=== PATIENT | male | born 1960 | race American Indian/Alaskan Native ===

== ENCOUNTER 2017-10-11 18:18 | Emergency (ER) | payer OTHER ==
--- NOTE | 2017-10-11 19:34 | Emergency Department Report ---
Chief Complaint: Laceration/Recheck/Suture Stated Complaint: STITCHES REMOVED Time Seen by Provider: 10/11/17 19:07 - HPI History of Present Illness: She is a 56-year-old -[place] male who is presenting [facility] his [facility] patient has a very extensive surgery performed on secondary to perforated viscus with large amounts of purulent material overlying most of his bowel. The patient had a colostomy done at that time patient was sutured using retention sutures that are in place currently. Patient was sent to the emergency department today to have his sutures removed. Patient has no further complaints at this time. Patient has a history of malignant neoplasm of the colon and again he also had a bowel rupture that was treated with colostomy and exploratory laparotomy. Patient during that visit was septic was given broad-spectrum antibiotics and white count did decrease significantly while in the emergency department. - Exam Vital Signs: Vital Signs 10/11/17 18:39 Temperature 97.9 F Pulse Rate 96 H Respiratory 16 Rate Blood Pressure 104/74 O2 Sat by Pulse 95 Oximetry Physical Exam: Brief physical exam patient is emaciated but in no acute distress. Patient is abdomen is soft he does have retention sutures in place. The wound is clean dry and intact. Patient's heart and lung exams are within normal limits. MSE screening note: Focused history and physical exam performed. Due to findings the following was ordered: ED Medical Decision Making - Medical Decision Making I slightly to the patient that unfortunately did not remove this type of suture from the emergency department To see the surgeon that placed the sutures. Because the patient does not appear to be in any distress and does not appear to be septic at this time I do not believe an emergent surgery consult is warranted. Patient will be sent back to [facility] and information for this surgeon who placed the sutures have been given. ED Disposition for MSE Clinical Impression: Encounter for wound care Disposition: DC-01 TO HOME OR SELFCARE Is pt being admited?: No Does the pt Need Aspirin: No Condition: Stable Additional Instructions: Please follow up with Dr. Connolly regarding the patient's sutures. This type of sutures: Hypertension suture is not removed from the emergency department. Because this is a surgical closure please consult the patient's surgeon for further management. Referrals: CHIKA CONNOLLY MD [Staff Physician] - 3-5 Days
[2017-10-11 21:24] VITALS: BP 113/73
== END 2017-10-11 21:15 | disposition home or self-care (01) ==
LOC: ED 18:18
DX: Z48.01 Encounter for change or removal of surgical wound dressing (principal); Z93.3 Colostomy status; Z53.21 Procedure and treatment not carried out due to patient leaving prior to being seen by health care provider

== ENCOUNTER 2017-10-12 12:24 | Inpatient (IN) | payer OTHER ==
[2017-10-12] MEDS ORDERED: NACL 0.9% 1000 ML 1,000 ML ONE (12:42)
[2017-10-12] MEDS ORDERED: D50W (25GM) Syringe IV ONE ×7 (12:42→19:31)
--- NOTE | 2017-10-12 13:23 | Emergency Department Report ---
HPI - General Time Seen by Provider: 10/12/17 12:56 - HPI HPI: Room 2 The patient is a 56-year-old male sent from alf for "failure to thrive. " The nurse at the alf states this morning she noticed a change in the patient's mental status has seemed more lethargic and was difficult to arouse. Nursing states they did not check an Accu-Chek at the alf. Patient was sent to the ED for evaluation. The patient arrived to the ED nonverbal and unresponsive. An Accu-Chek revealed hypoglycemia so the patient was subsequently administered D50 Location: Mental state Duration: Noticed this morning Quality: Lethargy Severity: Severe Modifying factors: [see above] Context: [see above] Mode of transportation: [not driving] ED Past Medical Hx - Past Medical History Previous Medical History?: Yes Hx Hypertension: Yes Hx Deep Vein Thrombosis: Yes Hx Pulmonary Embolism: Yes Hx Renal Disease: Yes (acute renal failure) Additional medical history: Perforated bowel, malnutrition, acute resp failure. - Surgical History Additional Surgical History: cervical fusion. Abd surgery (unknown) - Family History Family history: no significant - Social History Smoking Status: Unknown if ever smoked Substance Use Type: None - Medications Home Medications: Home Medications Medication Instructions Recorded Confirmed Last Taken Type ALBUTEROL NEB's [Proventil 0.083% 2.5 mg IH Q6HRT PRN nebu 09/14/17 Unknown Rx NEBS] ALPRAZolam [Xanax TAB] 0.5 mg PO Q12H PRN tablet 09/14/17 Unknown Rx Lisinopril [Zestril TAB] 40 mg PO QDAY tablet 09/14/17 Unknown Rx Lispro Insulin [Humalog] 0 unit SUB-Q Q6HR units 09/14/17 Unknown Rx Min Oil/Petrolatum [Artificial 1 applic OU Q4HR PRN tube 09/14/17 Unknown Rx Tears Ophth Oint] Ranitidine HCl [Zantac 150 MG TAB] 150 mg PO BID #60 tablet 09/14/17 Unknown Rx amLODIPine [Norvasc] 5 mg PO QDAY tablet 09/14/17 Unknown Rx ED Review of Systems ROS: Stated complaint: AMS Other details as noted in HPI Comment: Unobtainable due to pts medical conditions Physical Exam - Physical Exam Vital Signs: Vital Signs 10/12/17 12:56 Pulse Rate 82 Respiratory 12 Rate Blood Pressure 102/74 [Left] O2 Sat by Pulse 96 Oximetry Physical Exam: GENERAL: The patient is a thin cachectic appearing male lying on stretcher unresponsive to verbal or tactile stimuli HEENT: Normocephalic. Atraumatic. Sunken eyes NECK: Trachea midline CHEST/LUNGS: Clear to auscultation. There is no respiratory distress noted. HEART/CARDIOVASCULAR: Regular. There is no tachycardia. There is no gallop rub or murmur. Hypotensive on monitor ABDOMEN: Abdomen is soft, nontender. Patient has normal bowel sounds. There is no abdominal distention. Retention sutures in place SKIN: There is no rash. There is no diaphoresis. NEURO: The patient is lethargic and unresponsive (patient begins to moan and moves all extremities after D50 was administered) MUSCULOSKELETAL: There is no evidence of acute injury. ED Course Vital Signs 10/12/17 12:56 Pulse Rate 82 Respiratory 12 Rate Blood Pressure 102/74 [Left] O2 Sat by Pulse 96 Oximetry - Reevaluation(s) Reevaluation #1: 10/12/17 13:51 Patient awake and alert at this time. Patient currently denies any complaints. ED Medical Decision Making - Lab Data Result diagrams: 10/12/17 13:10 10/12/17 13:10 Laboratory Tests 10/12/17 10/12/17 10/12/17 12:45 12:57 13:10 WBC 7.3 RBC 3.02 L Hgb 10.1 L Hct 30.7 L MCV 101 H MCH 33 H MCHC 33 RDW 18.6 H Plt Count 143 PT INR APTT Sodium Potassium Chloride Carbon Dioxide Anion Gap Creatinine Estimated GFR Glucose POC Glucose < 40 L 192 H Calcium Total Bilirubin AST ALT Alkaline Phosphatase Total Creatine Kinase CK-MB (CK-2) CK-MB (CK-2) Rel Index Troponin T NT-Pro-B Natriuret Pep Total Protein Albumin Albumin/Globulin Ratio 10/12/17 10/12/17 10/12/17 13:10 13:10 13:10 WBC RBC Hgb Hct MCV MCH MCHC RDW Plt Count PT 21.0 H INR 1.70 H APTT 29.2 Sodium 150 H Potassium 5.6 H Chloride 102.1 Carbon Dioxide 33 H Anion Gap 21 Creatinine 1.3 Estimated GFR > 60 Glucose 173 H POC Glucose Calcium 6.0 L Total Bilirubin 1.90 H AST 120 H ALT 77 H Alkaline Phosphatase 716 H Total Creatine Kinase 261 H CK-MB (CK-2) 2.0 CK-MB (CK-2) Rel Index 0.7 Troponin T < 0.010 NT-Pro-B Natriuret Pep 1026 H Total Protein 4.9 L Albumin 2.2 L Albumin/Globulin Ratio 0.8 - EKG Data -: EKG Interpreted by Me EKG shows normal: sinus rhythm Rate: normal - EKG Data When compared to previous EKG there are: previous EKG unavailable Interpretation: other (low voltage in leads 1, 2, 3, aVR, aVL, aVF making interpretation difficult. Repeat EKG and adjusting gain did not improve tracing ) - Differential Diagnosis hypoglycemia, dehydration, ACS, Critical care attestation.: If time is entered above; I have spent that time in minutes in the direct care of this critically ill patient, excluding procedure time. ED Disposition Clinical Impression: Hypoglycemia, Dehydration, Hypernatremia, Mental status alteration Disposition: DC-09 OP ADMIT IP TO THIS HOSP Is pt being admited?: Yes Does the pt Need Aspirin: Yes Condition: Fair Referrals: MARK CALIXTO MD [Primary Care Provider] - 3-5 Days Time of Disposition: 14:58 (hospitalist paged (Dr Madison))
[2017-10-12 13:30] LABS: Hematocrit 30.7 % (35.5-45.6); Hemoglobin 10.1 gm/dl (11.8-15.2); Mean Corpuscular HGB Conc 33 % (32-34); Mean Corpuscular Hemoglobin 33 pg (28-32); Mean Corpuscular Volume 101 fl (84-94); Platelet Count 143 K/mm3 (140-440); Red Blood Count 3.02 M/mm3 (3.65-5.03); Red Cell Distribution Width 18.6 % (13.2-15.2)
[2017-10-12 13:41] LABS: INR 1.7 (0.87-1.13)
[2017-10-12 13:42] LABS: Partial Thromboplastin Time 29.2 Sec. (24.2-36.6)
[2017-10-12 13:49] LABS: Alanine Aminotransferase 77 units/L (7-56); Albumin 2.2 g/dL (3.9-5); Hemolysis Index 19
[2017-10-12 13:55] LABS: BUN/Creatinine Ratio 110; Blood Urea Nitrogen 143 mg/dL (9-20)
[2017-10-12] MEDS ORDERED: NACL 0.9% 500 ML 500 ML IV ONE (14:10)
[2017-10-12 14:18] LABS: Anisocytosis 1+; Band Neutrophils # (Manual) 0.1 K/mm3; Basophils % (Manual) 0 % (0.0-1.8); Eosinophils % (Manual) 0 % (0.0-4.3); Total Cells Counted 100
[2017-10-12 14:19] LABS: Platelet Estimate Cons
[2017-10-12] MEDS ORDERED: D10W 1,000 ML IV SCH (15:00)
--- NOTE | 2017-10-12 15:08 | History and Physical Report ---
History of Present Illness Chief complaint: confusion History of present illness: 56 YO Male [facility] Resident with Dementia, HTN, DVT, PE, Debility presents to ED for evaluation. Pt is lethargic and unable to provide history. Pt history taken from ED staff, EMS. As per SNF staff, the patient has experienced increasing confusion and was found to be difficult to arouse. EMS notified, and upon arrival the patient was found to be stuporous. Pt transported to [facility] for further care and evaluation. PT seen and evaluated in ED and found to be Encephalopathic, and with Myxedema coma, Hypernatremia, Hypoglycemic, hypothermic, and lactic Acidosis. Pt admitted to ICU. Past History Past Medical History: DVT, hypertension, pulmonary embolism, other (dementia, debility) Past Surgical History: bowel surgery, Other (cervical fusion) Social history: . denies: smoking, alcohol abuse Family history: no significant family history (reviewed) Medications and Allergies Allergies Allergy/AdvReac Type Severity Reaction Status Date / Time No Known Allergies Allergy Unverified 04/10/14 02:49 Home Medications Medication Instructions Recorded Confirmed Last Taken Type ALBUTEROL NEB's [Proventil 0.083% 2.5 mg IH Q6HRT PRN nebu 09/14/17 10/12/17 Unknown Rx NEBS] ALPRAZolam [Xanax TAB] 0.5 mg PO Q12H PRN tablet 09/14/17 10/12/17 Unknown Rx Lisinopril [Zestril TAB] 40 mg PO QDAY tablet 09/14/17 10/12/17 Unknown Rx Lispro Insulin [Humalog] 0 unit SUB-Q Q6HR units 09/14/17 10/12/17 Unknown Rx Min Oil/Petrolatum [Artificial 1 applic OU Q4HR PRN tube 09/14/17 10/12/17 Unknown Rx Tears Ophth Oint] Ranitidine HCl [Zantac 150 MG TAB] 150 mg PO BID #60 tablet 09/14/17 10/12/17 Unknown Rx amLODIPine [Norvasc] 5 mg PO QDAY tablet 09/14/17 10/12/17 Unknown Rx Active Meds: Active Medications Dextrose (D10w) 1,000 mls @ 150 mls/hr IV DIRECT IAIN Review of Systems Constitutional: no weight loss, no weight gain, no fever Ears, nose, mouth and throat: no ear pain, no ear discharge, no tinnitis, no decreased hearing, no nose pain, no nasal congestion, no nasal discharge Cardiovascular: no chest pain, no orthopnea, no palpitations, no edema, no syncope, no lightheadedness, no shortness of breath Respiratory: no cough, no cough with sputum, no excessive sputum, no hemoptysis , no shortness of breath, no dyspnea on exertion Gastrointestinal: no abdominal pain, no nausea, no vomiting, no diarrhea, no constipation Genitourinary Male: no hematuria, no flank pain, no discharge, no urinary frequency, no urinary hesitancy Rectal: no pain, no incontinence, no bleeding Musculoskeletal: no neck stiffness, no neck pain, no shooting arm pain, no arm numbness/tingling, no low back pain, no shooting leg pain Integumentary: no rash, no pruritis, no redness, no sores, no wounds, no jaundice Neurological: no head injury, no transient paralysis, no paralysis, no weakness , no parathesias, no numbness, no tingling, no seizures, no syncope Psychiatric: no anxiety, no memory loss, no change in sleep habits, no sleep disturbances, no insomnia, no hypersomnia, no change in appetite, no change in libido Endocrine: no cold intolerance, no heat intolerance, no polyphagia, no excessive thirst, no polydipsia, no polyuria, no nocturia, no excessive sweating Hematologic/Lymphatic: no easy bruising, no easy bleeding, no lymphadenopathy, no lymphedema Allergic/Immunologic: no urticaria, no allergic rhinitis, no wheezing, no persistent infections, no anaphylaxis Exam - Constitutional Vitals: Temp Pulse Resp BP Pulse Ox 94.3 F L 73 14 107/69 100 10/12/17 14:28 10/12/17 14:00 10/12/17 14:00 10/12/17 14:00 10/12/17 14:00 General appearance: Present: mild distress - EENT Eyes: Present: PERRL, miosis ENT: hearing intact, clear oral mucosa - Neck Neck: Present: supple, normal ROM - Respiratory Respiratory effort: normal Respiratory: bilateral: diminished - Cardiovascular Heart Sounds: Present: S1 & S2. Absent: rub, click - Extremities Extremities: pulses symmetrical, No edema Peripheral Pulses: within normal limits - Abdominal General gastrointestinal: Present: soft, non-tender, non-distended, normal bowel sounds Male genitourinary: Present: normal - Integumentary Integumentary: Present: clear, dry, clammy, decreased turgor - Musculoskeletal Musculoskeletal: generalized weakness - Psychiatric Psychiatric: no intact judgment & insight, no memory intact - Neurologic Neurologic: no focal deficits, moves all extremities, no gait normal Results - Labs CBC & Chem 7: 10/12/17 13:10 10/12/17 13:10 Labs: Abnormal lab results 10/12/17 10/12/17 10/12/17 Range/Units 12:45 12:57 13:10 RBC 3.02 L (3.65-5.03) M/mm3 Hgb 10.1 L (11.8-15.2) gm/dl Hct 30.7 L (35.5-45.6) % MCV 101 H (84-94) fl MCH 33 H (28-32) pg RDW 18.6 H (13.2-15.2) % Seg Neuts % (Manual) 83.0 H (40.0-70.0) % Lymphocytes % (Manual) 13.0 L (13.4-35.0) % Nucleated RBC % 2.0 H (0.0-0.9) % Lymphocytes # (Manual) 0.9 L (1.2-5.4) K/mm3 PT (12.2-14.9) Sec. INR (0.87-1.13) Sodium (137-145) mmol/L Potassium (3.6-5.0) mmol/L Carbon Dioxide (22-30) mmol/L BUN (9-20) mg/dL Glucose (75-100) mg/dL POC Glucose < 40 L 192 H (70-105) Lactic Acid (0.7-2.0) mmol/L Calcium (8.4-10.2) mg/dL Total Bilirubin (0.1-1.2) mg/dL AST (5-40) units/L ALT (7-56) units/L Alkaline Phosphatase (35-129) units/L Total Creatine Kinase (55-170) units/L NT-Pro-B Natriuret Pep (0-900) pg/mL Total Protein (6.3-8.2) g/dL Albumin (3.9-5) g/dL 10/12/17 10/12/17 10/12/17 Range/Units 13:10 13:10 13:10 RBC (3.65-5.03) M/mm3 Hgb (11.8-15.2) gm/dl Hct (35.5-45.6) % MCV (84-94) fl MCH (28-32) pg RDW (13.2-15.2) % Seg Neuts % (Manual) (40.0-70.0) % Lymphocytes % (Manual) (13.4-35.0) % Nucleated RBC % (0.0-0.9) % Lymphocytes # (Manual) (1.2-5.4) K/mm3 PT 21.0 H (12.2-14.9) Sec. INR 1.70 H (0.87-1.13) Sodium 150 H (137-145) mmol/L Potassium 5.6 H (3.6-5.0) mmol/L Carbon Dioxide 33 H (22-30) mmol/L BUN 143 H (9-20) mg/dL Glucose 173 H (75-100) mg/dL POC Glucose (70-105) Lactic Acid (0.7-2.0) mmol/L Calcium 6.0 L (8.4-10.2) mg/dL Total Bilirubin 1.90 H (0.1-1.2) mg/dL AST 120 H (5-40) units/L ALT 77 H (7-56) units/L Alkaline Phosphatase 716 H (35-129) units/L Total Creatine Kinase 261 H (55-170) units/L NT-Pro-B Natriuret Pep 1026 H (0-900) pg/mL Total Protein 4.9 L (6.3-8.2) g/dL Albumin 2.2 L (3.9-5) g/dL 10/12/17 10/12/17 Range/Units 13:36 14:22 RBC (3.65-5.03) M/mm3 Hgb (11.8-15.2) gm/dl Hct (35.5-45.6) % MCV (84-94) fl MCH (28-32) pg RDW (13.2-15.2) % Seg Neuts % (Manual) (40.0-70.0) % Lymphocytes % (Manual) (13.4-35.0) % Nucleated RBC % (0.0-0.9) % Lymphocytes # (Manual) (1.2-5.4) K/mm3 PT (12.2-14.9) Sec. INR (0.87-1.13) Sodium (137-145) mmol/L Potassium (3.6-5.0) mmol/L Carbon Dioxide (22-30) mmol/L BUN (9-20) mg/dL Glucose (75-100) mg/dL POC Glucose 48 L (70-105) Lactic Acid 5.90 H* (0.7-2.0) mmol/L Calcium (8.4-10.2) mg/dL Total Bilirubin (0.1-1.2) mg/dL AST (5-40) units/L ALT (7-56) units/L Alkaline Phosphatase (35-129) units/L Total Creatine Kinase (55-170) units/L NT-Pro-B Natriuret Pep (0-900) pg/mL Total Protein (6.3-8.2) g/dL Albumin (3.9-5) g/dL Assessment and Plan - Patient Problems (1) Myxedema coma Current Visit: Yes Status: Acute Plan to address problem: thyroid panel, IV synthroid, IVF resuscitation, CT head, neuro checks, aspiration precautions. The high probability of a clinically significant, sudden or life threatening deterioration of the [neuro, endocrine, respiratory,renal] system(s) required my full and direct attention, intervention and personal management. The aggregate critical care time was [65] minutes. This time is in addition to time spent performing reported procedures but includes the following: [x] Data Review and interpretation [x] Patient assessment and monitoring of vital signs [x] Documentation [x] Medication orders and management (2) Hypoglycemia Current Visit: Yes Status: Acute Plan to address problem: D10, Ampule D50, treat myxedema, serial bmp (3) Encephalopathy Current Visit: Yes Status: Acute Plan to address problem: CT Head, neuro checks, IVF resuscitation, aspiration precautions, seizure precautions, (4) Lactic acid acidosis Current Visit: Yes Status: Acute Plan to address problem: serial lactic acid level, IVF resuscitations, (5) Hypernatremia Current Visit: Yes Status: Acute Plan to address problem: IVF resuscitation therapy, serial bmp, monitor uop q shift, (6) DVT prophylaxis Current Visit: Yes Status: Acute Plan to address problem: SCD to BLE while in bed.
[2017-10-12 15:49] LABS: Free T4 (Free Thyroxine) 0.32 ng/dL (0.76-1.46)
[2017-10-12 16:53] LABS: Bilirubin,Urine NEG (Negative); Blood,Urine MOD (Negative); Color,Urine Yellow (Yellow); Mucus,Urine FEW /HPF; Protein,Urine <15 mg/dL mg/dL (Negative); RBC,Urine < 1.0 /HPF (0.0-6.0); Urobilinogen,Urine < 2.0 mg/dL (<2.0); WBC,Urine < 1.0 /HPF (0.0-6.0)
[2017-10-12] MEDS ORDERED: ZOFRAN IV PRN (16:57)
[2017-10-12] MEDS ORDERED: PROVENTIL IH PRN (16:57)
[2017-10-12] MEDS ORDERED: XANAX PO PRN (16:59)
[2017-10-12] MEDS ORDERED: D5/0.45NS 1,000 ML IV SCH (17:00)
[2017-10-12] MEDS ORDERED: NACL 0.45% 2,000 ML IV SCH (19:00)
[2017-10-12] MEDS ORDERED: NACL 0.45% 1000 ML 1,000 ML IV SCH (19:07)
[2017-10-12] MEDS: SYNTHROID IV SCH (19:37)
[2017-10-12 19:58] LABS: Hemolysis Index 3
[2017-10-12 20:08] LABS: BUN/Creatinine Ratio 108; Blood Urea Nitrogen 140 mg/dL (9-20)
[2017-10-12 20:12] LABS: Calcium 5.8 mg/dL (8.4-10.2)
--- NOTE | 2017-10-12 20:37 | Cat Scan Report ---
FINAL REPORT PROCEDURE: CT HEAD/BRAIN WO CON TECHNIQUE: Computerized tomography of the head was performed without contrast material. HISTORY: confusion COMPARISON: No prior studies are available for comparison. FINDINGS: Skull and scalp: Normal. Paranasal sinuses: Normal. Ventricles and subarachnoid spaces: Normal. Cerebrum: No evidence of hemorrhage, acute infarction or mass . Cerebellum and brainstem: No evidence of hemorrhage, acute infarction or mass. Vasculature: Normal. Comments: None. IMPRESSION: Normal Examination
[2017-10-12] MEDS ORDERED: PEPCID PO SCH (22:00)
[2017-10-12] MEDS ORDERED: NON-FORMULARY (Ranitidine Hcl [Zantac 150 Mg Tab] 150 MG) PO SCH (22:00)
[2017-10-12] MEDS: SODIUM CHLORIDE FLUSH SYRINGE 10 ML IV SCH (22:08)
[2017-10-12] MEDS: D10W 1,000 ML IV SCH (22:56)
[2017-10-13] MEDS: TYLENOL PO PRN ×2 (02:11→21:56)
--- NOTE | 2017-10-13 09:21 | Consultation ---
History of Present Illness Consult date: 10/13/17 Requesting physician: XOCHITL BENOIT Reason for consult: other (Severe Sepsis) History of present illness: PULMONARY/CCM CONSULT NOTE (Full dictation # [id number]) Please see dictated notes for full details Past History Past Medical History: DVT, hypertension, pulmonary embolism, other (dementia, debility) Past Surgical History: bowel surgery, Other (cervical fusion) Social history: . denies: smoking, alcohol abuse Family history: no significant family history (reviewed) Medications and Allergies Allergies Allergy/AdvReac Type Severity Reaction Status Date / Time No Known Allergies Allergy Unverified 04/10/14 02:49 Home Medications Medication Instructions Recorded Confirmed Last Taken Type ALBUTEROL NEB's [Proventil 0.083% 2.5 mg IH Q6HRT PRN nebu 09/14/17 10/12/17 Unknown Rx NEBS] ALPRAZolam [Xanax TAB] 0.5 mg PO Q12H PRN tablet 09/14/17 10/12/17 Unknown Rx Lisinopril [Zestril TAB] 40 mg PO QDAY tablet 09/14/17 10/12/17 Unknown Rx Lispro Insulin [Humalog] 0 unit SUB-Q Q6HR units 09/14/17 10/12/17 Unknown Rx Min Oil/Petrolatum [Artificial 1 applic OU Q4HR PRN tube 09/14/17 10/12/17 Unknown Rx Tears Ophth Oint] Ranitidine HCl [Zantac 150 MG TAB] 150 mg PO BID #60 tablet 09/14/17 10/12/17 Unknown Rx amLODIPine [Norvasc] 5 mg PO QDAY tablet 09/14/17 10/12/17 Unknown Rx Active Meds: Active Medications Acetaminophen (Tylenol) 650 mg PO Q4H PRN PRN Reason: Pain MILD(1-3)/Fever >100.5/SINGH Last Admin: 10/13/17 02:11 Dose: 650 mg Albuterol (Proventil) 2.5 mg IH Q4HRT PRN PRN Reason: Shortness Of Breath Alprazolam (Xanax) 0.5 mg PO Q12H PRN PRN Reason: Anxiety Famotidine (Pepcid) 20 mg PO BID IAIN Last Admin: 10/12/17 22:08 Dose: 20 mg Dextrose/Sodium Chloride (D5/0.45ns) 1,000 mls @ 75 mls/hr IV DIRECT IAIN Last Admin: 10/12/17 19:53 Dose: 75 mls/hr Sodium Chloride (Nacl 0.45% 1000 Ml) 1,000 mls @ 500 mls/hr IV DIRECT IAIN Dextrose (D10w) 1,000 mls @ 75 mls/hr IV DIRECT IAIN Last Admin: 10/12/17 22:56 Dose: 75 mls/hr Sodium Chloride (Nacl 0.9% 1000 Ml) 1,000 mls @ 999 mls/hr IV ONCE IAIN Stop: 10/13/17 11:01 Sodium Chloride (Nacl 0.9% 1000 Ml) 1,000 mls @ 150 mls/hr IV DIRECT IAIN Stop: 10/15/17 16:39 Norepinephrine (Levophed Drip 4 Mg/Ns 250 Ml) 4 mg in 250 mls @ 7.5 mls/hr IV TITR IAIN; Protocol Levothyroxine Sodium (Synthroid) 100 mcg IV DAILY@0600 [facility] Last Admin: 10/12/17 19:37 Dose: 100 mcg Ondansetron HCl (Zofran) 4 mg IV Q8H PRN PRN Reason: Nausea And Vomiting Sodium Chloride (Sodium Chloride Flush Syringe 10 Ml) 10 ml IV BID [facility] Last Admin: 10/12/17 22:08 Dose: 10 ml Sodium Chloride (Sodium Chloride Flush Syringe 10 Ml) 10 ml IV PRN PRN PRN Reason: LINE FLUSH Physical Examination Vital signs: Vital Signs Pulse Resp BP Pulse Ox 57 L 10 L 45/24 96 10/12/17 12:33 10/12/17 12:33 10/12/17 12:33 10/12/17 12:33 Results - Laboratory Findings CBC and BMP: 10/12/17 13:10 10/12/17 19:34 ABG POC ABG pH 7.366 (7.35-7.45) 10/12/17 22:56 POC ABG pCO2 40.2 (35-45) 10/12/17 22:56 POC ABG pO2 105 (80-105) 10/12/17 22:56 POC ABG HCO3 23.0 10/12/17 22:56 POC ABG Total CO2 24 10/12/17 22:56 POC ABG O2 Sat 98 10/12/17 22:56 PT/INR, D-dimer PT 21.0 Sec. (12.2-14.9) H 10/12/17 13:10 INR 1.70 (0.87-1.13) H 10/12/17 13:10 Abnormal lab findings: Abnormal Labs 10/12/17 10/12/17 10/12/17 12:45 12:57 13:10 RBC 3.02 L Hgb 10.1 L Hct 30.7 L MCV 101 H MCH 33 H RDW 18.6 H Seg Neuts % (Manual) 83.0 H Lymphocytes % (Manual) 13.0 L Nucleated RBC % 2.0 H Lymphocytes # (Manual) 0.9 L PT INR Sodium Potassium Carbon Dioxide BUN Glucose POC Glucose < 40 L 192 H Lactic Acid Calcium Total Bilirubin AST ALT Alkaline Phosphatase Total Creatine Kinase NT-Pro-B Natriuret Pep Total Protein Albumin TSH Free T4 10/12/17 10/12/17 10/12/17 13:10 13:10 13:10 RBC Hgb Hct MCV MCH RDW Seg Neuts % (Manual) Lymphocytes % (Manual) Nucleated RBC % Lymphocytes # (Manual) PT 21.0 H INR 1.70 H Sodium 150 H Potassium 5.6 H Carbon Dioxide 33 H BUN 143 H Glucose 173 H POC Glucose Lactic Acid Calcium 6.0 L Total Bilirubin 1.90 H AST 120 H ALT 77 H Alkaline Phosphatase 716 H Total Creatine Kinase 261 H NT-Pro-B Natriuret Pep 1026 H Total Protein 4.9 L Albumin 2.2 L TSH Free T4 10/12/17 10/12/17 10/12/17 13:36 14:22 14:45 RBC Hgb Hct MCV MCH RDW Seg Neuts % (Manual) Lymphocytes % (Manual) Nucleated RBC % Lymphocytes # (Manual) PT INR Sodium Potassium Carbon Dioxide BUN Glucose POC Glucose 48 L Lactic Acid 5.90 H* 9.10 H* Calcium Total Bilirubin AST ALT Alkaline Phosphatase Total Creatine Kinase NT-Pro-B Natriuret Pep Total Protein Albumin TSH Free T4 10/12/17 10/12/17 10/12/17 14:59 15:04 16:11 RBC Hgb Hct MCV MCH RDW Seg Neuts % (Manual) Lymphocytes % (Manual) Nucleated RBC % Lymphocytes # (Manual) PT INR Sodium Potassium Carbon Dioxide BUN Glucose POC Glucose 109 H Lactic Acid 9.10 H* Calcium Total Bilirubin AST ALT Alkaline Phosphatase Total Creatine Kinase NT-Pro-B Natriuret Pep Total Protein Albumin TSH 5.130 H Free T4 0.32 L 10/12/17 10/12/17 10/12/17 17:23 18:41 19:34 RBC Hgb Hct MCV MCH RDW Seg Neuts % (Manual) Lymphocytes % (Manual) Nucleated RBC % Lymphocytes # (Manual) PT INR Sodium 149 H Potassium Carbon Dioxide BUN 140 H Glucose POC Glucose 117 H Lactic Acid 10.20 H* Calcium 5.8 L* Total Bilirubin AST ALT Alkaline Phosphatase Total Creatine Kinase NT-Pro-B Natriuret Pep Total Protein Albumin TSH Free T4 10/12/17 10/12/17 10/12/17 19:40 22:34 Unknown RBC Hgb Hct MCV MCH RDW Seg Neuts % (Manual) Lymphocytes % (Manual) Nucleated RBC % Lymphocytes # (Manual) PT INR Sodium Potassium Carbon Dioxide BUN Glucose POC Glucose 139 H 54 L Lactic Acid 9.90 H* Calcium Total Bilirubin AST ALT Alkaline Phosphatase Total Creatine Kinase NT-Pro-B Natriuret Pep Total Protein Albumin TSH Free T4
[2017-10-13] MEDS: LEVOPHED DRIP 4 MG/NS 250 ML 4 MG/250 ML BAG IV SCH (09:46)
[2017-10-13] MEDS: D50W (25GM) Syringe IV PRN ×4 (09:46→21:56)
[2017-10-13] MEDS: SODIUM CHLORIDE FLUSH SYRINGE 10 ML IV SCH ×2 (09:47→21:51)
[2017-10-13] MEDS: VANCOMYCIN 1,250 MG in NACL 0.9% 250ML 250 ML IV SCH (09:54)
[2017-10-13] MEDS ORDERED: NACL 0.9% 1000 ML 1,000 ML IV SCH (10:00)
[2017-10-13] MEDS ORDERED: VANCOMYCIN PHARMACY TO DOSE IV SCH (10:00)
[2017-10-13] MEDS: PEPCID IV SCH ×2 (10:47→21:46)
[2017-10-13] MEDS: NACL 0.9% 1000 ML 1,000 ML IV SCH ×2 (10:53→18:08)
--- NOTE | 2017-10-13 11:44 | XRay Report ---
AP CHEST: HISTORY: SIRS Heart pulmonary vascularity are within normal limits. There is hazy opacity at the right lung base which probably represents right basilar atelectasis or small layering right pleural effusion. The left lung is clear. No convincing pneumonia or pneumothorax. Left arm PICC terminates in the superior right atrium. The right IJ venous catheter has been removed since 09/08/17.
[2017-10-13] MEDS: MORPHINE IV PRN ×3 (12:02→22:45)
--- NOTE | 2017-10-13 12:03 | Progress Note ---
Assessment and Plan Assessment and plan: Septic shock. Patient will be maintained on pressors to keep MAP greater than 65. Start IV antibiotics of vancomycin and cefepime. ID consultation. Follow- up blood and urine cultures. Patient with significant lactic acidosis. Patient with purulent drainage from the abdominal wound from previous exploratory lap/sigmoid colectomy/colostomy. s/p perforated abdominal viscus with s/p exploratory lap, sigmoid colectomy, colostomy and Burnette's pouch on 08/28. Myxedema coma. Continue IV Synthroid. Check thyroid panel. Hypoglycemia. Continue IV dextrose. Monitor BMP. Toxic metabolic encephalopathy. Continue to treat underlying causes. Elevated LFTs. Etiology likely secondary to ischemic hepatitis from #1. Continue to monitor LFTs. Adenocarcinoma of the colon. Patient with moderately differentiated adenocarcinoma of the sigmoid colon with invasion into the muscularis propria Disposition. Patient's prognosis is extremely guarded. Patient is at increased risk for mortality given the significant lactic acidosis. The high probability of a clinically significant, sudden or life threatening deterioration of the [hemodynamic, immunologic and endocrine] system(s) required my full and direct attention, intervention and personal management. The aggregate critical care time was [32] minutes. This time is in addition to time spent performing reported procedures but includes the following: [x] Data Review and interpretation [x] Patient assessment and monitoring of vital signs [x] Documentation [x] Medication orders and management History Interval history: 56 YO Male Senior Living Resident with Dementia, HTN, DVT, PE, Debility who was admitted through the emergency department with encephalopathy,Myxedema coma, Hypernatremia, Hypoglycemic and septic shock. Patient now requiring pressors and currently in the ICU Hospitalist Physical - Constitutional Vitals: Temp Pulse Resp BP Pulse Ox 97.7 F 82 14 94/57 100 10/13/17 08:00 10/13/17 06:11 10/13/17 06:11 10/13/17 06:11 10/13/17 07:30 General appearance: Present: mild distress - EENT Eyes: Present: PERRL, EOM intact ENT: hearing intact, clear oral mucosa, dentition normal - Neck Neck: Present: supple, normal ROM - Respiratory Respiratory effort: normal Respiratory: bilateral: diminished, rhonchi - Cardiovascular Rhythm: regular Heart Sounds: Present: S1 & S2. Absent: gallop, rub - Extremities Extremities: no ischemia, No edema, Full ROM - Abdominal General gastrointestinal: soft, non-tender, non-distended, normal bowel sounds - Integumentary Integumentary: Present: clear, warm, dry - Neurologic Neurologic: CNII-XII intact, moves all extremities Results - Labs CBC & Chem 7: 10/12/17 13:10 10/12/17 19:34 Labs: Laboratory Last Values WBC 7.3 K/mm3 (4.5-11.0) 10/12/17 13:10 RBC 3.02 M/mm3 (3.65-5.03) L 10/12/17 13:10 Hgb 10.1 gm/dl (11.8-15.2) L 10/12/17 13:10 Hct 30.7 % (35.5-45.6) L 10/12/17 13:10 MCV 101 fl (84-94) H 10/12/17 13:10 MCH 33 pg (28-32) H 10/12/17 13:10 MCHC 33 % (32-34) 10/12/17 13:10 RDW 18.6 % (13.2-15.2) H 10/12/17 13:10 Plt Count 143 K/mm3 (140-440) 10/12/17 13:10 Add Manual Diff Complete 10/12/17 13:10 Total Counted 100 10/12/17 13:10 Seg Neuts % (Manual) 83.0 % (40.0-70.0) H 10/12/17 13:10 Band Neutrophils % 2.0 % 10/12/17 13:10 Lymphocytes % (Manual) 13.0 % (13.4-35.0) L 10/12/17 13:10 Reactive Lymphs % (Man) 0 % 10/12/17 13:10 Monocytes % (Manual) 1.0 % (0.0-7.3) 10/12/17 13:10 Eosinophils % (Manual) 0 % (0.0-4.3) 10/12/17 13:10 Basophils % (Manual) 0 % (0.0-1.8) 10/12/17 13:10 Metamyelocytes % 1.0 % 10/12/17 13:10 Myelocytes % 0 % 10/12/17 13:10 Promyelocytes % 0 % 10/12/17 13:10 Blast Cells % 0 % 10/12/17 13:10 Nucleated RBC % 2.0 % (0.0-0.9) H 10/12/17 13:10 Seg Neutrophils # Man 6.1 K/mm3 (1.8-7.7) 10/12/17 13:10 Band Neutrophils # 0.1 K/mm3 10/12/17 13:10 Lymphocytes # (Manual) 0.9 K/mm3 (1.2-5.4) L 10/12/17 13:10 Abs React Lymphs (Man) 0.0 K/mm3 10/12/17 13:10 Monocytes # (Manual) 0.1 K/mm3 (0.0-0.8) 10/12/17 13:10 Eosinophils # (Manual) 0.0 K/mm3 (0.0-0.4) 10/12/17 13:10 Basophils # (Manual) 0.0 K/mm3 (0.0-0.1) 10/12/17 13:10 Metamyelocytes # 0.1 K/mm3 10/12/17 13:10 Myelocytes # 0.0 K/mm3 10/12/17 13:10 Promyelocytes # 0.0 K/mm3 10/12/17 13:10 Blast Cells # 0.0 K/mm3 10/12/17 13:10 WBC Morphology Not Reportable 10/12/17 13:10 Hypersegmented Neuts Not Reportable 10/12/17 13:10 Hyposegmented Neuts Not Reportable 10/12/17 13:10 Hypogranular Neuts Not Reportable 10/12/17 13:10 Smudge Cells Not Reportable 10/12/17 13:10 Toxic Granulation Not Reportable 10/12/17 13:10 Toxic Vacuolation Not Reportable 10/12/17 13:10 Dohle Bodies Not Reportable 10/12/17 13:10 Pelger-Huet Anomaly Not Reportable 10/12/17 13:10 Hermila Rods Not Reportable 10/12/17 13:10 Platelet Estimate Cons 10/12/17 13:10 Clumped Platelets Not Reportable 10/12/17 13:10 Plt Clumps, EDTA Not Reportable 10/12/17 13:10 Large Platelets Not Reportable 10/12/17 13:10 Giant Platelets Not Reportable 10/12/17 13:10 Platelet Satelliting Not Reportable 10/12/17 13:10 Plt Morphology Comment Not Reportable 10/12/17 13:10 RBC Morphology Not Reportable 10/12/17 13:10 Dimorphic RBCs Not Reportable 10/12/17 13:10 Polychromasia Not Reportable 10/12/17 13:10 Hypochromasia Not Reportable 10/12/17 13:10 Poikilocytosis Not Reportable 10/12/17 13:10 Anisocytosis 1+ 10/12/17 13:10 Microcytosis Not Reportable 10/12/17 13:10 Macrocytosis Not Reportable 10/12/17 13:10 Spherocytes Not Reportable 10/12/17 13:10 Pappenheimer Bodies Not Reportable 10/12/17 13:10 Sickle Cells Not Reportable 10/12/17 13:10 Target Cells Not Reportable 10/12/17 13:10 Tear Drop Cells Not Reportable 10/12/17 13:10 Ovalocytes Not Reportable 10/12/17 13:10 Helmet Cells Not Reportable 10/12/17 13:10 [place] Bodies Not Reportable 10/12/17 13:10 [place] Rings Not Reportable 10/12/17 13:10 Piyush Cells Not Reportable 10/12/17 13:10 Bite Cells Not Reportable 10/12/17 13:10 Crenated Cell Not Reportable 10/12/17 13:10 Elliptocytes Not Reportable 10/12/17 13:10 Acanthocytes (Spur) Not Reportable 10/12/17 13:10 Rouleaux Not Reportable 10/12/17 13:10 Hemoglobin C Crystals Not Reportable 10/12/17 13:10 Schistocytes Not Reportable 10/12/17 13:10 Malaria parasites Not Reportable 10/12/17 13:10 Jadon Bodies Not Reportable 10/12/17 13:10 Hem Pathologist Commnt No 10/12/17 13:10 PT 21.0 Sec. (12.2-14.9) H 10/12/17 13:10 INR 1.70 (0.87-1.13) H 10/12/17 13:10 APTT 29.2 Sec. (24.2-36.6) 10/12/17 13:10 POC ABG pH 7.366 (7.35-7.45) 10/12/17 22:56 POC ABG pCO2 40.2 (35-45) 10/12/17 22:56 POC ABG pO2 105 (80-105) 10/12/17 22:56 POC ABG HCO3 23.0 10/12/17 22:56 POC ABG Total CO2 24 10/12/17 22:56 POC ABG O2 Sat 98 10/12/17 22:56 POC ABG Base Excess -2 10/12/17 22:56 FiO2 28 % 10/12/17 22:56 Sodium 149 mmol/L (137-145) H 10/12/17 19:34 Potassium 4.7 mmol/L (3.6-5.0) 10/12/17 19:34 Chloride 98.5 mmol/L (98-107) 10/12/17 19:34 Carbon Dioxide 22 mmol/L (22-30) D 10/12/17 19:34 Anion Gap 33 mmol/L 10/12/17 19:34 BUN 140 mg/dL (9-20) H 10/12/17 19:34 Creatinine 1.3 mg/dL (0.8-1.5) 10/12/17 19:34 Estimated GFR > 60 ml/min 10/12/17 19:34 BUN/Creatinine Ratio 108 % 10/12/17 19:34 Glucose 86 mg/dL (75-100) 10/12/17 19:34 POC Glucose 54 (70-105) L 10/12/17 22:34 Lactic Acid 9.90 mmol/L (0.7-2.0) H* 10/12/17 Unknown Calcium 5.8 mg/dL (8.4-10.2) L* 10/12/17 19:34 Total Bilirubin 1.90 mg/dL (0.1-1.2) H 10/12/17 13:10 AST 120 units/L (5-40) H 10/12/17 13:10 ALT 77 units/L (7-56) H 10/12/17 13:10 Alkaline Phosphatase 716 units/L (35-129) H 10/12/17 13:10 Total Creatine Kinase 261 units/L (55-170) H 10/12/17 13:10 CK-MB (CK-2) 2.0 ng/mL (0.0-4.0) 10/12/17 13:10 CK-MB (CK-2) Rel Index 0.7 (0-4) 10/12/17 13:10 Troponin T < 0.010 ng/mL (0.00-0.029) 10/12/17 13:10 C-Reactive Protein 1.60 mg/dL (0.00-1.30) H 10/13/17 11:02 NT-Pro-B Natriuret Pep 1026 pg/mL (0-900) H 10/12/17 13:10 Total Protein 4.9 g/dL (6.3-8.2) L 10/12/17 13:10 Albumin 2.2 g/dL (3.9-5) L 10/12/17 13:10 Albumin/Globulin Ratio 0.8 % 10/12/17 13:10 TSH 5.130 mlU/mL (0.270-4.200) H 10/12/17 15:04 Free T4 0.32 ng/dL (0.76-1.46) L 10/12/17 15:04 Urine Color Yellow (Yellow) 10/12/17 16:20 Urine Turbidity Clear (Clear) 10/12/17 16:20 Urine pH 5.0 (5.0-7.0) 10/12/17 16:20 Ur Specific [place] 1.013 (1.003-1.030) 10/12/17 16:20 Urine Protein <15 mg/dl mg/dL (Negative) 10/12/17 16:20 Urine Glucose (UA) Neg mg/dL (Negative) 10/12/17 16:20 Urine Ketones Neg mg/dL (Negative) 10/12/17 16:20 Urine Blood Mod (Negative) 10/12/17 16:20 Urine Nitrite Neg (Negative) 10/12/17 16:20 Urine Bilirubin Neg (Negative) 10/12/17 16:20 Urine Urobilinogen < 2.0 mg/dL (<2.0) 10/12/17 16:20 Ur Leukocyte Esterase Neg (Negative) 10/12/17 16:20 Urine WBC (Auto) < 1.0 /HPF (0.0-6.0) 10/12/17 16:20 Urine RBC (Auto) < 1.0 /HPF (0.0-6.0) 10/12/17 16:20 U Epithel Cells (Auto) < 1.0 /HPF (0-13.0) 10/12/17 16:20 Urine Mucus Few /HPF 10/12/17 16:20
[2017-10-13 13:20] LABS: Creatinine,Urine 34.6 mg/dL (0.1-20.0)
[2017-10-13] MEDS: HEPARIN SUB-Q SCH ×2 (13:42→21:46)
[2017-10-13] MEDS: MAXIPIME 2 GM in NACL 0.9% 20 ML IV SCH ×2 (13:46→21:46)
--- NOTE | 2017-10-13 14:34 | Consultation ---
History of Present Illness - Reason for Consult Consult date: 10/13/17 sepsis abd wound infection Requesting physician: ALISSA LAROSE - History of Present Illness 56 years old male with history of hypertension; admitted on 08/28/17-09/14/17 [facility] due to worsening abdominal pain. It seems like patient was having abdominal pain for the last 2 weeks. Patient was evaluated by his primary care physician and was referred to have a colonoscopy. Upon arrival to the ED, initial temperature was 97.7, heart rate 95, respirations 16, blood pressure 90/ 49. Initial white count 12.7 with 31% bands. Hemoglobin 12. Platelets 295. Potassium 7.2. Creatinine 6.2. Lactic acid 8.5. CT of the abdomen show a raised fluid and free air from a possible colonic perforation. Also showed multiple liver metastases. Patient was taken emergently to the to the OR and underwent exploratory laparotomy, loop end colostomy, Akira pouch and bowel resection on 08/28/2017. Patient was seen by ID and found to have severe sepsis with initial septic shock and all DS. Sepsis etiology was felt to be perforation and fecal peritonitis. However patient kept having increasing leukocytosis. He was intubated and at some point it was felt that he may have pneumonia. Or cultures grew+ Ecoli, Klebsiella, Citrobacter and Tiff albicans. Patient was treated with broad-spectrum antibiotics vancomycin, Zosyn , fluconazole. Unfortunately, patient was readmitted on 10/12/17 due to increasing confusion and was found to be difficult to arouse. EMS notified, and upon arrival the patient was found to be stuporous. In the ED, initial temperature was 94.3, heart rate 57, respirations 10, O2 sat 96, blood pressure 45/24. Initial white count 7.3. Hemoglobin 10.1. Platelets 143. Creatinine 1.3. Lactic acid 9.1. AST 120. ALT 77. Alkaline phosphatase 719. Sodium 150. Potassium 5.6. CRP 1.6. Urinalysis was negative. Blood cultures are growing gram-positive cocci in clusters 2 out of 4 bottles. Chest x-ray showed hazy opacity in the right lower lobe. Microbiology: Blood cultures: 08/29 neg / GPC in clusters Respiratory cultures: 08/28 neg OR cultures: 08/28 Ecoli, Klebsiella, Citrobacter and Tiff albicans Current Antimicrobials: cefepime 10/13 vanco 5/ Previous Antimicrobials: Vancomycin 08/28-09/06 Zosyn 08/28-09/06 Fluconazole 08/28-09/10 levaquin 09/06-09/10 Past History Past Medical History: DVT, hypertension, pulmonary embolism, other (dementia, debility) Past Surgical History: bowel surgery, Other (cervical fusion) Social history: . denies: smoking, alcohol abuse Family history: no significant family history (reviewed) Medications and Allergies Allergies Allergy/AdvReac Type Severity Reaction Status Date / Time No Known Allergies Allergy Unverified 04/10/14 02:49 Home Medications Medication Instructions Recorded Confirmed Last Taken Type ALBUTEROL NEB's [Proventil 0.083% 2.5 mg IH Q6HRT PRN nebu 09/14/17 10/12/17 Unknown Rx NEBS] ALPRAZolam [Xanax TAB] 0.5 mg PO Q12H PRN tablet 09/14/17 10/12/17 Unknown Rx Lisinopril [Zestril TAB] 40 mg PO QDAY tablet 09/14/17 10/12/17 Unknown Rx Lispro Insulin [Humalog] 0 unit SUB-Q Q6HR units 09/14/17 10/12/17 Unknown Rx Min Oil/Petrolatum [Artificial 1 applic OU Q4HR PRN tube 09/14/17 10/12/17 Unknown Rx Tears Ophth Oint] Ranitidine HCl [Zantac 150 MG TAB] 150 mg PO BID #60 tablet 09/14/17 10/12/17 Unknown Rx amLODIPine [Norvasc] 5 mg PO QDAY tablet 09/14/17 10/12/17 Unknown Rx Active Meds: Active Medications Acetaminophen (Tylenol) 650 mg PO Q4H PRN PRN Reason: Pain MILD(1-3)/Fever >100.5/SINGH Last Admin: 10/13/17 02:11 Dose: 650 mg Albuterol (Proventil) 2.5 mg IH Q4HRT PRN PRN Reason: Shortness Of Breath Alprazolam (Xanax) 0.5 mg PO Q12H PRN PRN Reason: Anxiety Dextrose (D50w (25gm) Syringe) 50 ml IV PRN PRN PRN Reason: Hypoglycemia Last Admin: 10/13/17 11:15 Dose: 50 ml Famotidine (Pepcid) 20 mg IV BID [facility] Last Admin: 10/13/17 10:47 Dose: 20 mg Heparin Sodium (Porcine) (Heparin) 5,000 unit SUB-Q Q8HR [facility] Last Admin: 10/13/17 13:42 Dose: 5,000 unit Dextrose/Sodium Chloride (D5/0.45ns) 1,000 mls @ 75 mls/hr IV DIRECT IAIN Last Admin: 10/12/17 19:53 Dose: 75 mls/hr Sodium Chloride (Nacl 0.45% 1000 Ml) 1,000 mls @ 500 mls/hr IV DIRECT IAIN Dextrose (D10w) 1,000 mls @ 75 mls/hr IV DIRECT IAIN Last Admin: 10/12/17 22:56 Dose: 75 mls/hr Sodium Chloride (Nacl 0.9% 1000 Ml) 1,000 mls @ 150 mls/hr IV DIRECT IAIN Stop: 10/15/17 16:39 Last Admin: 10/13/17 10:53 Dose: 150 mls/hr Norepinephrine (Levophed Drip 4 Mg/Ns 250 Ml) 4 mg in 250 mls @ 7.5 mls/hr IV TITR [facility]; Protocol Last Admin: 10/13/17 09:46 Dose: 2 mcg/min, 7.5 mls/hr Cefepime HCl 2 gm/ Sodium (Chloride) 20 mls @ 2 mls/min IV Q8HR [facility] Last Admin: 10/13/17 13:46 Dose: 2 mls/min Vancomycin HCl 1,250 mg/ (Sodium Chloride) 262.5 mls @ 166.667 mls/hr IV Q24HR [facility] Last Admin: 10/13/17 09:54 Dose: 166.667 mls/hr Levothyroxine Sodium (Synthroid) 100 mcg IV DAILY@0600 [facility] Last Admin: 10/12/17 19:37 Dose: 100 mcg Morphine Sulfate (Morphine) 1 mg IV Q4H PRN PRN Reason: Pain, Moderate (4-6) Last Admin: 10/13/17 12:02 Dose: 1 mg Ondansetron HCl (Zofran) 4 mg IV Q8H PRN PRN Reason: Nausea And Vomiting Sodium Chloride (Sodium Chloride Flush Syringe 10 Ml) 10 ml IV BID [facility] Last Admin: 10/13/17 09:47 Dose: 10 ml Sodium Chloride (Sodium Chloride Flush Syringe 10 Ml) 10 ml IV PRN PRN PRN Reason: LINE FLUSH Vancomycin HCl (Vancomycin Pharmacy To Dose) 1 each IV PKCONSULT [facility] Review of Systems ROS unobtainable: due to mental status Physical Examination - Physical Exam Narrative exam: General appearance:somnolent debilitated in mild resp distress Eyes: anicteric sclerae, moist conjunctivae; no lid-lag; PERRLA HENT: Atraumatic; oropharynx clear Neck: Trachea midline; supple, no thyromegaly or lymphadenopathy Lungs: CTA, with normal respiratory effort and no intercostal retractions CV: RRR, no murmurs Abdomen: Soft, non-tender; midline wound clear no drainage, ostomy bag with stools Extremities: amaya leg edema Skin: Normal temperature, turgor and texture; no rash, ulcers or subcutaneous nodules Psych: somnolent Neuro: somnolent Lines: old PICC ? - Constitutional Vitals: Vital Signs Temp Pulse Resp BP Pulse Ox 97.4 F L 78 10 L 97/54 100 10/13/17 12:00 10/13/17 13:51 10/13/17 13:51 10/13/17 13:51 10/13/17 13:51 Temperature -Last 24 Hours Temperature 97.4 F Temperature 97.7 F Temperature 97.5 F Temperature 97.6 F Temperature 95 F Results - Labs CBC & Chem 7: 10/12/17 13:10 10/12/17 19:34 Labs: Abnormal lab results 10/12/17 10/12/17 10/12/17 Range/Units 14:45 14:59 15:04 Sodium (137-145) mmol/L BUN (9-20) mg/dL POC Glucose 109 H (70-105) Lactic Acid 9.10 H* (0.7-2.0) mmol/L Calcium (8.4-10.2) mg/dL C-Reactive Protein (0.00-1.30) mg/dL TSH 5.130 H (0.270-4.200) mlU/mL Free T4 0.32 L (0.76-1.46) ng/dL Urine Creatinine (0.1-20.0) mg/dL 10/12/17 10/12/17 10/12/17 Range/Units 16:11 17:23 18:41 Sodium (137-145) mmol/L BUN (9-20) mg/dL POC Glucose 117 H (70-105) Lactic Acid 9.10 H* 10.20 H* (0.7-2.0) mmol/L Calcium (8.4-10.2) mg/dL C-Reactive Protein (0.00-1.30) mg/dL TSH (0.270-4.200) mlU/mL Free T4 (0.76-1.46) ng/dL Urine Creatinine (0.1-20.0) mg/dL 10/12/17 10/12/17 10/12/17 Range/Units 19:34 19:40 22:34 Sodium 149 H (137-145) mmol/L BUN 140 H (9-20) mg/dL POC Glucose 139 H 54 L (70-105) Lactic Acid (0.7-2.0) mmol/L Calcium 5.8 L* (8.4-10.2) mg/dL C-Reactive Protein (0.00-1.30) mg/dL TSH (0.270-4.200) mlU/mL Free T4 (0.76-1.46) ng/dL Urine Creatinine (0.1-20.0) mg/dL 10/12/17 10/13/17 10/13/17 Range/Units Unknown 09:33 11:02 Sodium (137-145) mmol/L BUN (9-20) mg/dL POC Glucose 44 L (70-105) Lactic Acid 9.90 H* (0.7-2.0) mmol/L Calcium (8.4-10.2) mg/dL C-Reactive Protein 1.60 H (0.00-1.30) mg/dL TSH (0.270-4.200) mlU/mL Free T4 (0.76-1.46) ng/dL Urine Creatinine (0.1-20.0) mg/dL 10/13/17 10/13/17 10/13/17 Range/Units 11:02 12:40 12:42 Sodium (137-145) mmol/L BUN (9-20) mg/dL POC Glucose 58 L 108 H (70-105) Lactic Acid (0.7-2.0) mmol/L Calcium (8.4-10.2) mg/dL C-Reactive Protein (0.00-1.30) mg/dL TSH (0.270-4.200) mlU/mL Free T4 (0.76-1.46) ng/dL Urine Creatinine 34.6 H (0.1-20.0) mg/dL Assessment and Plan Assessment: 1) Severe Sepsis with septic shock: present on admission. Etiology - GPC bacteremia +/- pneumonia 2) GPC bacteremia: ? real from PICC line infection 3) Recent Fecal peritonitis: From probably colon perforation. Likely polymicrobial. OR cx Ecoli, Klebsiella, Citrobacter and Tiff albicans - fully treated 3) Presumed pneumonia 4) Elevated LFTs 5) Presumed colon cancer with liver metastasis 6) IDANIA Plan: -remove PICC line MARI -continue cefepime and vanco -repeat blood cx in 24h -sputum cx -wound care -contact isoaltion until MRSA is r/o Rounding on Monday MD Nadeem
[2017-10-13] MEDS: D10W 1,000 ML IV SCH (14:48)
[2017-10-13] MEDS: SYNTHROID IV SCH (18:08)
--- NOTE | 2017-10-13 18:17 | Cat Scan Report ---
FINAL REPORT EXAM: CT ABDOMEN WO CON HISTORY: abd surgical wound infection TECHNIQUE: CT examination of the abdomen without IV contrast PRIORS: None. FINDINGS: Degenerative change in the regional skeleton. Rotatory lumbar curvature with lower right apex. Moderate right pleural effusion layers posteriorly. There is adjacent lung consolidation with air bronchograms which may be compressive atelectasis and/or pneumonia. Moderate left pleural effusion slightly smaller than right. Slight adjacent left lower lobe compressive atelectasis and/or pneumonia. No separately identified lung mass. The exam is limited from a paucity of natural intra-abdominal fat, and lack of contrast, to separate adjacent organs and structures. The ureters are largely obscured by adjacent soft tissues. Intestinal loops are also difficult to visualize separately. The liver is grossly enlarged with sagittal dimension of 24.8 cm. It contains multiple nonspecific low-density masses and nodules highly suspicious for metastatic disease. The differential includes multiple areas of hepatic parenchymal infection. Lesions are ill-defined without IV contrast. One of the largest lesions measures 8.8 cm in the medial segment of the left hepatic lobe. Poorly visible gallbladder appears normal. Right adrenal obscured. Normal-appearing left adrenal. Visible portion of pancreas within normal limits. No definite splenic abnormality. Normal caliber abdominal aorta with moderate calcified atherosclerotic plaque. Normal caliber IVC. Poorly visualized right kidney appears normal. No definite right hydronephrosis. A nonspecific, smoothly marginated, low density, simple appearing left renal lesion is statistically most likely a cyst. 3 mm nonobstructing left renal calculi x2. No definite left hydronephrosis. No definite evidence of gross ascites or intestinal distention. Intestine poorly evaluated without IV and oral contrast, as well as significant lack of abdominal fat. Nonspecific abdominal wall defect in the left mid abdomen may correspond with history of surgical wound. This may be an enterostomy. No abnormal fluid collection in this region to suggest abscess. IMPRESSION: Examination limited by severe paucity of intra-abdominal fat and lack of contrast. Grossly enlarged liver with multiple lesions highly suspicious for metastatic disease. Differential includes multifocal areas of hepatic parenchymal infection Abdominal wound may be surgical in the left mid abdomen. No CT evidence of abnormal fluid collection in this region to suggest abscess Moderate bilateral pleural effusions with adjacent lower lobe atelectasis and/or pneumonia Nonobstructing left renal calculi
[2017-10-14] MEDS: NACL 0.9% 1000 ML 1,000 ML IV SCH (00:31)
[2017-10-14] MEDS: D10W 1,000 ML IV SCH ×2 (00:31→23:51)
[2017-10-14] MEDS: D50W (25GM) Syringe IV PRN ×4 (02:55→21:37)
[2017-10-14] MEDS: HEPARIN SUB-Q SCH ×3 (06:13→23:11)
[2017-10-14] MEDS: MAXIPIME 2 GM in NACL 0.9% 20 ML IV SCH ×3 (06:13→23:10)
[2017-10-14] MEDS: SYNTHROID IV SCH (06:25)
[2017-10-14] MEDS: PEPCID IV SCH ×2 (10:15→23:11)
[2017-10-14] MEDS: VANCOMYCIN 1,250 MG in NACL 0.9% 250ML 250 ML IV SCH (10:16)
--- NOTE | 2017-10-14 11:35 | Progress Note ---
Assessment and Plan Assessment and plan: Septic shock. Coag-negative staph bacteremia. Blood cultures revealed coag- negative staph. Patient currently with vancomycin. Continue antibiotics per ID. s/p perforated abdominal viscus with s/p exploratory lap, sigmoid colectomy, colostomy and Burnette's pouch on 08/28. ? Myxedema coma. Continue IV Synthroid. Check thyroid panel. Hypoglycemia. Continue IV dextrose. Monitor BMP. Toxic metabolic encephalopathy. Continue to treat underlying causes. Elevated LFTs. Etiology likely secondary to ischemic hepatitis from #1. Continue to monitor LFTs. Adenocarcinoma of the colon. 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 The aggregate critical care time was [31] minutes. This time is in addition to time spent performing reported procedures but includes the following: [x] Data Review and interpretation [x] Patient assessment and monitoring of vital signs [x] Documentation [x] Medication orders and management History Interval history: 56 YO Male Longterm Resident with Dementia, HTN, DVT, PE, Debility who was admitted through the emergency department with encephalopathy,Myxedema coma, Hypernatremia, Hypoglycemic and septic shock. Patient has been weaned off pressors and currently stable. Hospitalist Physical - Constitutional Vitals: Temp Pulse Resp BP Pulse Ox 97.6 F 84 11 L 109/65 97 10/14/17 08:00 10/14/17 08:50 10/14/17 08:50 10/14/17 08:50 10/14/17 10:00 General appearance: Present: no acute distress - EENT Eyes: Present: PERRL, EOM intact ENT: hearing intact, clear oral mucosa, dentition normal - Neck Neck: Present: supple, normal ROM - Respiratory Respiratory effort: normal Respiratory: bilateral: CTA - Cardiovascular Rhythm: regular Heart Sounds: Present: S1 & S2. Absent: gallop, rub - Extremities Extremities: no ischemia, No edema, Full ROM - Abdominal General gastrointestinal: soft, non-tender, non-distended, normal bowel sounds - Integumentary Integumentary: Present: clear, warm, dry - Neurologic Neurologic: CNII-XII intact, moves all extremities Results - Labs CBC & Chem 7: 10/12/17 13:10 10/12/17 19:34 Labs: Laboratory Last Values WBC 7.3 K/mm3 (4.5-11.0) 10/12/17 13:10 RBC 3.02 M/mm3 (3.65-5.03) L 10/12/17 13:10 Hgb 10.1 gm/dl (11.8-15.2) L 10/12/17 13:10 Hct 30.7 % (35.5-45.6) L 10/12/17 13:10 MCV 101 fl (84-94) H 10/12/17 13:10 MCH 33 pg (28-32) H 10/12/17 13:10 MCHC 33 % (32-34) 10/12/17 13:10 RDW 18.6 % (13.2-15.2) H 10/12/17 13:10 Plt Count 143 K/mm3 (140-440) 10/12/17 13:10 Add Manual Diff Complete 10/12/17 13:10 Total Counted 100 10/12/17 13:10 Seg Neuts % (Manual) 83.0 % (40.0-70.0) H 10/12/17 13:10 Band Neutrophils % 2.0 % 10/12/17 13:10 Lymphocytes % (Manual) 13.0 % (13.4-35.0) L 10/12/17 13:10 Reactive Lymphs % (Man) 0 % 10/12/17 13:10 Monocytes % (Manual) 1.0 % (0.0-7.3) 10/12/17 13:10 Eosinophils % (Manual) 0 % (0.0-4.3) 10/12/17 13:10 Basophils % (Manual) 0 % (0.0-1.8) 10/12/17 13:10 Metamyelocytes % 1.0 % 10/12/17 13:10 Myelocytes % 0 % 10/12/17 13:10 Promyelocytes % 0 % 10/12/17 13:10 Blast Cells % 0 % 10/12/17 13:10 Nucleated RBC % 2.0 % (0.0-0.9) H 10/12/17 13:10 Seg Neutrophils # Man 6.1 K/mm3 (1.8-7.7) 10/12/17 13:10 Band Neutrophils # 0.1 K/mm3 10/12/17 13:10 Lymphocytes # (Manual) 0.9 K/mm3 (1.2-5.4) L 10/12/17 13:10 Abs React Lymphs (Man) 0.0 K/mm3 10/12/17 13:10 Monocytes # (Manual) 0.1 K/mm3 (0.0-0.8) 10/12/17 13:10 Eosinophils # (Manual) 0.0 K/mm3 (0.0-0.4) 10/12/17 13:10 Basophils # (Manual) 0.0 K/mm3 (0.0-0.1) 10/12/17 13:10 Metamyelocytes # 0.1 K/mm3 10/12/17 13:10 Myelocytes # 0.0 K/mm3 10/12/17 13:10 Promyelocytes # 0.0 K/mm3 10/12/17 13:10 Blast Cells # 0.0 K/mm3 10/12/17 13:10 WBC Morphology Not Reportable 10/12/17 13:10 Hypersegmented Neuts Not Reportable 10/12/17 13:10 Hyposegmented Neuts Not Reportable 10/12/17 13:10 Hypogranular Neuts Not Reportable 10/12/17 13:10 Smudge Cells Not Reportable 10/12/17 13:10 Toxic Granulation Not Reportable 10/12/17 13:10 Toxic Vacuolation Not Reportable 10/12/17 13:10 Dohle Bodies Not Reportable 10/12/17 13:10 Pelger-Huet Anomaly Not Reportable 10/12/17 13:10 Hermila Rods Not Reportable 10/12/17 13:10 Platelet Estimate Cons 10/12/17 13:10 Clumped Platelets Not Reportable 10/12/17 13:10 Plt Clumps, EDTA Not Reportable 10/12/17 13:10 Large Platelets Not Reportable 10/12/17 13:10 Giant Platelets Not Reportable 10/12/17 13:10 Platelet Satelliting Not Reportable 10/12/17 13:10 Plt Morphology Comment Not Reportable 10/12/17 13:10 RBC Morphology Not Reportable 10/12/17 13:10 Dimorphic RBCs Not Reportable 10/12/17 13:10 Polychromasia Not Reportable 10/12/17 13:10 Hypochromasia Not Reportable 10/12/17 13:10 Poikilocytosis Not Reportable 10/12/17 13:10 Anisocytosis 1+ 10/12/17 13:10 Microcytosis Not Reportable 10/12/17 13:10 Macrocytosis Not Reportable 10/12/17 13:10 Spherocytes Not Reportable 10/12/17 13:10 Pappenheimer Bodies Not Reportable 10/12/17 13:10 Sickle Cells Not Reportable 10/12/17 13:10 Target Cells Not Reportable 10/12/17 13:10 Tear Drop Cells Not Reportable 10/12/17 13:10 Ovalocytes Not Reportable 10/12/17 13:10 Helmet Cells Not Reportable 10/12/17 13:10 [place] Bodies Not Reportable 10/12/17 13:10 [place] Rings Not Reportable 10/12/17 13:10 Piyush Cells Not Reportable 10/12/17 13:10 Bite Cells Not Reportable 10/12/17 13:10 Crenated Cell Not Reportable 10/12/17 13:10 Elliptocytes Not Reportable 10/12/17 13:10 Acanthocytes (Spur) Not Reportable 10/12/17 13:10 Rouleaux Not Reportable 10/12/17 13:10 Hemoglobin C Crystals Not Reportable 10/12/17 13:10 Schistocytes Not Reportable 10/12/17 13:10 Malaria parasites Not Reportable 10/12/17 13:10 Jadon Bodies Not Reportable 10/12/17 13:10 Hem Pathologist Commnt No 10/12/17 13:10 PT 21.0 Sec. (12.2-14.9) H 10/12/17 13:10 INR 1.70 (0.87-1.13) H 10/12/17 13:10 APTT 29.2 Sec. (24.2-36.6) 10/12/17 13:10 POC ABG pH 7.366 (7.35-7.45) 10/12/17 22:56 POC ABG pCO2 40.2 (35-45) 10/12/17 22:56 POC ABG pO2 105 (80-105) 10/12/17 22:56 POC ABG HCO3 23.0 10/12/17 22:56 POC ABG Total CO2 24 10/12/17 22:56 POC ABG O2 Sat 98 10/12/17 22:56 POC ABG Base Excess -2 10/12/17 22:56 FiO2 28 % 10/12/17 22:56 Sodium 149 mmol/L (137-145) H 10/12/17 19:34 Potassium 4.7 mmol/L (3.6-5.0) 10/12/17 19:34 Chloride 98.5 mmol/L (98-107) 10/12/17 19:34 Carbon Dioxide 22 mmol/L (22-30) D 10/12/17 19:34 Anion Gap 33 mmol/L 10/12/17 19:34 BUN 140 mg/dL (9-20) H 10/12/17 19:34 Creatinine 1.3 mg/dL (0.8-1.5) 10/12/17 19:34 Estimated GFR > 60 ml/min 10/12/17 19:34 BUN/Creatinine Ratio 108 % 10/12/17 19:34 Glucose 86 mg/dL (75-100) 10/12/17 19:34 POC Glucose 73 (70-105) 10/14/17 06:15 Lactic Acid 9.90 mmol/L (0.7-2.0) H* 10/12/17 Unknown Calcium 5.8 mg/dL (8.4-10.2) L* 10/12/17 19:34 Total Bilirubin 1.90 mg/dL (0.1-1.2) H 10/12/17 13:10 AST 120 units/L (5-40) H 10/12/17 13:10 ALT 77 units/L (7-56) H 10/12/17 13:10 Alkaline Phosphatase 716 units/L (35-129) H 10/12/17 13:10 Total Creatine Kinase 261 units/L (55-170) H 10/12/17 13:10 CK-MB (CK-2) 2.0 ng/mL (0.0-4.0) 10/12/17 13:10 CK-MB (CK-2) Rel Index 0.7 (0-4) 10/12/17 13:10 Troponin T < 0.010 ng/mL (0.00-0.029) 10/12/17 13:10 C-Reactive Protein 1.60 mg/dL (0.00-1.30) H 10/13/17 11:02 NT-Pro-B Natriuret Pep 1026 pg/mL (0-900) H 10/12/17 13:10 Total Protein 4.9 g/dL (6.3-8.2) L 10/12/17 13:10 Albumin 2.2 g/dL (3.9-5) L 10/12/17 13:10 Albumin/Globulin Ratio 0.8 % 10/12/17 13:10 TSH 5.130 mlU/mL (0.270-4.200) H 10/12/17 15:04 Free T4 0.32 ng/dL (0.76-1.46) L 10/12/17 15:04 Urine Color Yellow (Yellow) 10/12/17 16:20 Urine Turbidity Clear (Clear) 10/12/17 16:20 Urine pH 5.0 (5.0-7.0) 10/12/17 16:20 Ur Specific [place] 1.013 (1.003-1.030) 10/12/17 16:20 Urine Protein <15 mg/dl mg/dL (Negative) 10/12/17 16:20 Urine Glucose (UA) Neg mg/dL (Negative) 10/12/17 16:20 Urine Ketones Neg mg/dL (Negative) 10/12/17 16:20 Urine Blood Mod (Negative) 10/12/17 16:20 Urine Nitrite Neg (Negative) 10/12/17 16:20 Urine Bilirubin Neg (Negative) 10/12/17 16:20 Urine Urobilinogen < 2.0 mg/dL (<2.0) 10/12/17 16:20 Ur Leukocyte Esterase Neg (Negative) 10/12/17 16:20 Urine WBC (Auto) < 1.0 /HPF (0.0-6.0) 10/12/17 16:20 Urine RBC (Auto) < 1.0 /HPF (0.0-6.0) 10/12/17 16:20 U Epithel Cells (Auto) < 1.0 /HPF (0-13.0) 10/12/17 16:20 Urine Mucus Few /HPF 10/12/17 16:20 Urine Creatinine 34.6 mg/dL (0.1-20.0) H 10/13/17 12:40 Urine Sodium 11 mmol/L 10/13/17 12:40
[2017-10-14] MEDS: SODIUM CHLORIDE FLUSH SYRINGE 10 ML IV SCH ×2 (14:16→23:17)
[2017-10-14 14:26] LABS: Basophils % (Auto) 0.2 % (0.0-1.8); Hematocrit 30.4 % (35.5-45.6); Lymphocytes # (Auto) 0.9 K/mm3 (1.2-5.4); Lymphocytes % (Auto) 11.6 % (13.4-35.0); Mean Corpuscular HGB Conc 33 % (32-34); Mean Corpuscular Hemoglobin 34 pg (28-32); Mean Corpuscular Volume 104 fl (84-94); Monocytes # (Auto) 0.6 K/mm3 (0.0-0.8); Monocytes % (Auto) 7.4 % (0.0-7.3); Platelet Count 104 K/mm3 (140-440); Red Blood Count 2.93 M/mm3 (3.65-5.03); Red Cell Distribution Width 19.5 % (13.2-15.2)
[2017-10-14 14:35] LABS: Hemolysis Index 2
[2017-10-14 14:42] LABS: BUN/Creatinine Ratio 106; Blood Urea Nitrogen 127 mg/dL (9-20)
[2017-10-14 14:45] LABS: Calcium 5.7 mg/dL (8.4-10.2)
[2017-10-14] MEDS ORDERED: PANCREAZE DR 10,500 UNIT FEEDTUBE PRN ×2 (15:59→19:28)
[2017-10-14] MEDS ORDERED: SODIUM BICARBONATE FEEDTUBE PRN ×2 (15:59→19:28)
[2017-10-14] MEDS ORDERED: SIMPLE SYRUP FEEDTUBE PRN ×4 (15:59→19:28)
--- NOTE | 2017-10-14 16:22 | Progress Note ---
Assessment and Plan Severe Sepsis with Shock Acute Encephalopathy Persistent Hypoglycemia Lactic Acidosis (Suspect Type B element) Severe Sepsis with septic shock and MODS Hypoxemic Respiratory Failure IDANIA on CKD Colon cancer with liver metastasis - place DHT and begin enteral nutrition at 30mls/hr - get stat ABG and address as necessary - continue D10W but increase to 100mls/hr - begin D5NS at 75mls/hr X 2 liters re: sepsis - watch closely for pulmonary edema from third spacing - continue cefepime and vancomycin - may need line holiday (await ID input) - continue aspiration precautions - continue prn bronchodilators with pulmonary hygiene per RT - continue GI prophylaxis - hold on VTE prophylaxis re: coagulopathy - follow H&H - heme-onc evaluation is appropriate - continue other care per attending / other consultants - transfer to telemetry with q4h accuchecks initially re: hypoglycemia (should improve with increase in D10W, addition of D5NS and enteral nutrition) - continue other care per attending / other consultants ...re-evaluate in am & prn ...35' Subjective Date of service: 10/14/17 Principal diagnosis: Severe Sepsis with Shock; Acute Encephalopathy; Persistent Hypoglycemia Interval history: Patient is seen today for: Severe Sepsis with Shock; Acute Encephalopathy; Persistent Hypoglycemia Seen and examined at bedside; 24hour events reviewed; nursing and respiratory care staff consulted; no adverse overnight events reported to me; BP's better; he remains hypoglycemic even on D10 drip; no N/V/F/C; feels a little better overall; still with metabolic acidosis Objective Vital Signs - 12hr 10/14/17 10/14/17 10/14/17 04:30 04:41 04:51 Temperature Pulse Rate 86 85 89 Respiratory 12 14 12 Rate Blood Pressure 102/67 102/67 102/67 O2 Sat by Pulse 99 100 99 Oximetry 10/14/17 10/14/17 10/14/17 05:00 05:11 05:21 Temperature Pulse Rate 84 85 86 Respiratory 11 L 11 L 12 Rate Blood Pressure 102/67 102/67 102/67 O2 Sat by Pulse 99 99 100 Oximetry 10/14/17 10/14/17 10/14/17 05:30 05:41 05:51 Temperature Pulse Rate 86 87 84 Respiratory 13 12 10 L Rate Blood Pressure 106/67 106/67 106/67 O2 Sat by Pulse 98 99 100 Oximetry 10/14/17 10/14/17 10/14/17 06:00 06:10 06:20 Temperature Pulse Rate 86 87 90 Respiratory 11 L 12 13 Rate Blood Pressure 106/67 100/65 O2 Sat by Pulse 99 98 99 Oximetry 10/14/17 10/14/17 10/14/17 06:30 06:40 06:50 Temperature Pulse Rate 88 87 85 Respiratory 10 L 15 11 L Rate Blood Pressure 99/62 99/62 99/62 O2 Sat by Pulse 98 98 99 Oximetry 10/14/17 10/14/17 10/14/17 07:00 07:10 07:20 Temperature Pulse Rate 86 86 84 Respiratory 12 14 14 Rate Blood Pressure 101/61 101/61 101/61 O2 Sat by Pulse 99 100 99 Oximetry 10/14/17 10/14/17 10/14/17 07:30 07:40 07:50 Temperature Pulse Rate 84 88 86 Respiratory 11 L 14 11 L Rate Blood Pressure 99/64 99/64 99/64 O2 Sat by Pulse 99 98 99 Oximetry 10/14/17 10/14/17 10/14/17 08:00 08:10 08:20 Temperature 97.6 F Pulse Rate 85 84 86 Respiratory 2 L 11 L 13 Rate Blood Pressure 101/66 101/66 101/66 O2 Sat by Pulse 99 99 98 Oximetry 10/14/17 10/14/17 10/14/17 08:30 08:40 08:50 Temperature Pulse Rate 90 87 84 Respiratory 11 L 12 11 L Rate Blood Pressure 109/65 109/65 109/65 O2 Sat by Pulse 99 98 99 Oximetry 10/14/17 10/14/17 10/14/17 09:00 09:10 09:20 Temperature Pulse Rate 84 82 84 Respiratory 12 11 L 11 L Rate Blood Pressure 106/66 106/66 106/66 O2 Sat by Pulse 99 99 98 Oximetry 10/14/17 10/14/17 10/14/17 09:30 09:40 09:50 Temperature Pulse Rate 82 82 85 Respiratory 11 L 10 L 12 Rate Blood Pressure 99/60 99/60 99/60 O2 Sat by Pulse 99 99 99 Oximetry 10/14/17 10/14/17 10/14/17 10:00 10:10 10:20 Temperature Pulse Rate 84 84 82 Respiratory 12 12 10 L Rate Blood Pressure 100/64 100/64 100/64 O2 Sat by Pulse 99 98 98 Oximetry 10/14/17 10/14/17 10/14/17 10:30 10:40 10:50 Temperature Pulse Rate 81 82 80 Respiratory 11 L 9 L 10 L Rate Blood Pressure 100/63 100/63 100/63 O2 Sat by Pulse 99 98 99 Oximetry 10/14/17 10/14/17 10/14/17 11:00 11:10 11:20 Temperature Pulse Rate 84 81 84 Respiratory 11 L 10 L 13 Rate Blood Pressure 94/62 94/62 94/62 O2 Sat by Pulse 98 100 99 Oximetry 10/14/17 10/14/17 10/14/17 11:30 11:40 11:50 Temperature Pulse Rate 82 87 82 Respiratory 11 L 12 10 L Rate Blood Pressure 101/65 101/65 101/65 O2 Sat by Pulse 97 99 99 Oximetry 10/14/17 10/14/17 10/14/17 12:00 12:10 12:20 Temperature 98.1 F Pulse Rate 81 81 81 Respiratory 11 L 11 L 11 L Rate Blood Pressure 104/68 104/68 104/68 O2 Sat by Pulse 99 99 100 Oximetry 10/14/17 10/14/17 10/14/17 12:30 12:40 12:50 Temperature Pulse Rate 86 81 87 Respiratory 13 11 L 9 L Rate Blood Pressure 105/69 105/69 105/69 O2 Sat by Pulse 100 100 99 Oximetry 10/14/17 10/14/17 10/14/17 13:00 13:10 13:20 Temperature Pulse Rate 81 92 H 84 Respiratory 10 L 15 12 Rate Blood Pressure 97/62 97/62 97/62 O2 Sat by Pulse 100 99 99 Oximetry 10/14/17 10/14/17 10/14/17 13:30 13:40 13:50 Temperature Pulse Rate 83 86 85 Respiratory 13 11 L 15 Rate Blood Pressure 104/69 97/62 97/62 O2 Sat by Pulse 99 100 100 Oximetry 10/14/17 10/14/17 14:00 16:00 Temperature 97.9 F Pulse Rate 81 Respiratory 11 L Rate Blood Pressure 104/69 O2 Sat by Pulse 100 Oximetry Constitutional: no acute distress, lethargic Eyes: non-icteric ENT: oropharynx moist, other (temporal wasting) Neck: supple, no lymphadenopathy, no JVD, other (no thyromegaly) Effort: mildly labored Ascultation: Bilateral: clear, diminished breath sounds (bases) Percussion: Right: dull, Left: not dull Cardiovascular: regular rate and rhythm, other (No R/M) Gastrointestinal: hypoactive bowel sounds, soft, non-tender, non-distended, other (no papable HSM) Integumentary: other (poor turgor) Extremities: no cyanosis, pulses normal, no ischemia or petechiae, edema (2+) Neurologic: normal mental status, non-focal exam (grossly), pupils equal and round, CN II-XII normal, other (weak) Psychiatric: depressed CBC and BMP: 10/15/17 06:00 10/15/17 06:00 ABG, PT/INR, D-dimer: ABG POC ABG pH 7.366 (7.35-7.45) 10/12/17 22:56 POC ABG pCO2 40.2 (35-45) 10/12/17 22:56 POC ABG pO2 105 (80-105) 10/12/17 22:56 POC ABG HCO3 23.0 10/12/17 22:56 POC ABG Total CO2 24 10/12/17 22:56 POC ABG O2 Sat 98 10/12/17 22:56 PT/INR, D-dimer PT 21.0 Sec. (12.2-14.9) H 10/12/17 13:10 INR 1.70 (0.87-1.13) H 10/12/17 13:10 Abnormal lab findings: Abnormal Labs 10/12/17 10/12/17 10/12/17 12:45 12:57 13:10 RBC 3.02 L Hgb 10.1 L Hct 30.7 L MCV 101 H MCH 33 H RDW 18.6 H Plt Count Lymph % (Auto) [place] % (Auto) Lymph # Seg Neutrophils % Seg Neuts % (Manual) 83.0 H Lymphocytes % (Manual) 13.0 L Nucleated RBC % 2.0 H Lymphocytes # (Manual) 0.9 L PT INR Sodium Potassium Carbon Dioxide BUN Glucose POC Glucose < 40 L 192 H Lactic Acid Calcium Phosphorus Total Bilirubin AST ALT Alkaline Phosphatase Total Creatine Kinase C-Reactive Protein NT-Pro-B Natriuret Pep Total Protein Albumin TSH Free T4 Urine Creatinine 10/12/17 10/12/1710/12/18 13:10 13:10 13:10 RBC Hgb Hct MCV MCH RDW Plt Count Lymph % (Auto) [place] % (Auto) Lymph # Seg Neutrophils % Seg Neuts % (Manual) Lymphocytes % (Manual) Nucleated RBC % Lymphocytes # (Manual) PT 21.0 H INR 1.70 H Sodium 150 H Potassium 5.6 H Carbon Dioxide 33 H BUN 143 H Glucose 173 H POC Glucose Lactic Acid Calcium 6.0 L Phosphorus Total Bilirubin 1.90 H AST 120 H ALT 77 H Alkaline Phosphatase 716 H Total Creatine Kinase 261 H C-Reactive Protein NT-Pro-B Natriuret Pep 1026 H Total Protein 4.9 L Albumin 2.2 L TSH Free T4 Urine Creatinine 10/12/17 10/12/17 10/12/17 13:36 14:22 14:45 RBC Hgb Hct MCV MCH RDW Plt Count Lymph % (Auto) [place] % (Auto) Lymph # Seg Neutrophils % Seg Neuts % (Manual) Lymphocytes % (Manual) Nucleated RBC % Lymphocytes # (Manual) PT INR Sodium Potassium Carbon Dioxide BUN Glucose POC Glucose 48 L Lactic Acid 5.90 H* 9.10 H* Calcium Phosphorus Total Bilirubin AST ALT Alkaline Phosphatase Total Creatine Kinase C-Reactive Protein NT-Pro-B Natriuret Pep Total Protein Albumin TSH Free T4 Urine Creatinine 10/12/17 10/12/17 10/12/17 14:59 15:04 16:11 RBC Hgb Hct MCV MCH RDW Plt Count Lymph % (Auto) [place] % (Auto) Lymph # Seg Neutrophils % Seg Neuts % (Manual) Lymphocytes % (Manual) Nucleated RBC % Lymphocytes # (Manual) PT INR Sodium Potassium Carbon Dioxide BUN Glucose POC Glucose 109 H Lactic Acid 9.10 H* Calcium Phosphorus Total Bilirubin AST ALT Alkaline Phosphatase Total Creatine Kinase C-Reactive Protein NT-Pro-B Natriuret Pep Total Protein Albumin TSH 5.130 H Free T4 0.32 L Urine Creatinine 10/12/17 10/12/17 10/12/17 17:23 18:41 19:34 RBC Hgb Hct MCV MCH RDW Plt Count Lymph % (Auto) [place] % (Auto) Lymph # Seg Neutrophils % Seg Neuts % (Manual) Lymphocytes % (Manual) Nucleated RBC % Lymphocytes # (Manual) PT INR Sodium 149 H Potassium Carbon Dioxide BUN 140 H Glucose POC Glucose 117 H Lactic Acid 10.20 H* Calcium 5.8 L* Phosphorus Total Bilirubin AST ALT Alkaline Phosphatase Total Creatine Kinase C-Reactive Protein NT-Pro-B Natriuret Pep Total Protein Albumin TSH Free T4 Urine Creatinine 10/12/17 10/12/17 10/12/17 19:40 22:34 Unknown RBC Hgb Hct MCV MCH RDW Plt Count Lymph % (Auto) [place] % (Auto) Lymph # Seg Neutrophils % Seg Neuts % (Manual) Lymphocytes % (Manual) Nucleated RBC % Lymphocytes # (Manual) PT INR Sodium Potassium Carbon Dioxide BUN Glucose POC Glucose 139 H 54 L Lactic Acid 9.90 H* Calcium Phosphorus Total Bilirubin AST ALT Alkaline Phosphatase Total Creatine Kinase C-Reactive Protein NT-Pro-B Natriuret Pep Total Protein Albumin TSH Free T4 Urine Creatinine 10/13/17 10/13/17 10/13/17 09:33 11:02 11:02 RBC Hgb Hct MCV MCH RDW Plt Count Lymph % (Auto) [place] % (Auto) Lymph # Seg Neutrophils % Seg Neuts % (Manual) Lymphocytes % (Manual) Nucleated RBC % Lymphocytes # (Manual) PT INR Sodium Potassium Carbon Dioxide BUN Glucose POC Glucose 44 L 58 L Lactic Acid Calcium Phosphorus Total Bilirubin AST ALT Alkaline Phosphatase Total Creatine Kinase C-Reactive Protein 1.60 H NT-Pro-B Natriuret Pep Total Protein Albumin TSH Free T4 Urine Creatinine 10/13/17 10/13/17 10/13/17 12:40 12:42 17:50 RBC Hgb Hct MCV MCH RDW Plt Count Lymph % (Auto) [place] % (Auto) Lymph # Seg Neutrophils % Seg Neuts % (Manual) Lymphocytes % (Manual) Nucleated RBC % Lymphocytes # (Manual) PT INR Sodium Potassium Carbon Dioxide BUN Glucose POC Glucose 108 H 50 L Lactic Acid Calcium Phosphorus Total Bilirubin AST ALT Alkaline Phosphatase Total Creatine Kinase C-Reactive Protein NT-Pro-B Natriuret Pep Total Protein Albumin TSH Free T4 Urine Creatinine 34.6 H 10/13/17 10/13/17 10/14/17 21:54 22:44 02:56 RBC Hgb Hct MCV MCH RDW Plt Count Lymph % (Auto) [place] % (Auto) Lymph # Seg Neutrophils % Seg Neuts % (Manual) Lymphocytes % (Manual) Nucleated RBC % Lymphocytes # (Manual) PT INR Sodium Potassium Carbon Dioxide BUN Glucose POC Glucose 69 L 125 H 66 L Lactic Acid Calcium Phosphorus Total Bilirubin AST ALT Alkaline Phosphatase Total Creatine Kinase C-Reactive Protein NT-Pro-B Natriuret Pep Total Protein Albumin TSH Free T4 Urine Creatinine 10/14/17 10/14/17 10/14/17 13:32 13:45 13:45 RBC 2.93 L Hgb 10.0 L Hct 30.4 L MCV 104 H MCH 34 H RDW 19.5 H Plt Count 104 L Lymph % (Auto) 11.6 L [place] % (Auto) 7.4 H Lymph # 0.9 L Seg Neutrophils % 80.8 H Seg Neuts % (Manual) Lymphocytes % (Manual) Nucleated RBC % Lymphocytes # (Manual) PT INR Sodium Potassium Carbon Dioxide BUN Glucose POC Glucose < 40 L Lactic Acid Calcium Phosphorus 6.10 H Total Bilirubin AST ALT Alkaline Phosphatase Total Creatine Kinase C-Reactive Protein NT-Pro-B Natriuret Pep Total Protein Albumin TSH Free T4 Urine Creatinine 10/14/17 10/14/17 10/14/17 13:45 13:45 14:43 RBC Hgb Hct MCV MCH RDW Plt Count Lymph % (Auto) [place] % (Auto) Lymph # Seg Neutrophils % Seg Neuts % (Manual) Lymphocytes % (Manual) Nucleated RBC % Lymphocytes # (Manual) PT INR Sodium Potassium Carbon Dioxide 17 L BUN 127 H Glucose POC Glucose Lactic Acid 13.30 H* 15.10 H* Calcium 5.7 L* Phosphorus Total Bilirubin AST ALT Alkaline Phosphatase Total Creatine Kinase C-Reactive Protein NT-Pro-B Natriuret Pep Total Protein Albumin TSH Free T4 Urine Creatinine 10/14/17 15:57 RBC Hgb Hct MCV MCH RDW Plt Count Lymph % (Auto) [place] % (Auto) Lymph # Seg Neutrophils % Seg Neuts % (Manual) Lymphocytes % (Manual) Nucleated RBC % Lymphocytes # (Manual) PT INR Sodium Potassium Carbon Dioxide BUN Glucose POC Glucose 54 L Lactic Acid Calcium Phosphorus Total Bilirubin AST ALT Alkaline Phosphatase Total Creatine Kinase C-Reactive Protein NT-Pro-B Natriuret Pep Total Protein Albumin TSH Free T4 Urine Creatinine Chest x-ray: image reviewed Allied health notes reviewed: nursing
--- NOTE | 2017-10-14 17:32 | Event Note ---
Date: 10/14/17 ABG with uncompensated metabolic acidosis - cancel transfer - change D5NS to D5W with 3 amps NaHCO3 / liter at 75mls/hr - repeat ABG in am
[2017-10-14] MEDS ORDERED: D5NS 1,000 ML IV SCH (18:00)
--- NOTE | 2017-10-14 18:28 | XRay Report ---
FINAL REPORT EXAM: XR ABDOMEN 1V AP HISTORY: dobbhoff placement TECHNIQUE: Portable examination of the abdomen PRIORS: CT abdomen 10/13/2013 FINDINGS: Pneumoperitoneum: None visible. Abnormal fluid levels: None visible. Visceromegaly: Enlarged liver again noted inferiorly and leftward displacing the intestine. Mass: None visible. Abnormal calcification: None. Intestinal distention: None. Intestinal obstructive pattern: None. Stool volume: Normal. Dobhoff tube distal tip projected in medial right lung base. This is suggestive of right mainstem bronchus intubation. IMPRESSION: Nonspecific bowel gas pattern without intestinal distention in the visualized abdomen Hepatomegaly with intestinal displacement Dobhoff tube distal tip projected in medial right lung base suggestive of right mainstem bronchus intubation 10/14/2017 at 6:19 p.m. EST: I discussed the findings over the phone with GORAN Pinedo.
--- NOTE | 2017-10-14 19:30 | XRay Report ---
FINAL REPORT EXAM: XR ABDOMEN 1V AP HISTORY: Dobb te placement TECHNIQUE: Single AP view of the abdomen for tube placement PRIORS: Correlated with today's earlier abdominal study. FINDINGS: The feeding tube is been advanced. Distal tip overlies distal body of the stomach. Visualized bowel gas pattern is unremarkable. No additional change identified. IMPRESSION: Advancement of the feeding tube distal end overlying the body of the stomach
[2017-10-14] MEDS: SODIUM BICARBONATE 150 MEQ in D5W 1,000 ML IV SCH (20:21)
[2017-10-14 21:26] LABS: INR 1.87 (0.87-1.13)
[2017-10-15] MEDS: D10W 1,000 ML IV SCH ×3 (03:28→21:23)
[2017-10-15] MEDS: SYNTHROID IV SCH (05:15)
[2017-10-15] MEDS: HEPARIN SUB-Q SCH ×3 (05:18→21:09)
[2017-10-15] MEDS: MAXIPIME 2 GM in NACL 0.9% 20 ML IV SCH ×2 (05:18→18:34)
--- NOTE | 2017-10-15 05:36 | XRay Report ---
FINAL REPORT EXAM: XR CHEST 1V AP HISTORY: pulmonary edema TECHNIQUE: AP portable view(s) of the chest obtained. PRIORS: 10/14/2017 abdominal radiographs. 09/08/2017 chest radiograph FINDINGS: No mediastinal shift. Cardiac silhouette is not enlarged. Chronic elevation right hemidiaphragm. No pneumothorax or focal airspace disease. Minimal blunting of the right costophrenic angle suggested. Enteric tube courses below the diaphragm and off of the inferior field of view. Left upper extremity PICC terminates in the region of the superior cavoatrial junction. Punctate 2 millimeter radiodensities project over the right chest and chest wall and are unchanged from prior. No acute skeletal finding. IMPRESSION: Satisfactory appearance of patient's support apparatus without pneumothorax. Minimal blunting of the right costophrenic angle may represent a small effusion.
[2017-10-15 06:58] LABS: Basophils % (Auto) 0.5 % (0.0-1.8); Eosinophils % (Auto) 0.1 % (0.0-4.3); Hematocrit 29.2 % (35.5-45.6); Hemoglobin 9.7 gm/dl (11.8-15.2); Lymphocytes # (Auto) 0.9 K/mm3 (1.2-5.4); Lymphocytes % (Auto) 11.1 % (13.4-35.0); Mean Corpuscular HGB Conc 33 % (32-34); Mean Corpuscular Hemoglobin 34 pg (28-32); Mean Corpuscular Volume 102 fl (84-94); Monocytes # (Auto) 0.4 K/mm3 (0.0-0.8); Monocytes % (Auto) 4.6 % (0.0-7.3); Red Blood Count 2.85 M/mm3 (3.65-5.03); Red Cell Distribution Width 19.1 % (13.2-15.2)
[2017-10-15 07:11] LABS: Hemolysis Index 5
[2017-10-15 07:37] LABS: Platelet Count 95 K/mm3 (140-440)
[2017-10-15 07:38] LABS: BUN/Creatinine Ratio 107; Blood Urea Nitrogen 118 mg/dL (9-20)
[2017-10-15 07:40] LABS: Calcium 5.6 mg/dL (8.4-10.2)
[2017-10-15] MEDS ORDERED: SIMPLE SYRUP FEEDTUBE PRN ×2 (08:27)
[2017-10-15] MEDS ORDERED: SODIUM BICARBONATE FEEDTUBE PRN (08:27)
[2017-10-15] MEDS ORDERED: PANCREAZE DR 10,500 UNIT FEEDTUBE PRN (08:27)
--- NOTE | 2017-10-15 08:40 | Consultation ---
PULMONARY CRITICAL CARE CONSULT NOTE REQUESTING PHYSICIAN: Dr. Madison. REASON FOR CONSULTATION: Sepsis syndrome. CHIEF COMPLAINT AND HISTORY OF PRESENT ILLNESS: The patient is a 56-year-old male apparently known to me from prior admission, a senior care resident, mild element of dementia who presented initially to this hospital, I believe, a few weeks ago, who was diagnosed essentially with colon cancer. Had surgical resection, was discharged to the senior care, brought into the Emergency Room yesterday secondary to lethargy and altered mental status. This had been going on for about a day. He was stuporous really when he showed up to the Emergency Room. He was found to be encephalopathic. 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 It is unclear if he did have a diagnosis of hypothyroidism; however, further evaluation in the Emergency Room ultimately determined the patient to be septic with hypotension and a lactic acidemia with the lactic acid level of 9.1. Resuscitative efforts in the Emergency Room were unsuccessful, although most of the efforts were focused on correction of his low thyroid levels. When I stopped by to see him, the patient was a little more alert, but definitely best described as being somnolent. He denied any acute chest pain. He could not remember when last, he had any meals. He did have retention sutures to the abdominal incision that were leaking pus around the coronaries. He had denied any nausea, vomiting, or overt aspiration. He really could not give me much of the history in terms of fevers or chills. There is really is as much of the history of presentation as I have. I should mention, he was described as a never smoker in prior admissions. PAST MEDICAL HISTORY: Significant for a history of colon adenocarcinoma status post recent resection, history of a deep venous thrombosis, history of hypertension, history of pulmonary embolism, history of dementia. PAST SURGICAL HISTORY: He has had the recent resection of the adenocarcinoma of the colon. He has had a cervical fusion surgery in the past. MEDICATIONS: That he was on at the time I stopped by to see him were reviewed. Pertinent medications included the following: He was on albuterol 2.5 mg nebulized q. 4 hours p.r.n. shortness of breath. He was on cefepime 2 g IV q. 8 hours. He was on Pepcid 20 mg IV b.i.d. He was on heparin 5000 units subcutaneous q. 8 hours, Levoxyl 100 mcg IV daily. He was on Zofran 4 mg IV q. 8 hours p.r.n. nausea and vomiting and vancomycin he had received a 1.25 g dose. ALLERGIES: No known drug allergies. DIET: Emaciated gentle man even since I have last seen him a couple of months ago. He has probably lost 20 pounds or thereabout. FAMILY AND SOCIAL HISTORY: longterm resident at this point. Denied history of alcohol, tobacco, or illicit drug use or abuse. He is . Family history otherwise noncontributory. REVIEW OF SYSTEMS: Unobtainable secondary to patient's medical and mental condition since he has been in the hospital in the intensive care unit. No gross hematochezia or melena, no gross hematuria, no hematemesis, no hemoptysis, no seizures. Review of systems otherwise unobtainable or as in body of history above. PHYSICAL EXAMINATION: VITAL SIGNS: At presentation in the emergency room, he was hypothermic, temperature 94.3 degrees Fahrenheit with a pulse of 57, respiratory rate of 10 and blood pressure initially 45/24. At the time that I stopped by to see the patient, he remained hypotensive. His blood pressure systolic was about 74 when I first saw him with a MAP of about 43. GENERAL: Emaciated looking chronically ill, middle-aged male, looks older than his stated age, normocephalic with temporal wasting, atraumatic. Otherwise, talking to me in very soft sentences and looking very weak. HEAD, EYES, EARS, NOSE AND THROAT: He was anicteric. There was no conjunctival erythema. Oropharynx was dry. There was no jugular venous distention, no thyromegaly Grossly, there were no palpable lymph nodes in the supraclavicular or submandibular lymph node chains. LUNGS: Auscultation of both lung conner was significant diminished bibasilar air entry. Occasional inspiratory rales, no wheezing. HEART: Heart sounds 1 and 2 are heard at the time of my evaluation. It was regular rate and rhythm. He had a soft systolic murmur, no rubs. ABDOMEN: Soft. Bowel sounds are positive, but diminished. He had retention sutures to the mid abdominal incision line and had some pus draining in the lower retention sutures. No palpable hepatosplenomegaly. It was mildly tender to touch. EXTREMITIES: Without overt digital clubbing or cyanosis. He did have bilateral 1+ pitting pedal edema. NEUROLOGIC: Pupils were equal, round about 3-4 mm, sluggishly reactive to light. Extraocular muscle movements were intact. He had spontaneous movements to all 4 extremities, but was weak. Power was about 3/5 in the lower extremities. The skin was of poor turgor otherwise, and he did have the cellulitis around the abdominal incision site. LABORATORY DATA: From my review are as follows: White cell count at presentation 7300 with a hemoglobin of 10.1, hematocrit of 30.7, platelet count of 143. INR was 1.70. Serum sodium was 150, potassium 5.6, chloride 102, bicarb 33, BUN 143, creatinine 1.3, glucose 173. Lactic acid level was 9.1, total bilirubin was 1.9. AST was up at 120, ALT 77. Troponin within normal limits. BNP was elevated at 1026. TSH was slightly elevated at 5.13, free T4 low at 0.32. Urinalysis showed negative for leukocyte esterase and nitrites. He was really bland otherwise. Arterial blood gas had shown a pH of 7.37, pCO2 of 40, pO2 of 105 that was on 2 liters nasal cannula. Blood cultures have been sent to the lab and were growing gram-positive cocci in 3 of 4 bottles that were drawn that had just been called. They were also growing gram-negative rods. Radiographic studies have been reviewed. A chest x-ray was done at admission and essentially it showed small lung volumes, likely right pleural effusion, no gross pneumothorax, no cardiomegaly. He may well also be a right lower lobe partial atelectasis. He had a CT of the abdomen that was done. It showed a grossly enlarged liver, multiple lesions suspicious for metastatic disease. No CT evidence of intra-abdominal abscess and moderate bilateral pleural effusions with nonobstructive left renal calculi. ASSESSMENT AND PLAN: 1. Severe sepsis syndrome. 2. Altered mental status and acute encephalopathy. 3. Cellulitis around the abdominal surgical insertion incision. 4. Septicemia with gram-negative rods growing in the blood and gram-positive cocci in clusters. 5. History of venous thromboembolic phenomenon. 6. History of dementia. 7. History of hypertension. 8. Acute kidney injury. 9. Anemia. 10. Hypernatremia. 11. Dehydration. 12. Hyperkalemia. 13. Coagulopathy with an INR of 1.70. 14. Lactic acidemia. 15. Hyperbilirubinemia. 16. Severe protein-calorie malnutrition. PLAN: 1. He has appropriately been started on empiric antibiotic therapy. Infectious disease consultation has been placed. We will defer to them for antibiotics. He has not been adequately resuscitated from a sepsis standpoint. A liter of bolus of normal saline was given. Levophed has been started to keep mean arterial pressures greater than or equal to about 65 mmHg during volume resuscitation. We will continue to run Levophed at 150 mL per hour thereafter. We will continue to follow his BUN and creatinine levels. Lactic acid level will also be trended. I will get a CRP level to better evaluate the true severity of his illness considering the absence of the leukocytosis. Supplemental oxygen will be continued to keep sats greater than or equal to about 90%. Surgical evaluation has been requested and I will defer to them in terms of management. Thankfully, the CT scan does not suggest he will need intervention surgically. Again CRP level has been ordered. Repeat serum potassium is now within normal limits of 4.7. I will reduce the Levoxyl dose. I do not feel we are dealing with a myxedema situation over here rather sepsis with altered mental status. I will reduce the IV Levoxyl to 50 mcg daily. He will be placed on GI and DVT prophylaxis. Flu and pneumonia vaccination will be addressed per protocol. For the time we will be taking to discuss hopefully with the patient if his mental status improves, but otherwise with his with regards to end of life issues. The prognosis here appears to be for long time. Nephrology consultation has been placed. Urine electrolytes have been sent. Thank you very much for the consult Dr. Madison. I should mention the patient has been hypoglycemic. We will continue him on a D10 drip. I will increase it from 75 to 100 mL an hour. This is because he continues to be hypoglycemic and certainly this is related to his likely metastatic liver disease and liver dysfunction. At this point, I have spent about 35-40 minutes of critical care time without overlap and excluding any procedural time that may be necessary. I should mention central venous access will be placed. He is critically ill at high risk for further deterioration including . JOB# [id number] XU/TREVOR
--- NOTE | 2017-10-15 10:22 | Progress Note ---
Assessment and Plan Assessment and plan: Septic shock with MODS. Coag-negative staph bacteremia. Blood cultures revealed coag-negative staph. Patient currently with vancomycin. Continue antibiotics per ID. Acute hypoxemic respiratory failure. Patient currently on BiPAP. As you likely secondary to #1. Pulmonary following. s/p perforated abdominal viscus with s/p exploratory lap, sigmoid colectomy, colostomy and Burnette's pouch on 08/28. ? Myxedema coma. Continue Synthroid. Check thyroid panel. Hypoglycemia. Continue IV dextrose. Monitor BMP. Toxic metabolic encephalopathy. Continue to treat underlying causes. Elevated LFTs. Etiology likely secondary to ischemic hepatitis from #1. Continue to monitor LFTs. Adenocarcinoma of the colon with liver metastasis. Patient with moderately differentiated adenocarcinoma of the sigmoid colon with invasion into the muscularis propria Elevated BUN. Etiology may be secondary to GI. Check Hemoccult stool The high probability of a clinically significant, sudden or life threatening deterioration of the [hemodynamic, immunologic and endocrine] system(s) required my full and direct attention, intervention and personal management. The aggregate critical care time was [31] minutes. 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 Patient has been weaned off pressors but requiring BiPAP. Hospitalist Physical - Constitutional Vitals: Temp Pulse Resp BP Pulse Ox 97.5 F L 84 13 93/61 100 10/15/17 08:00 10/15/17 09:44 10/15/17 09:44 10/15/17 09:44 10/15/17 09:44 General appearance: Present: no acute distress - EENT Eyes: Present: PERRL, EOM intact ENT: hearing intact, clear oral mucosa, dentition normal - Neck Neck: Present: supple, normal ROM - Respiratory Respiratory effort: normal Respiratory: bilateral: CTA - Cardiovascular Rhythm: regular Heart Sounds: Present: S1 & S2. Absent: gallop, rub - Extremities Extremities: no ischemia, No edema, Full ROM - Abdominal General gastrointestinal: soft, non-tender, non-distended, normal bowel sounds - Integumentary Integumentary: Present: clear, warm, dry - Neurologic Neurologic: CNII-XII intact, moves all extremities Results - Labs CBC & Chem 7: 10/15/17 06:00 10/15/17 06:00 Labs: Laboratory Last Values WBC 8.3 K/mm3 (4.5-11.0) 10/15/17 06:00 RBC 2.85 M/mm3 (3.65-5.03) L 10/15/17 06:00 Hgb 9.7 gm/dl (11.8-15.2) L 10/15/17 06:00 Hct 29.2 % (35.5-45.6) L 10/15/17 06:00 MCV 102 fl (84-94) H 10/15/17 06:00 MCH 34 pg (28-32) H 10/15/17 06:00 MCHC 33 % (32-34) 10/15/17 06:00 RDW 19.1 % (13.2-15.2) H 10/15/17 06:00 Plt Count 95 K/mm3 (140-440) L 10/15/17 06:00 Lymph % (Auto) 11.1 % (13.4-35.0) L 10/15/17 06:00 [place] % (Auto) 4.6 % (0.0-7.3) 10/15/17 06:00 Eos % (Auto) 0.1 % (0.0-4.3) 10/15/17 06:00 Baso % (Auto) 0.5 % (0.0-1.8) 10/15/17 06:00 Lymph # 0.9 K/mm3 (1.2-5.4) L 10/15/17 06:00 [place] # 0.4 K/mm3 (0.0-0.8) 10/15/17 06:00 Eos # 0.0 K/mm3 (0.0-0.4) 10/15/17 06:00 Baso # 0.0 K/mm3 (0.0-0.1) 10/15/17 06:00 Add Manual Diff Complete 10/12/17 13:10 Total Counted 100 10/12/17 13:10 Seg Neutrophils % 83.7 % (40.0-70.0) H 10/15/17 06:00 Seg Neuts % (Manual) 83.0 % (40.0-70.0) H 10/12/17 13:10 Band Neutrophils % 2.0 % 10/12/17 13:10 Lymphocytes % (Manual) 13.0 % (13.4-35.0) L 10/12/17 13:10 Reactive Lymphs % (Man) 0 % 10/12/17 13:10 Monocytes % (Manual) 1.0 % (0.0-7.3) 10/12/17 13:10 Eosinophils % (Manual) 0 % (0.0-4.3) 10/12/17 13:10 Basophils % (Manual) 0 % (0.0-1.8) 10/12/17 13:10 Metamyelocytes % 1.0 % 10/12/17 13:10 Myelocytes % 0 % 10/12/17 13:10 Promyelocytes % 0 % 10/12/17 13:10 Blast Cells % 0 % 10/12/17 13:10 Nucleated RBC % 2.0 % (0.0-0.9) H 10/12/17 13:10 Seg Neutrophils # 7.0 K/mm3 (1.8-7.7) 10/15/17 06:00 Seg Neutrophils # Man 6.1 K/mm3 (1.8-7.7) 10/12/17 13:10 Band Neutrophils # 0.1 K/mm3 10/12/17 13:10 Lymphocytes # (Manual) 0.9 K/mm3 (1.2-5.4) L 10/12/17 13:10 Abs React Lymphs (Man) 0.0 K/mm3 10/12/17 13:10 Monocytes # (Manual) 0.1 K/mm3 (0.0-0.8) 10/12/17 13:10 Eosinophils # (Manual) 0.0 K/mm3 (0.0-0.4) 10/12/17 13:10 Basophils # (Manual) 0.0 K/mm3 (0.0-0.1) 10/12/17 13:10 Metamyelocytes # 0.1 K/mm3 10/12/17 13:10 Myelocytes # 0.0 K/mm3 10/12/17 13:10 Promyelocytes # 0.0 K/mm3 10/12/17 13:10 Blast Cells # 0.0 K/mm3 10/12/17 13:10 WBC Morphology Not Reportable 10/12/17 13:10 Hypersegmented Neuts Not Reportable 10/12/17 13:10 Hyposegmented Neuts Not Reportable 10/12/17 13:10 Hypogranular Neuts Not Reportable 10/12/17 13:10 Smudge Cells Not Reportable 10/12/17 13:10 Toxic Granulation Not Reportable 10/12/17 13:10 Toxic Vacuolation Not Reportable 10/12/17 13:10 Dohle Bodies Not Reportable 10/12/17 13:10 Pelger-Huet Anomaly Not Reportable 10/12/17 13:10 Hermila Rods Not Reportable 10/12/17 13:10 Platelet Estimate Cons 10/12/17 13:10 Clumped Platelets Not Reportable 10/12/17 13:10 Plt Clumps, EDTA Not Reportable 10/12/17 13:10 Large Platelets Not Reportable 10/12/17 13:10 Giant Platelets Not Reportable 10/12/17 13:10 Platelet Satelliting Not Reportable 10/12/17 13:10 Plt Morphology Comment Not Reportable 10/12/17 13:10 RBC Morphology Not Reportable 10/12/17 13:10 Dimorphic RBCs Not Reportable 10/12/17 13:10 Polychromasia Not Reportable 10/12/17 13:10 Hypochromasia Not Reportable 10/12/17 13:10 Poikilocytosis Not Reportable 10/12/17 13:10 Anisocytosis 1+ 10/12/17 13:10 Microcytosis Not Reportable 10/12/17 13:10 Macrocytosis Not Reportable 10/12/17 13:10 Spherocytes Not Reportable 10/12/17 13:10 Pappenheimer Bodies Not Reportable 10/12/17 13:10 Sickle Cells Not Reportable 10/12/17 13:10 Target Cells Not Reportable 10/12/17 13:10 Tear Drop Cells Not Reportable 10/12/17 13:10 Ovalocytes Not Reportable 10/12/17 13:10 Helmet Cells Not Reportable 10/12/17 13:10 [place] Bodies Not Reportable 10/12/17 13:10 Neola Rings Not Reportable 10/12/17 13:10 [place] Cells Not Reportable 10/12/17 13:10 Bite Cells Not Reportable 10/12/17 13:10 Crenated Cell Not Reportable 10/12/17 13:10 Elliptocytes Not Reportable 10/12/17 13:10 Acanthocytes (Spur) Not Reportable 10/12/17 13:10 Rouleaux Not Reportable 10/12/17 13:10 Hemoglobin C Crystals Not Reportable 10/12/17 13:10 Schistocytes Not Reportable 10/12/17 13:10 Malaria parasites Not Reportable 10/12/17 13:10 Jadon Bodies Not Reportable 10/12/17 13:10 Hem Pathologist Commnt No 10/12/17 13:10 PT 22.7 Sec. (12.2-14.9) H 10/14/17 21:00 INR 1.87 (0.87-1.13) H 10/14/17 21:00 APTT 29.2 Sec. (24.2-36.6) 10/12/17 13:10 POC ABG pH 7.245 (7.35-7.45) L 10/14/17 17:31 POC ABG pCO2 32.8 (35-45) L 10/14/17 17:31 POC ABG pO2 102 (80-105) 10/14/17 17:31 POC ABG HCO3 14.2 10/14/17 17:31 POC ABG Total CO2 15 10/14/17 17:31 POC ABG O2 Sat 97 10/14/17 17:31 POC ABG Base Excess -13 10/14/17 17:31 FiO2 28 % 10/14/17 17:31 Sodium 144 mmol/L (137-145) 10/15/17 06:00 Potassium 4.1 mmol/L (3.6-5.0) 10/15/17 06:00 Chloride 91.0 mmol/L (98-107) L 10/15/17 06:00 Carbon Dioxide 22 mmol/L (22-30) 10/15/17 06:00 Anion Gap 35 mmol/L 10/15/17 06:00 BUN 118 mg/dL (9-20) H 10/15/17 06:00 Creatinine 1.1 mg/dL (0.8-1.5) 10/15/17 06:00 Estimated GFR > 60 ml/min 10/15/17 06:00 BUN/Creatinine Ratio 107 % 10/15/17 06:00 Glucose 319 mg/dL (75-100) H 10/15/17 06:00 POC Glucose 119 (70-105) H 10/15/17 09:52 Lactic Acid 14.40 mmol/L (0.7-2.0) H* 10/15/17 03:50 Calcium 5.6 mg/dL (8.4-10.2) L* 10/15/17 06:00 Phosphorus 6.10 mg/dL (2.5-4.5) H 10/14/17 13:45 Magnesium 2.10 mg/dL (1.7-2.3) 10/14/17 13:45 Total Bilirubin 1.90 mg/dL (0.1-1.2) H 10/12/17 13:10 AST 120 units/L (5-40) H 10/12/17 13:10 ALT 77 units/L (7-56) H 10/12/17 13:10 Alkaline Phosphatase 716 units/L (35-129) H 10/12/17 13:10 Total Creatine Kinase 261 units/L (55-170) H 10/12/17 13:10 CK-MB (CK-2) 2.0 ng/mL (0.0-4.0) 10/12/17 13:10 CK-MB (CK-2) Rel Index 0.7 (0-4) 10/12/17 13:10 Troponin T < 0.010 ng/mL (0.00-0.029) 10/12/17 13:10 C-Reactive Protein 1.60 mg/dL (0.00-1.30) H 10/13/17 11:02 NT-Pro-B Natriuret Pep 1026 pg/mL (0-900) H 10/12/17 13:10 Total Protein 4.9 g/dL (6.3-8.2) L 10/12/17 13:10 Albumin 2.2 g/dL (3.9-5) L 10/12/17 13:10 Albumin/Globulin Ratio 0.8 % 10/12/17 13:10 TSH 5.130 mlU/mL (0.270-4.200) H 10/12/17 15:04 Free T4 0.32 ng/dL (0.76-1.46) L 10/12/17 15:04 Urine Color Yellow (Yellow) 10/12/17 16:20 Urine Turbidity Clear (Clear) 10/12/17 16:20 Urine pH 5.0 (5.0-7.0) 10/12/17 16:20 Ur Specific [place] 1.013 (1.003-1.030) 10/12/17 16:20 Urine Protein <15 mg/dl mg/dL (Negative) 10/12/17 16:20 Urine Glucose (UA) Neg mg/dL (Negative) 10/12/17 16:20 Urine Ketones Neg mg/dL (Negative) 10/12/17 16:20 Urine Blood Mod (Negative) 10/12/17 16:20 Urine Nitrite Neg (Negative) 10/12/17 16:20 Urine Bilirubin Neg (Negative) 10/12/17 16:20 Urine Urobilinogen < 2.0 mg/dL (<2.0) 10/12/17 16:20 Ur Leukocyte Esterase Neg (Negative) 10/12/17 16:20 Urine WBC (Auto) < 1.0 /HPF (0.0-6.0) 10/12/17 16:20 Urine RBC (Auto) < 1.0 /HPF (0.0-6.0) 10/12/17 16:20 U Epithel Cells (Auto) < 1.0 /HPF (0-13.0) 10/12/17 16:20 Urine Mucus Few /HPF 10/12/17 16:20 Urine Creatinine 34.6 mg/dL (0.1-20.0) H 10/13/17 12:40 Urine Sodium 11 mmol/L 10/13/17 12:40
[2017-10-15] MEDS: SODIUM BICARBONATE 150 MEQ in D5W 1,000 ML IV SCH (11:00)
[2017-10-15] MEDS: PEPCID IV SCH ×2 (11:01→21:09)
[2017-10-15] MEDS: SODIUM CHLORIDE FLUSH SYRINGE 10 ML IV SCH ×2 (11:02→21:10)
--- NOTE | 2017-10-15 11:58 | Consultation ---
CONSULTING PHYSICIAN: Dr. Madison. REASON FOR CONSULT: Persistent hypoglycemia, sepsis syndrome. CHIEF COMPLAINT AND HISTORY OF PRESENT ILLNESS: The patient is a 56-year-old -[place] male known to me from a recent admission in August at which time he was diagnosed with adenocarcinoma of the colon. He had surgical intervention. He was apparently discharged to a [facility]. He comes back from the [facility] secondary to lethargy, altered mental status on the day presentation he displayed increasing encephalopathy. He was unable to be aroused. In the ER, he was found to be stuporous. 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 He also had persistent hypoglycemia. Attempts to correct his hypoglycemia were not successful and the patient became hypotensive, hence ICU admission was requested. He also had a significant lactic acidosis. When I stopped by to see him, he was still pretty hypotensive. He did appear confused. He was somnolent with the best way to describe him. He denied any abdominal pain at that time. With regards to tobacco use/abuse history, I believe he has always been described as a never smoker. It is really is as much of the history of presentation as I have. 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 PAST SURGICAL HISTORY: Status post bowel surgery, colon resection. Also, history of cervical fusion surgery. MEDICATIONS: He was on at the time I stopped by to see him were reviewed, pertinent medications include the following: Albuterol 2.5 mg nebulized q. 4 hours p.r.n. shortness of breath, cefepime 2 grams IV q.8 hours. He was also on Levoxyl 100 mcg IV daily. Morphine 1 mg IV q.4 hours p.r.n. moderate pain, Zofran 4 mg IV q.8 hours p.r.n. nausea and vomiting. He was on a D10 drip going at I believe 75 mL an hour. He also received vancomycin 1.25 grams IV. ALLERGIES: No known drug allergies. DIET: Cachectic looking gentleman, has lost at least 10-15 pounds since I have last seen him about a month ago. He is n.p.o. at the time I saw him. FAMILY AND SOCIAL HISTORY: [facility] resident now. He denied alcohol, tobacco, or illicit drug use or abuse prior. FAMILY HISTORY: He is . Otherwise, no significant family history that is contributory at this time. REVIEW OF SYSTEMS: Difficult to obtain secondary to the patient's medical and mental condition. Since he had been in the ICU, no gross hematochezia or melena. No gross hematuria, no hematemesis, no hemoptysis. He denied chest pain. He denied abdominal pain. He denies polydipsia, but really could not respond to a lot of my questions. Review of systems is otherwise unobtainable or as in the body of history above. PHYSICAL EXAMINATION: VITAL SIGNS: At presentation in the emergency room; he was hypothermic, temperature 94.3 degrees Fahrenheit, pulse of 57, respiratory rate of 10, blood pressure was 45/24 at a point and O2 sats 96% when I stopped by to see him. His blood pressure was systolic of 70. O2 sats were 98% on 2 liters nasal cannula. GENERAL: He is an elderly looking, but middle-aged -[place] male, normocephalic. He does have temporal wasting, looks chronically ill, talking to me in very soft and low sentences, in mild respiratory distress, but again somnolent. HEAD, EYES, EARS, NOSE AND THROAT: He had mild conjunctival icterus, no conjunctival erythema. Oropharynx was dry. It was Mallampati #2. No jugular venous distention. No palpable lymph nodes in the supraclavicular or submandibular lymph node chains. No thyromegaly. LUNGS: Auscultation of both lung conner significant for diminished right lower lobe air entry. No wheezing. HEART: Heart sounds 1 and 2 are heard. They were regular in rate and rhythm at the time of my evaluation. Soft systolic murmur. No rubs. ABDOMEN: Full, but soft. Bowel sounds were hyperactive. It did not appear tender. He had a colostomy bag with nonbloody stools in the bag. Otherwise, I believe a clean incision line. EXTREMITIES: Showed 2+ bipedal pitting edema, no significant digital clubbing or cyanosis. Dorsalis pedis pulses were palpable. NEUROLOGIC: The pupils were equal, round, about 4 mm, reactive to light. Extraocular muscles and movements appeared intact. He also moved all 4 extremities spontaneously, but was weak. Power was about 3/5 in the lower extremities. He had a PICC line in the left upper extremity that I believe he came into the hospital with. The skin was of poor turgor. It was dry. No cellulitis, no rash. LABORATORY DATA: From my review are as follows: Admission white cell count was 7300, hemoglobin 10.1, hematocrit 30.7, platelet count 143. INR was 1.70. Arterial blood gas at presentation showed a pH of 7.37, pCO2 of 40, pO2 of 105. This is on 2 liters nasal cannula. Serum sodium was 150, potassium 5.6, chloride 102, bicarbonate 33, BUN of 143, creatinine was 1.3, glucose was 173. Lactic acid level was 9.1, total bilirubin 1.9, AST 120, ALT 77. BNP 1026, albumin was 2.2. TSH was 5.13, free T4 was low at 0.32. Urinalysis was negative for leukocyte esterase as well as nitrites. MICROBIOLOGY STUDIES: Blood cultures are growing gram-positive cocci in clusters that had not yet been identified. Urine culture was pending. Radiographic studies have been reviewed. Chest x-ray essentially shows right lower lobe atelectasis, small right lower lobe effusion. It is rotated to the left. No gross pneumothorax and element of hypoventilation. No gross bony fractures. ASSESSMENT: 1. Severe sepsis with shock. 2. Acute encephalopathy. This may be secondary to shock. 3. Anemia with microcytosis and microcytic anemia. 4. Coagulopathy with serum INR of 1.70. 5. Liver dysfunction with elevated serum transaminases and hypoglycemia, presumably secondary to multiple liver mets as evidenced on the CT of the abdomen and pelvis. 6. Hypernatremia. 7. Hyperkalemia. 8. Acute kidney injury. 9. Hyperglycemia. 10. Lactic acidosis. 11. History of venous thromboembolic phenomena. 12. History of colon cancer. 13. Elevated serum TSH. 14. Severe protein-calorie malnutrition. 15. Adult failure to thrive. 16. History of dementia. PLAN: He will be volume resuscitated aggressively from a sepsis protocol. He is going to receive 1 liter bolus of normal saline and then we will continue IV resuscitation. I will get serial lactic acid levels. His CRP level will also be ordered to better understand the true infectious potential of this presentation. In light of normal white cell count at presentation. We will continue the D10W drip; however, he is still going hypoglycemic. We will increase it to 100 per hour while running the normal saline trach concurrently. I will reduce the Synthroid dose from 100 to 50 mcg per day. I doubt that is the real cause of his mental status. We are certainly not dealing with myxedema over here. He will be started on TPN. He was started on GI and DVT prophylaxis. Hypoglycemia protocol will be initiated. We will keep an eye on his serum sodium, but for now volume resuscitation aggressively is more important with isotonic fluids. I will be transitioning to hypotonic fluids once his blood pressure is better. Flu and pneumonia vaccination will be addressed per protocol. We will continue broad spectrum antibiotic therapy and deescalate based on results of clinical and microbiologic data as well as per Infectious Disease recommendations. Thank you very much for the consult. We will follow along and make further recommendations as picture progresses/becomes clearer. Of note, we will try and locate family and discuss end of life issues with them. The prognosis here is guarded. At this time, I have spent about 35-40 minutes of critical care time without overlap and excluding any procedural time that may be necessary. I should mention if he grows Gram-positive cocci in his blood if the ID does staff which he likely will be, we may need to give him a line holiday and pulled PICC line and perhaps send the tip of the PICC line for cultures. JOB# [id number] XU/TREVOR
[2017-10-15] MEDS ORDERED: D10W 1,000 ML IV SCH (12:00)
--- NOTE | 2017-10-15 14:40 | Progress Note ---
Assessment and Plan Assessment: 1) Severe Sepsis with septic shock: better Etiology - GPC bacteremia +/- pneumonia 2) MSSE bacteremia: ? real from PICC line infection 3) Recent Fecal peritonitis: From probably colon perforation. Likely polymicrobial. OR cx Ecoli, Klebsiella, Citrobacter and Tiff albicans - fully treated 3) Presumed pneumonia 4) Elevated LFTs 5) Presumed colon cancer with liver metastasis 6) IDANIA Plan: -remove PICC line - has not been removed -stop cefepime and vanco -start cefazolin -repeat blood today -sputum cx -wound care -stop contact isolation MD Nadeem Subjective Date of service: 10/15/17 Principal diagnosis: Severe Sepsis with Shock; Acute Encephalopathy; Persistent Hypoglycemia Interval history: Feels better. No fever or hypothermia, off pressors. Microbiology: Blood cultures: 08/29 neg 10/12 MSSE 2 of 4 bottles Respiratory cultures: 08/28 neg OR cultures: 08/28 Ecoli, Klebsiella, Citrobacter and Tiff albicans Current Antimicrobials: cefepime 10/13 vanco 10/13 Previous Antimicrobials: Vancomycin 08/28-09/06 Zosyn 08/28-09/06 Fluconazole 08/28-09/10 levaquin 09/06-09/10 Objective - Exam Narrative Exam: General appearance:somnolent debilitated in mild resp distress Eyes: anicteric sclerae, moist conjunctivae; no lid-lag; PERRLA HENT: Atraumatic; oropharynx clear Neck: Trachea midline; supple, no thyromegaly or lymphadenopathy Lungs: CTA, with normal respiratory effort and no intercostal retractions CV: RRR, no murmurs Abdomen: Soft, non-tender; midline wound clear no drainage, ostomy bag with stools Extremities: amaya leg edema Skin: Normal temperature, turgor and texture; no rash, ulcers or subcutaneous nodules Psych: somnolent Neuro: somnolent Lines: old PICC ? - Constitutional Vitals: Vital Signs Temp Pulse Resp BP Pulse Ox 98.1 F 81 13 95/65 99 10/15/17 12:00 10/15/17 11:00 10/15/17 11:00 10/15/17 11:00 10/15/17 11:00 Temperature -Last 24 Hours Temperature 98.1 F Temperature 97.5 F Temperature 97.6 F Temperature 97.9 F Temperature 97.0 F Temperature 97.9 F - Labs CBC & Chem 7: 10/15/17 06:00 10/15/17 06:00 Labs: Abnormal lab results 10/12/17 10/14/17 10/14/17 Range/Units 13:36 13:45 13:45 RBC (3.65-5.03) M/mm3 Hgb (11.8-15.2) gm/dl Hct (35.5-45.6) % MCV (84-94) fl MCH (28-32) pg RDW (13.2-15.2) % Plt Count (140-440) K/mm3 Lymph % (Auto) (13.4-35.0) % Lymph # (1.2-5.4) K/mm3 Seg Neutrophils % (40.0-70.0) % PT (12.2-14.9) Sec. INR (0.87-1.13) POC ABG pH (7.35-7.45) POC ABG pCO2 (35-45) POC ABG pO2 (80-105) Chloride (98-107) mmol/L BUN 127 H (9-20) mg/dL Glucose (75-100) mg/dL POC Glucose (70-105) Lactic Acid 5.90 H* (0.7-2.0) mmol/L Calcium 5.7 L* (8.4-10.2) mg/dL Phosphorus 6.10 H (2.5-4.5) mg/dL 10/14/17 10/14/17 10/14/17 Range/Units 13:59 14:43 15:57 RBC (3.65-5.03) M/mm3 Hgb (11.8-15.2) gm/dl Hct (35.5-45.6) % MCV (84-94) fl MCH (28-32) pg RDW (13.2-15.2) % Plt Count (140-440) K/mm3 Lymph % (Auto) (13.4-35.0) % Lymph # (1.2-5.4) K/mm3 Seg Neutrophils % (40.0-70.0) % PT (12.2-14.9) Sec. INR (0.87-1.13) POC ABG pH (7.35-7.45) POC ABG pCO2 (35-45) POC ABG pO2 (80-105) Chloride (98-107) mmol/L BUN (9-20) mg/dL Glucose (75-100) mg/dL POC Glucose 144 H 54 L (70-105) Lactic Acid 15.10 H* (0.7-2.0) mmol/L Calcium (8.4-10.2) mg/dL Phosphorus (2.5-4.5) mg/dL 10/14/17 10/14/17 10/14/17 Range/Units 17:12 17:31 21:00 RBC (3.65-5.03) M/mm3 Hgb (11.8-15.2) gm/dl Hct (35.5-45.6) % MCV (84-94) fl MCH (28-32) pg RDW (13.2-15.2) % Plt Count (140-440) K/mm3 Lymph % (Auto) (13.4-35.0) % Lymph # (1.2-5.4) K/mm3 Seg Neutrophils % (40.0-70.0) % PT 22.7 H (12.2-14.9) Sec. INR 1.87 H (0.87-1.13) POC ABG pH 7.245 L (7.35-7.45) POC ABG pCO2 32.8 L (35-45) POC ABG pO2 (80-105) Chloride (98-107) mmol/L BUN (9-20) mg/dL Glucose (75-100) mg/dL POC Glucose (70-105) Lactic Acid 16.80 H* (0.7-2.0) mmol/L Calcium (8.4-10.2) mg/dL Phosphorus (2.5-4.5) mg/dL 10/14/17 10/14/17 10/14/17 Range/Units 21:00 21:33 21:35 RBC (3.65-5.03) M/mm3 Hgb (11.8-15.2) gm/dl Hct (35.5-45.6) % MCV (84-94) fl MCH (28-32) pg RDW (13.2-15.2) % Plt Count (140-440) K/mm3 Lymph % (Auto) (13.4-35.0) % Lymph # (1.2-5.4) K/mm3 Seg Neutrophils % (40.0-70.0) % PT (12.2-14.9) Sec. INR (0.87-1.13) POC ABG pH (7.35-7.45) POC ABG pCO2 (35-45) POC ABG pO2 (80-105) Chloride (98-107) mmol/L BUN (9-20) mg/dL Glucose 35 L* (75-100) mg/dL POC Glucose < 40 L (70-105) Lactic Acid 14.90 H* (0.7-2.0) mmol/L Calcium (8.4-10.2) mg/dL Phosphorus (2.5-4.5) mg/dL 10/14/17 10/15/17 10/15/17 Range/Units 23:00 03:50 06:00 RBC 2.85 L (3.65-5.03) M/mm3 Hgb 9.7 L (11.8-15.2) gm/dl Hct 29.2 L (35.5-45.6) % MCV 102 H (84-94) fl MCH 34 H (28-32) pg RDW 19.1 H (13.2-15.2) % Plt Count 95 L (140-440) K/mm3 Lymph % (Auto) 11.1 L (13.4-35.0) % Lymph # 0.9 L (1.2-5.4) K/mm3 Seg Neutrophils % 83.7 H (40.0-70.0) % PT (12.2-14.9) Sec. INR (0.87-1.13) POC ABG pH (7.35-7.45) POC ABG pCO2 (35-45) POC ABG pO2 (80-105) Chloride (98-107) mmol/L BUN (9-20) mg/dL Glucose (75-100) mg/dL POC Glucose (70-105) Lactic Acid 14.10 H* 14.40 H* (0.7-2.0) mmol/L Calcium (8.4-10.2) mg/dL Phosphorus (2.5-4.5) mg/dL 10/15/17 10/15/17 10/15/17 Range/Units 06:00 09:52 10:00 RBC (3.65-5.03) M/mm3 Hgb (11.8-15.2) gm/dl Hct (35.5-45.6) % MCV (84-94) fl MCH (28-32) pg RDW (13.2-15.2) % Plt Count (140-440) K/mm3 Lymph % (Auto) (13.4-35.0) % Lymph # (1.2-5.4) K/mm3 Seg Neutrophils % (40.0-70.0) % PT (12.2-14.9) Sec. INR (0.87-1.13) POC ABG pH 7.210 L (7.35-7.45) POC ABG pCO2 28.9 L (35-45) POC ABG pO2 115 H (80-105) Chloride 91.0 L (98-107) mmol/L BUN 118 H (9-20) mg/dL Glucose 319 H (75-100) mg/dL POC Glucose 119 H (70-105) Lactic Acid (0.7-2.0) mmol/L Calcium 5.6 L* (8.4-10.2) mg/dL Phosphorus (2.5-4.5) mg/dL 10/15/17 Range/Units 14:37 RBC (3.65-5.03) M/mm3 Hgb (11.8-15.2) gm/dl Hct (35.5-45.6) % MCV (84-94) fl MCH (28-32) pg RDW (13.2-15.2) % Plt Count (140-440) K/mm3 Lymph % (Auto) (13.4-35.0) % Lymph # (1.2-5.4) K/mm3 Seg Neutrophils % (40.0-70.0) % PT (12.2-14.9) Sec. INR (0.87-1.13) POC ABG pH (7.35-7.45) POC ABG pCO2 (35-45) POC ABG pO2 (80-105) Chloride (98-107) mmol/L BUN (9-20) mg/dL Glucose (75-100) mg/dL POC Glucose 53 L (70-105) Lactic Acid (0.7-2.0) mmol/L Calcium (8.4-10.2) mg/dL Phosphorus (2.5-4.5) mg/dL
[2017-10-15] MEDS ORDERED: ceFAZolin 2 GM in NACL 0.9% 100 ML IV SCH (15:00)
--- NOTE | 2017-10-15 16:03 | Progress Note ---
Assessment and Plan Severe Sepsis with Shock Acute Encephalopathy Persistent Hypoglycemia Lactic Acidosis (Suspect Type B element) Severe Sepsis with septic shock and MODS Hypoxemic Respiratory Failure IDANIA on CKD Colon cancer with liver metastasis - continue enteral nutrition at 30mls/hr - continue bicarbonate drip - repeat ABG in am - continue D10W at 125mls/hr (sugars dropped when reduced to 75mls/hr) - watch closely for pulmonary edema from third spacing - schedule oral bicarbonate - get nephrology consultation - continue cefepime and vancomycin - continue anti-infectives per ID recs - continue aspiration precautions - continue prn bronchodilators with pulmonary hygiene per RT - continue GI prophylaxis - hold on VTE prophylaxis re: coagulopathy - follow H&H - heme-onc evaluation is appropriate - continue to observe closely in ICU re: persistent hypoglycemia and sepsis - continue other care per attending / other consultants ... I have discussed his CODE status and he wants to be a DNR; I have also spoken to his and she is on her way to discuss end of life issues with him at which point his code status will be finalized. She did state that he has thought about this for a while and is not surprised by his decision. ...re-evaluate in am & prn ...40' CCT Subjective Date of service: 10/15/17 Principal diagnosis: Severe Sepsis with Shock; Acute Encephalopathy; Persistent Hypoglycemia Interval history: Patient is seen today for: Severe Sepsis with Shock; Acute Encephalopathy; Persistent Hypoglycemia Seen and examined at bedside; 24hour events reviewed; nursing and respiratory care staff consulted; no adverse overnight events reported to me; BP's remains better; tolerating qhs BIPAP; still with significant metabolic acidosis; no N/V/ F/C; tolerating tube feeds well so far. Objective Vital Signs - 12hr 10/15/17 10/15/17 10/15/17 04:00 04:16 04:30 Temperature 97.6 F Pulse Rate 80 85 79 Pulse Rate [ From Monitor] Respiratory 12 12 12 Rate Respiratory Rate [Denies] Blood Pressure 106/66 106/66 95/65 O2 Sat by Pulse 99 Oximetry 10/15/17 10/15/17 10/15/17 04:46 05:00 05:16 Temperature Pulse Rate 86 78 78 Pulse Rate [ 82 From Monitor] Respiratory 11 L 13 13 Rate Respiratory Rate [Denies] Blood Pressure 95/65 89/64 89/64 O2 Sat by Pulse 98 98 99 Oximetry 10/15/17 10/15/17 10/15/17 05:30 05:46 06:00 Temperature Pulse Rate 81 81 79 Pulse Rate [ From Monitor] Respiratory 14 12 12 Rate Respiratory Rate [Denies] Blood Pressure 96/66 96/66 96/66 O2 Sat by Pulse 99 100 92 Oximetry 10/15/17 10/15/17 10/15/17 06:16 06:30 06:46 Temperature Pulse Rate 80 83 86 Pulse Rate [ From Monitor] Respiratory 14 13 12 Rate Respiratory Rate [Denies] Blood Pressure 96/66 102/68 102/68 O2 Sat by Pulse 99 81 L 85 Oximetry 10/15/17 10/15/17 10/15/17 07:00 07:16 07:30 Temperature Pulse Rate 84 86 82 Pulse Rate [ From Monitor] Respiratory 14 14 14 Rate Respiratory Rate [Denies] Blood Pressure 102/73 102/73 110/69 O2 Sat by Pulse 97 97 66 L Oximetry 10/15/17 10/15/17 10/15/17 07:46 08:00 08:16 Temperature 97.5 F L Pulse Rate 83 81 83 Pulse Rate [ From Monitor] Respiratory 17 13 14 Rate Respiratory Rate [Denies] Blood Pressure 110/69 103/66 103/66 O2 Sat by Pulse 99 90 91 Oximetry 10/15/17 10/15/17 10/15/17 08:30 08:46 09:00 Temperature Pulse Rate 79 80 80 Pulse Rate [ 81 From Monitor] Respiratory 14 14 11 L Rate Respiratory Rate [Denies] Blood Pressure 111/70 111/70 99/63 O2 Sat by Pulse 100 98 Oximetry 10/15/17 10/15/17 10/15/17 09:16 09:30 09:44 Temperature Pulse Rate 81 85 84 Pulse Rate [ From Monitor] Respiratory 14 12 13 Rate Respiratory Rate [Denies] Blood Pressure 99/63 99/63 93/61 O2 Sat by Pulse 96 100 Oximetry 10/15/17 10/15/17 10/15/17 09:46 10:00 10:16 Temperature Pulse Rate 84 81 84 Pulse Rate [ From Monitor] Respiratory 16 14 14 Rate Respiratory 12 Rate [Denies] Blood Pressure 93/61 102/63 102/63 O2 Sat by Pulse 94 97 96 Oximetry 10/15/17 10/15/17 10/15/17 10:30 10:46 11:00 Temperature Pulse Rate 80 81 81 Pulse Rate [ From Monitor] Respiratory 13 12 13 Rate Respiratory Rate [Denies] Blood Pressure 91/61 91/61 95/65 O2 Sat by Pulse 98 99 99 Oximetry 10/15/17 12:00 Temperature 98.1 F Pulse Rate Pulse Rate [ From Monitor] Respiratory Rate Respiratory Rate [Denies] Blood Pressure O2 Sat by Pulse Oximetry Constitutional: no acute distress, lethargic Eyes: non-icteric ENT: oropharynx moist, other (temporal wasting) Neck: supple, no lymphadenopathy, no JVD, other (no thyromegaly) Effort: mildly labored Ascultation: Bilateral: clear, diminished breath sounds (bases) Percussion: Right: dull, Left: not dull Cardiovascular: regular rate and rhythm, other (No R/M) Gastrointestinal: hypoactive bowel sounds, soft, non-tender, non-distended, other (no papable HSM) Integumentary: other (poor turgor) Extremities: no cyanosis, pulses normal, no ischemia or petechiae, edema (2+) Neurologic: normal mental status, non-focal exam (grossly), pupils equal and round, CN II-XII normal, other (weak) Psychiatric: depressed CBC and BMP: 10/15/17 06:00 10/15/17 06:00 ABG, PT/INR, D-dimer: ABG POC ABG pH 7.210 (7.35-7.45) L 10/15/17 10:00 POC ABG pCO2 28.9 (35-45) L 10/15/17 10:00 POC ABG pO2 115 (80-105) H 10/15/17 10:00 POC ABG HCO3 11.6 10/15/17 10:00 POC ABG Total CO2 12 10/15/17 10:00 POC ABG O2 Sat 98 10/15/17 10:00 PT/INR, D-dimer PT 22.7 Sec. (12.2-14.9) H 10/14/17 21:00 INR 1.87 (0.87-1.13) H 10/14/17 21:00 Abnormal lab findings: Abnormal Labs 10/12/17 10/12/17 10/12/17 12:45 12:57 13:10 RBC 3.02 L Hgb 10.1 L Hct 30.7 L MCV 101 H MCH 33 H RDW 18.6 H Plt Count Lymph % (Auto) [place] % (Auto) Lymph # Seg Neutrophils % Seg Neuts % (Manual) 83.0 H Lymphocytes % (Manual) 13.0 L Nucleated RBC % 2.0 H Lymphocytes # (Manual) 0.9 L PT INR POC ABG pH POC ABG pCO2 POC ABG pO2 Sodium Potassium Chloride Carbon Dioxide BUN Glucose POC Glucose < 40 L 192 H Lactic Acid Calcium Phosphorus Total Bilirubin AST ALT Alkaline Phosphatase Total Creatine Kinase C-Reactive Protein NT-Pro-B Natriuret Pep Total Protein Albumin TSH Free T4 Urine Creatinine 10/12/17 10/12/17 10/12/17 13:10 13:10 13:10 RBC Hgb Hct MCV MCH RDW Plt Count Lymph % (Auto) [place] % (Auto) Lymph # Seg Neutrophils % Seg Neuts % (Manual) Lymphocytes % (Manual) Nucleated RBC % Lymphocytes # (Manual) PT 21.0 H INR 1.70 H POC ABG pH POC ABG pCO2 POC ABG pO2 Sodium 150 H Potassium 5.6 H Chloride Carbon Dioxide 33 H BUN 143 H Glucose 173 H POC Glucose Lactic Acid Calcium 6.0 L Phosphorus Total Bilirubin 1.90 H AST 120 H ALT 77 H Alkaline Phosphatase 716 H Total Creatine Kinase 261 H C-Reactive Protein NT-Pro-B Natriuret Pep 1026 H Total Protein 4.9 L Albumin 2.2 L TSH Free T4 Urine Creatinine 10/12/17 10/12/17 10/12/17 13:36 14:22 14:45 RBC Hgb Hct MCV MCH RDW Plt Count Lymph % (Auto) [place] % (Auto) Lymph # Seg Neutrophils % Seg Neuts % (Manual) Lymphocytes % (Manual) Nucleated RBC % Lymphocytes # (Manual) PT INR POC ABG pH POC ABG pCO2 POC ABG pO2 Sodium Potassium Chloride Carbon Dioxide BUN Glucose POC Glucose 48 L Lactic Acid 5.90 H* 9.10 H* Calcium Phosphorus Total Bilirubin AST ALT Alkaline Phosphatase Total Creatine Kinase C-Reactive Protein NT-Pro-B Natriuret Pep Total Protein Albumin TSH Free T4 Urine Creatinine 10/12/17 10/12/17 10/12/17 14:59 15:04 16:11 RBC Hgb Hct MCV MCH RDW Plt Count Lymph % (Auto) [place] % (Auto) Lymph # Seg Neutrophils % Seg Neuts % (Manual) Lymphocytes % (Manual) Nucleated RBC % Lymphocytes # (Manual) PT INR POC ABG pH POC ABG pCO2 POC ABG pO2 Sodium Potassium Chloride Carbon Dioxide BUN Glucose POC Glucose 109 H Lactic Acid 9.10 H* Calcium Phosphorus Total Bilirubin AST ALT Alkaline Phosphatase Total Creatine Kinase C-Reactive Protein NT-Pro-B Natriuret Pep Total Protein Albumin TSH 5.130 H Free T4 0.32 L Urine Creatinine 10/12/17 10/12/17 10/12/17 17:23 18:41 19:34 RBC Hgb Hct MCV MCH RDW Plt Count Lymph % (Auto) [place] % (Auto) Lymph # Seg Neutrophils % Seg Neuts % (Manual) Lymphocytes % (Manual) Nucleated RBC % Lymphocytes # (Manual) PT INR POC ABG pH POC ABG pCO2 POC ABG pO2 Sodium 149 H Potassium Chloride Carbon Dioxide BUN 140 H Glucose POC Glucose 117 H Lactic Acid 10.20 H* Calcium 5.8 L* Phosphorus Total Bilirubin AST ALT Alkaline Phosphatase Total Creatine Kinase C-Reactive Protein NT-Pro-B Natriuret Pep Total Protein Albumin TSH Free T4 Urine Creatinine 10/12/17 10/12/17 10/12/17 19:40 22:34 Unknown RBC Hgb Hct MCV MCH RDW Plt Count Lymph % (Auto) [place] % (Auto) Lymph # Seg Neutrophils % Seg Neuts % (Manual) Lymphocytes % (Manual) Nucleated RBC % Lymphocytes # (Manual) PT INR POC ABG pH POC ABG pCO2 POC ABG pO2 Sodium Potassium Chloride Carbon Dioxide BUN Glucose POC Glucose 139 H 54 L Lactic Acid 9.90 H* Calcium Phosphorus Total Bilirubin AST ALT Alkaline Phosphatase Total Creatine Kinase C-Reactive Protein NT-Pro-B Natriuret Pep Total Protein Albumin TSH Free T4 Urine Creatinine 10/13/17 10/13/17 10/13/17 09:33 11:02 11:02 RBC Hgb Hct MCV MCH RDW Plt Count Lymph % (Auto) [place] % (Auto) Lymph # Seg Neutrophils % Seg Neuts % (Manual) Lymphocytes % (Manual) Nucleated RBC % Lymphocytes # (Manual) PT INR POC ABG pH POC ABG pCO2 POC ABG pO2 Sodium Potassium Chloride Carbon Dioxide BUN Glucose POC Glucose 44 L 58 L Lactic Acid Calcium Phosphorus Total Bilirubin AST ALT Alkaline Phosphatase Total Creatine Kinase C-Reactive Protein 1.60 H NT-Pro-B Natriuret Pep Total Protein Albumin TSH Free T4 Urine Creatinine 10/13/17 10/13/17 10/13/17 12:40 12:42 17:50 RBC Hgb Hct MCV MCH RDW Plt Count Lymph % (Auto) [place] % (Auto) Lymph # Seg Neutrophils % Seg Neuts % (Manual) Lymphocytes % (Manual) Nucleated RBC % Lymphocytes # (Manual) PT INR POC ABG pH POC ABG pCO2 POC ABG pO2 Sodium Potassium Chloride Carbon Dioxide BUN Glucose POC Glucose 108 H 50 L Lactic Acid Calcium Phosphorus Total Bilirubin AST ALT Alkaline Phosphatase Total Creatine Kinase C-Reactive Protein NT-Pro-B Natriuret Pep Total Protein Albumin TSH Free T4 Urine Creatinine 34.6 H 10/13/17 10/13/17 10/14/17 21:54 22:44 02:56 RBC Hgb Hct MCV MCH RDW Plt Count Lymph % (Auto) [place] % (Auto) Lymph # Seg Neutrophils % Seg Neuts % (Manual) Lymphocytes % (Manual) Nucleated RBC % Lymphocytes # (Manual) PT INR POC ABG pH POC ABG pCO2 POC ABG pO2 Sodium Potassium Chloride Carbon Dioxide BUN Glucose POC Glucose 69 L 125 H 66 L Lactic Acid Calcium Phosphorus Total Bilirubin AST ALT Alkaline Phosphatase Total Creatine Kinase C-Reactive Protein NT-Pro-B Natriuret Pep Total Protein Albumin TSH Free T4 Urine Creatinine 10/14/17 10/14/17 10/14/17 13:32 13:45 13:45 RBC 2.93 L Hgb 10.0 L Hct 30.4 L MCV 104 H MCH 34 H RDW 19.5 H Plt Count 104 L Lymph % (Auto) 11.6 L [place] % (Auto) 7.4 H Lymph # 0.9 L Seg Neutrophils % 80.8 H Seg Neuts % (Manual) Lymphocytes % (Manual) Nucleated RBC % Lymphocytes # (Manual) PT INR POC ABG pH POC ABG pCO2 POC ABG pO2 Sodium Potassium Chloride Carbon Dioxide BUN Glucose POC Glucose < 40 L Lactic Acid Calcium Phosphorus 6.10 H Total Bilirubin AST ALT Alkaline Phosphatase Total Creatine Kinase C-Reactive Protein NT-Pro-B Natriuret Pep Total Protein Albumin TSH Free T4 Urine Creatinine 10/14/17 10/14/17 10/14/17 13:45 13:45 13:59 RBC Hgb Hct MCV MCH RDW Plt Count Lymph % (Auto) [place] % (Auto) Lymph # Seg Neutrophils % Seg Neuts % (Manual) Lymphocytes % (Manual) Nucleated RBC % Lymphocytes # (Manual) PT INR POC ABG pH POC ABG pCO2 POC ABG pO2 Sodium Potassium Chloride Carbon Dioxide 17 L BUN 127 H Glucose POC Glucose 144 H Lactic Acid 13.30 H* Calcium 5.7 L* Phosphorus Total Bilirubin AST ALT Alkaline Phosphatase Total Creatine Kinase C-Reactive Protein NT-Pro-B Natriuret Pep Total Protein Albumin TSH Free T4 Urine Creatinine 10/14/17 10/14/17 10/14/17 14:43 15:57 17:12 RBC Hgb Hct MCV MCH RDW Plt Count Lymph % (Auto) [place] % (Auto) Lymph # Seg Neutrophils % Seg Neuts % (Manual) Lymphocytes % (Manual) Nucleated RBC % Lymphocytes # (Manual) PT INR POC ABG pH POC ABG pCO2 POC ABG pO2 Sodium Potassium Chloride Carbon Dioxide BUN Glucose POC Glucose 54 L Lactic Acid 15.10 H* 16.80 H* Calcium Phosphorus Total Bilirubin AST ALT Alkaline Phosphatase Total Creatine Kinase C-Reactive Protein NT-Pro-B Natriuret Pep Total Protein Albumin TSH Free T4 Urine Creatinine 10/14/17 10/14/17 10/14/17 17:31 21:00 21:00 RBC Hgb Hct MCV MCH RDW Plt Count Lymph % (Auto) [place] % (Auto) Lymph # Seg Neutrophils % Seg Neuts % (Manual) Lymphocytes % (Manual) Nucleated RBC % Lymphocytes # (Manual) PT 22.7 H INR 1.87 H POC ABG pH 7.245 L POC ABG pCO2 32.8 L POC ABG pO2 Sodium Potassium Chloride Carbon Dioxide BUN Glucose POC Glucose Lactic Acid 14.90 H* Calcium Phosphorus Total Bilirubin AST ALT Alkaline Phosphatase Total Creatine Kinase C-Reactive Protein NT-Pro-B Natriuret Pep Total Protein Albumin TSH Free T4 Urine Creatinine 10/14/17 10/14/17 10/14/17 21:33 21:35 23:00 RBC Hgb Hct MCV MCH RDW Plt Count Lymph % (Auto) [place] % (Auto) Lymph # Seg Neutrophils % Seg Neuts % (Manual) Lymphocytes % (Manual) Nucleated RBC % Lymphocytes # (Manual) PT INR POC ABG pH POC ABG pCO2 POC ABG pO2 Sodium Potassium Chloride Carbon Dioxide BUN Glucose 35 L* POC Glucose < 40 L Lactic Acid 14.10 H* Calcium Phosphorus Total Bilirubin AST ALT Alkaline Phosphatase Total Creatine Kinase C-Reactive Protein NT-Pro-B Natriuret Pep Total Protein Albumin TSH Free T4 Urine Creatinine 10/15/17 10/15/17 10/15/17 03:50 06:00 06:00 RBC 2.85 L Hgb 9.7 L Hct 29.2 L MCV 102 H MCH 34 H RDW 19.1 H Plt Count 95 L Lymph % (Auto) 11.1 L [place] % (Auto) Lymph # 0.9 L Seg Neutrophils % 83.7 H Seg Neuts % (Manual) Lymphocytes % (Manual) Nucleated RBC % Lymphocytes # (Manual) PT INR POC ABG pH POC ABG pCO2 POC ABG pO2 Sodium Potassium Chloride 91.0 L Carbon Dioxide BUN 118 H Glucose 319 H POC Glucose Lactic Acid 14.40 H* Calcium 5.6 L* Phosphorus Total Bilirubin AST ALT Alkaline Phosphatase Total Creatine Kinase C-Reactive Protein NT-Pro-B Natriuret Pep Total Protein Albumin TSH Free T4 Urine Creatinine 10/15/17 10/15/17 10/15/17 09:52 10:00 14:37 RBC Hgb Hct MCV MCH RDW Plt Count Lymph % (Auto) [place] % (Auto) Lymph # Seg Neutrophils % Seg Neuts % (Manual) Lymphocytes % (Manual) Nucleated RBC % Lymphocytes # (Manual) PT INR POC ABG pH 7.210 L POC ABG pCO2 28.9 L POC ABG pO2 115 H Sodium Potassium Chloride Carbon Dioxide BUN Glucose POC Glucose 119 H 53 L Lactic Acid Calcium Phosphorus Total Bilirubin AST ALT Alkaline Phosphatase Total Creatine Kinase C-Reactive Protein NT-Pro-B Natriuret Pep Total Protein Albumin TSH Free T4 Urine Creatinine Allied health notes reviewed: nursing
[2017-10-15] MEDS: ceFAZolin 2 GM in NACL 0.9% 20 ML IV SCH (16:30)
[2017-10-15] MEDS: VANCOMYCIN 1,250 MG in NACL 0.9% 250ML 250 ML IV SCH (18:40)
[2017-10-16] MEDS: ceFAZolin 2 GM in NACL 0.9% 20 ML IV SCH ×2 (00:28→08:04)
[2017-10-16] MEDS: SODIUM BICARBONATE 150 MEQ in D5W 1,000 ML IV SCH ×2 (02:28→13:56)
[2017-10-16] MEDS: D10W 1,000 ML IV SCH ×2 (04:58→13:25)
[2017-10-16 05:02] LABS: Hematocrit 32.5 % (35.5-45.6); Hemoglobin 9.8 gm/dl (11.8-15.2); Mean Corpuscular HGB Conc 30 % (32-34); Mean Corpuscular Hemoglobin 33 pg (28-32); Mean Corpuscular Volume 108 fl (84-94); Red Blood Count 3.01 M/mm3 (3.65-5.03)
[2017-10-16 05:44] LABS: Hemolysis Index 5
[2017-10-16 05:56] LABS: BUN/Creatinine Ratio 100; Blood Urea Nitrogen 120 mg/dL (9-20); Calcium 6.8 mg/dL (8.4-10.2)
[2017-10-16 06:25] LABS: Band Neutrophils # (Manual) 0.3 K/mm3; Basophils % (Manual) 0 % (0.0-1.8); Crenated RBC 1+; Eosinophils % (Manual) 0 % (0.0-4.3); Myelocytes # (Manual) 0.1 K/mm3; Platelet Count 110 K/mm3 (140-440); Platelet Estimate Consistent w Auto; Total Cells Counted 100
[2017-10-16] MEDS: HEPARIN SUB-Q SCH ×3 (06:29→21:56)
[2017-10-16] MEDS: SYNTHROID IV SCH (06:29)
[2017-10-16] MEDS: SODIUM CHLORIDE FLUSH SYRINGE 10 ML IV PRN ×3 (06:30→12:30)
--- NOTE | 2017-10-16 08:05 | Progress Note ---
Assessment and Plan - Septic shock with MODS. Coag-negative staph bacteremia. Blood cultures revealed coag-negative staph. Patient currently with vancomycin. Continue antibiotics per ID. - Metabolic acidosis: On Bicarbonate drip. Increased same. Trend lab - Acute hypoxemic respiratory failure. Patient currently on BiPAP. As you likely secondary to #1. Pulmonary following. s/p perforated abdominal viscus with s/p exploratory lap, sigmoid colectomy, colostomy and Burnette's pouch on 08/28. - ? Myxedema coma. Continue Synthroid. Check thyroid panel. - Hypoglycemia. Continue IV dextrose. Monitor BMP. Toxic metabolic encephalopathy. Continue to treat underlying causes. - Elevated LFTs. Etiology likely secondary to ischemic hepatitis from #1. Continue to monitor LFTs. - Adenocarcinoma of the colon with liver metastasis. Patient with moderately differentiated adenocarcinoma of the sigmoid colon with invasion into the muscularis propria - Elevated BUN. Etiology may be secondary to GI. Check Hemoccult stool. Stool for hemocult. The high probability of a clinically significant, sudden or life threatening deterioration of the [hemodynamic, immunologic and endocrine] system(s) required my full and direct attention, intervention and personal management. The aggregate critical care time was [31] minutes. This time is in addition to time spent performing reported procedures but includes the following: Subjective Date of service: 10/16/17 Principal diagnosis: Severe Sepsis with Shock; Acute Encephalopathy; Persistent Hypoglycemia Interval history: Pt seen and examined. Still lethergic. Objective - Constitutional Vitals: Vital Signs - 12hr 10/15/17 10/15/17 10/15/17 20:30 21:00 21:30 Temperature Pulse Rate 93 H 82 86 Pulse Rate [ 82 From Monitor] Respiratory 14 14 13 Rate Blood Pressure 110/67 106/65 108/69 O2 Sat by Pulse 98 97 97 Oximetry 10/15/17 10/15/17 10/15/17 22:00 22:30 22:52 Temperature Pulse Rate 81 85 82 Pulse Rate [ From Monitor] Respiratory 14 16 13 Rate Blood Pressure 104/67 113/68 113/68 O2 Sat by Pulse 94 98 99 Oximetry 10/15/17 10/15/17 10/16/17 23:00 23:30 00:00 Temperature 98.1 F Pulse Rate 84 83 80 Pulse Rate [ From Monitor] Respiratory 15 12 15 Rate Blood Pressure 110/69 108/66 116/74 O2 Sat by Pulse 96 100 Oximetry 10/16/17 10/16/17 10/16/17 00:01 00:30 01:00 Temperature Pulse Rate 81 84 81 Pulse Rate [ 86 From Monitor] Respiratory 17 14 14 Rate Blood Pressure 108/66 111/50 111/50 O2 Sat by Pulse 100 100 100 Oximetry 10/16/17 10/16/17 10/16/17 01:30 02:00 02:30 Temperature Pulse Rate 83 81 85 Pulse Rate [ From Monitor] Respiratory 16 14 16 Rate Blood Pressure 100/60 101/60 100/68 O2 Sat by Pulse 99 100 100 Oximetry 10/16/17 10/16/17 10/16/17 03:00 03:30 04:00 Temperature 97.9 F Pulse Rate 81 79 80 Pulse Rate [ 86 From Monitor] Respiratory 13 12 14 Rate Blood Pressure 106/68 100/62 109/66 O2 Sat by Pulse 97 100 Oximetry 10/16/17 10/16/17 10/16/17 04:30 05:00 05:30 Temperature Pulse Rate 81 85 78 Pulse Rate [ From Monitor] Respiratory 16 15 14 Rate Blood Pressure 103/67 103/63 105/66 O2 Sat by Pulse 86 100 99 Oximetry 10/16/17 10/16/17 06:00 07:31 Temperature Pulse Rate 86 Pulse Rate [ From Monitor] Respiratory 15 Rate Blood Pressure 109/68 O2 Sat by Pulse 100 100 Oximetry General appearance: Present: no acute distress, well-nourished - EENT Eyes: PERRL, EOM intact Ears: bilateral: normal - Neck Neck: supple, normal ROM - Respiratory Respiratory effort: normal Respiratory: bilateral: CTA - Cardiovascular Rhythm: regular Heart Sounds: Present: S1 & S2. Absent: gallop, rub Extremities: pulses intact, No edema, normal color, Full ROM - Gastrointestinal General gastrointestinal: Present: soft, non-tender, non-distended, normal bowel sounds - Integumentary Integumentary: clear, warm, dry - Musculoskeletal Musculoskeletal: 1, strength equal bilaterally - Neurologic Neurologic: moves all extremities - Psychiatric Psychiatric: memory intact, appropriate mood/affect, intact judgment & insight - Labs CBC & Chem 7: 10/16/17 04:30 10/16/17 04:30 Labs: Abnormal lab results 10/12/17 10/15/17 10/15/17 Range/Units 13:36 09:52 10:00 RBC (3.65-5.03) M/mm3 Hgb (11.8-15.2) gm/dl Hct (35.5-45.6) % MCV (84-94) fl MCH (28-32) pg MCHC (32-34) % RDW (13.2-15.2) % Plt Count (140-440) K/mm3 Seg Neuts % (Manual) (40.0-70.0) % Lymphocytes % (Manual) (13.4-35.0) % Nucleated RBC % (0.0-0.9) % Seg Neutrophils # Man (1.8-7.7) K/mm3 Lymphocytes # (Manual) (1.2-5.4) K/mm3 POC ABG pH 7.210 L (7.35-7.45) POC ABG pCO2 28.9 L (35-45) POC ABG pO2 115 H (80-105) Chloride (98-107) mmol/L Carbon Dioxide (22-30) mmol/L BUN (9-20) mg/dL Glucose (75-100) mg/dL POC Glucose 119 H (70-105) Lactic Acid 5.90 H* (0.7-2.0) mmol/L Calcium (8.4-10.2) mg/dL 10/15/17 10/15/17 10/16/17 Range/Units 14:37 21:56 02:04 RBC (3.65-5.03) M/mm3 Hgb (11.8-15.2) gm/dl Hct (35.5-45.6) % MCV (84-94) fl MCH (28-32) pg MCHC (32-34) % RDW (13.2-15.2) % Plt Count (140-440) K/mm3 Seg Neuts % (Manual) (40.0-70.0) % Lymphocytes % (Manual) (13.4-35.0) % Nucleated RBC % (0.0-0.9) % Seg Neutrophils # Man (1.8-7.7) K/mm3 Lymphocytes # (Manual) (1.2-5.4) K/mm3 POC ABG pH (7.35-7.45) POC ABG pCO2 (35-45) POC ABG pO2 (80-105) Chloride (98-107) mmol/L Carbon Dioxide (22-30) mmol/L BUN (9-20) mg/dL Glucose (75-100) mg/dL POC Glucose 53 L 111 H 138 H (70-105) Lactic Acid (0.7-2.0) mmol/L Calcium (8.4-10.2) mg/dL 10/16/17 10/16/17 10/16/17 Range/Units 04:30 04:30 05:36 RBC 3.01 L (3.65-5.03) M/mm3 Hgb 9.8 L (11.8-15.2) gm/dl Hct 32.5 L (35.5-45.6) % MCV 108 H (84-94) fl MCH 33 H (28-32) pg MCHC 30 L (32-34) % RDW 20.0 H (13.2-15.2) % Plt Count 110 L (140-440) K/mm3 Seg Neuts % (Manual) 87.0 H (40.0-70.0) % Lymphocytes % (Manual) 6.0 L (13.4-35.0) % Nucleated RBC % 1.0 H (0.0-0.9) % Seg Neutrophils # Man 8.4 H (1.8-7.7) K/mm3 Lymphocytes # (Manual) 0.6 L (1.2-5.4) K/mm3 POC ABG pH (7.35-7.45) POC ABG pCO2 (35-45) POC ABG pO2 (80-105) Chloride 87.5 L (98-107) mmol/L Carbon Dioxide 8 L* D (22-30) mmol/L BUN 120 H (9-20) mg/dL Glucose 142 H (75-100) mg/dL POC Glucose 154 H (70-105) Lactic Acid (0.7-2.0) mmol/L Calcium 6.8 L D (8.4-10.2) mg/dL
--- NOTE | 2017-10-16 09:32 | XRay Report ---
AP ABDOMEN: HISTORY: Dobbhoff placement. The Dobbhoff tube terminates in the distal esophagus. The abdominal gas pattern is unremarkable. No masses or organomegaly is identified and there is no gross evidence of free air or fluid. No significant soft tissue calcifications are noted. IMPRESSION: Unremarkable abdomen. The Dobbhoff tube terminates in the distal esophagus. Advancement is recommended.
--- NOTE | 2017-10-16 10:30 | Progress Note ---
Assessment and Plan Severe Sepsis with Shock Acute Encephalopathy Persistent Hypoglycemia Lactic Acidosis (Suspect Type B element) Severe Sepsis with septic shock and MODS Hypoxemic Respiratory Failure IDANIA on CKD Colon cancer with liver metastasis - pull right PICC line and give 24-48 hour line holiday - get CXR re: pulmonary edema / aspiration - will do vasopressors in short if decompensates acutely while adhering to his goals of care wishes also - 2 large bore IV needles in meantime - continue enteral nutrition at 30mls/hr - continue bicarbonate drip - repeat ABG with pH 7.11 and 2 amps NaHCO3 given - continue D10W at 125mls/hr while continuing accuchecks (sugars dropped when reduced to 75mls/hr) - watch closely for pulmonary edema from third spacing - got nephrology consultation - continue cefepime and vancomycin - continue anti-infectives per ID recs - continue aspiration precautions - continue prn bronchodilators with pulmonary hygiene per RT - continue GI prophylaxis - hold on VTE prophylaxis re: coagulopathy - follow H&H - heme-onc evaluation is appropriate - continue to observe closely in ICU re: persistent hypoglycemia and sepsis - continue other care per attending / other consultants .... i doubt aggressive intervention will change even short term prognosis at this point; i will however use 2 vasopressors to attempt to keep his MAP >/= 65 mmHg in the hope that he can overcome the sepsis. I have spoken to his and she will talk with the hospice team now ... prognosis poor ...re-evaluate in am & prn ...40' CCT Subjective Date of service: 10/16/17 Principal diagnosis: Severe Sepsis with Shock; Acute Encephalopathy; Persistent Hypoglycemia Interval history: Patient is seen today for: Severe Sepsis with Shock; Acute Encephalopathy; Persistent Hypoglycemia Seen and examined at bedside; 24hour events reviewed; nursing and respiratory care staff consulted; no adverse overnight events reported to me; continues to decompensate; BP's trending down; remains with severe lactic acidosis; somnolent ; No emesis or overt aspiration and no gross bleeding. Objective Vital Signs - 12hr 10/15/17 10/15/17 10/15/17 22:52 23:00 23:30 Temperature Pulse Rate 82 84 83 Pulse Rate [ From Monitor] Respiratory 13 15 12 Rate Blood Pressure 113/68 110/69 108/66 O2 Sat by Pulse 99 96 Oximetry 10/16/17 10/16/1710/16/18 00:00 00:01 00:30 Temperature 98.1 F Pulse Rate 80 81 84 Pulse Rate [ 86 From Monitor] Respiratory 15 17 14 Rate Blood Pressure 116/74 108/66 111/50 O2 Sat by Pulse 100 100 100 Oximetry 10/16/17 10/16/17 10/16/17 01:00 01:30 02:00 Temperature Pulse Rate 81 83 81 Pulse Rate [ From Monitor] Respiratory 14 16 14 Rate Blood Pressure 111/50 100/60 101/60 O2 Sat by Pulse 100 99 100 Oximetry 10/16/17 10/16/17 10/16/17 02:30 03:00 03:30 Temperature Pulse Rate 85 81 79 Pulse Rate [ From Monitor] Respiratory 16 13 12 Rate Blood Pressure 100/68 106/68 100/62 O2 Sat by Pulse 100 97 Oximetry 10/16/17 10/16/17 10/16/17 04:00 04:30 05:00 Temperature 97.9 F Pulse Rate 80 81 85 Pulse Rate [ 86 From Monitor] Respiratory 14 16 15 Rate Blood Pressure 109/66 103/67 103/63 O2 Sat by Pulse 100 86 100 Oximetry 10/16/17 10/16/17 10/16/17 05:30 06:00 06:30 Temperature Pulse Rate 78 86 80 Pulse Rate [ From Monitor] Respiratory 14 15 13 Rate Blood Pressure 105/66 109/68 102/65 O2 Sat by Pulse 99 100 69 L Oximetry 10/16/17 10/16/17 10/16/17 07:00 07:30 07:31 Temperature Pulse Rate 77 86 Pulse Rate [ From Monitor] Respiratory 13 16 Rate Blood Pressure 95/61 100/64 O2 Sat by Pulse 72 L 97 100 Oximetry 10/16/17 10/16/17 10/16/17 08:00 08:30 09:00 Temperature Pulse Rate 84 91 H 83 Pulse Rate [ 83 From Monitor] Respiratory 14 19 15 Rate Blood Pressure 100/63 107/70 104/65 O2 Sat by Pulse 84 99 98 Oximetry Constitutional: no acute distress, lethargic Eyes: non-icteric ENT: oropharynx moist, other (temporal wasting) Neck: supple, no lymphadenopathy, no JVD, other (no thyromegaly) Effort: mildly labored Ascultation: Bilateral: clear, diminished breath sounds (bases) Percussion: Right: dull, Left: not dull Cardiovascular: regular rate and rhythm, other (No R/M) Gastrointestinal: hypoactive bowel sounds, soft, non-tender, non-distended, other (no papable HSM) Integumentary: other (poor turgor) Extremities: no cyanosis, pulses normal, no ischemia or petechiae, edema (2+) Neurologic: normal mental status, non-focal exam (grossly), pupils equal and round, CN II-XII normal, other (weak) Psychiatric: depressed CBC and BMP: 10/16/17 04:30 10/16/17 04:30 ABG, PT/INR, D-dimer: ABG POC ABG pH 7.210 (7.35-7.45) L 10/15/17 10:00 POC ABG pCO2 28.9 (35-45) L 10/15/17 10:00 POC ABG pO2 115 (80-105) H 10/15/17 10:00 POC ABG HCO3 11.6 10/15/17 10:00 POC ABG Total CO2 12 10/15/17 10:00 POC ABG O2 Sat 98 10/15/17 10:00 PT/INR, D-dimer PT 22.7 Sec. (12.2-14.9) H 10/14/17 21:00 INR 1.87 (0.87-1.13) H 10/14/17 21:00 Abnormal lab findings: Abnormal Labs 10/12/17 10/12/17 10/12/17 12:45 12:57 13:10 RBC 3.02 L Hgb 10.1 L Hct 30.7 L MCV 101 H MCH 33 H MCHC RDW 18.6 H Plt Count Lymph % (Auto) Haakon % (Auto) Lymph # Seg Neutrophils % Seg Neuts % (Manual) 83.0 H Lymphocytes % (Manual) 13.0 L Nucleated RBC % 2.0 H Seg Neutrophils # Man Lymphocytes # (Manual) 0.9 L PT INR POC ABG pH POC ABG pCO2 POC ABG pO2 Sodium Potassium Chloride Carbon Dioxide BUN Glucose POC Glucose < 40 L 192 H Lactic Acid Calcium Phosphorus Total Bilirubin AST ALT Alkaline Phosphatase Total Creatine Kinase C-Reactive Protein NT-Pro-B Natriuret Pep Total Protein Albumin TSH Free T4 Urine Creatinine 10/12/17 10/12/17 10/12/17 13:10 13:10 13:10 RBC Hgb Hct MCV MCH MCHC RDW Plt Count Lymph % (Auto) Haakon % (Auto) Lymph # Seg Neutrophils % Seg Neuts % (Manual) Lymphocytes % (Manual) Nucleated RBC % Seg Neutrophils # Man Lymphocytes # (Manual) PT 21.0 H INR 1.70 H POC ABG pH POC ABG pCO2 POC ABG pO2 Sodium 150 H Potassium 5.6 H Chloride Carbon Dioxide 33 H BUN 143 H Glucose 173 H POC Glucose Lactic Acid Calcium 6.0 L Phosphorus Total Bilirubin 1.90 H AST 120 H ALT 77 H Alkaline Phosphatase 716 H Total Creatine Kinase 261 H C-Reactive Protein NT-Pro-B Natriuret Pep 1026 H Total Protein 4.9 L Albumin 2.2 L TSH Free T4 Urine Creatinine 10/12/17 10/12/17 10/12/17 13:36 14:22 14:45 RBC Hgb Hct MCV MCH MCHC RDW Plt Count Lymph % (Auto) Haakon % (Auto) Lymph # Seg Neutrophils % Seg Neuts % (Manual) Lymphocytes % (Manual) Nucleated RBC % Seg Neutrophils # Man Lymphocytes # (Manual) PT INR POC ABG pH POC ABG pCO2 POC ABG pO2 Sodium Potassium Chloride Carbon Dioxide BUN Glucose POC Glucose 48 L Lactic Acid 5.90 H* 9.10 H* Calcium Phosphorus Total Bilirubin AST ALT Alkaline Phosphatase Total Creatine Kinase C-Reactive Protein NT-Pro-B Natriuret Pep Total Protein Albumin TSH Free T4 Urine Creatinine 10/12/17 10/12/17 10/12/17 14:59 15:04 16:11 RBC Hgb Hct MCV MCH MCHC RDW Plt Count Lymph % (Auto) Haak[place] % (Auto) Lymph # Seg Neutrophils % Seg Neuts % (Manual) Lymphocytes % (Manual) Nucleated RBC % Seg Neutrophils # Man Lymphocytes # (Manual) PT INR POC ABG pH POC ABG pCO2 POC ABG pO2 Sodium Potassium Chloride Carbon Dioxide BUN Glucose POC Glucose 109 H Lactic Acid 9.10 H* Calcium Phosphorus Total Bilirubin AST ALT Alkaline Phosphatase Total Creatine Kinase C-Reactive Protein NT-Pro-B Natriuret Pep Total Protein Albumin TSH 5.130 H Free T4 0.32 L Urine Creatinine 10/12/17 10/12/17 10/12/17 17:23 18:41 19:34 RBC Hgb Hct MCV MCH MCHC RDW Plt Count Lymph % (Auto) Haak[place] % (Auto) Lymph # Seg Neutrophils % Seg Neuts % (Manual) Lymphocytes % (Manual) Nucleated RBC % Seg Neutrophils # Man Lymphocytes # (Manual) PT INR POC ABG pH POC ABG pCO2 POC ABG pO2 Sodium 149 H Potassium Chloride Carbon Dioxide BUN 140 H Glucose POC Glucose 117 H Lactic Acid 10.20 H* Calcium 5.8 L* Phosphorus Total Bilirubin AST ALT Alkaline Phosphatase Total Creatine Kinase C-Reactive Protein NT-Pro-B Natriuret Pep Total Protein Albumin TSH Free T4 Urine Creatinine 10/12/17 10/12/17 10/12/17 19:40 22:34 Unknown RBC Hgb Hct MCV MCH MCHC RDW Plt Count Lymph % (Auto) Haak[place] % (Auto) Lymph # Seg Neutrophils % Seg Neuts % (Manual) Lymphocytes % (Manual) Nucleated RBC % Seg Neutrophils # Man Lymphocytes # (Manual) PT INR POC ABG pH POC ABG pCO2 POC ABG pO2 Sodium Potassium Chloride Carbon Dioxide BUN Glucose POC Glucose 139 H 54 L Lactic Acid 9.90 H* Calcium Phosphorus Total Bilirubin AST ALT Alkaline Phosphatase Total Creatine Kinase C-Reactive Protein NT-Pro-B Natriuret Pep Total Protein Albumin TSH Free T4 Urine Creatinine 10/13/17 10/13/17 10/13/17 09:33 11:02 11:02 RBC Hgb Hct MCV MCH MCHC RDW Plt Count Lymph % (Auto) Haak[place] % (Auto) Lymph # Seg Neutrophils % Seg Neuts % (Manual) Lymphocytes % (Manual) Nucleated RBC % Seg Neutrophils # Man Lymphocytes # (Manual) PT INR POC ABG pH POC ABG pCO2 POC ABG pO2 Sodium Potassium Chloride Carbon Dioxide BUN Glucose POC Glucose 44 L 58 L Lactic Acid Calcium Phosphorus Total Bilirubin AST ALT Alkaline Phosphatase Total Creatine Kinase C-Reactive Protein 1.60 H NT-Pro-B Natriuret Pep Total Protein Albumin TSH Free T4 Urine Creatinine 10/13/17 10/13/17 10/13/17 12:40 12:42 17:50 RBC Hgb Hct MCV MCH MCHC RDW Plt Count Lymph % (Auto) Haak[place] % (Auto) Lymph # Seg Neutrophils % Seg Neuts % (Manual) Lymphocytes % (Manual) Nucleated RBC % Seg Neutrophils # Man Lymphocytes # (Manual) PT INR POC ABG pH POC ABG pCO2 POC ABG pO2 Sodium Potassium Chloride Carbon Dioxide BUN Glucose POC Glucose 108 H 50 L Lactic Acid Calcium Phosphorus Total Bilirubin AST ALT Alkaline Phosphatase Total Creatine Kinase C-Reactive Protein NT-Pro-B Natriuret Pep Total Protein Albumin TSH Free T4 Urine Creatinine 34.6 H 10/13/17 10/13/17 10/14/17 21:54 22:44 02:56 RBC Hgb Hct MCV MCH MCHC RDW Plt Count Lymph % (Auto) [place] % (Auto) Lymph # Seg Neutrophils % Seg Neuts % (Manual) Lymphocytes % (Manual) Nucleated RBC % Seg Neutrophils # Man Lymphocytes # (Manual) PT INR POC ABG pH POC ABG pCO2 POC ABG pO2 Sodium Potassium Chloride Carbon Dioxide BUN Glucose POC Glucose 69 L 125 H 66 L Lactic Acid Calcium Phosphorus Total Bilirubin AST ALT Alkaline Phosphatase Total Creatine Kinase C-Reactive Protein NT-Pro-B Natriuret Pep Total Protein Albumin TSH Free T4 Urine Creatinine 10/14/17 10/14/17 10/14/17 13:32 13:45 13:45 RBC 2.93 L Hgb 10.0 L Hct 30.4 L MCV 104 H MCH 34 H MCHC RDW 19.5 H Plt Count 104 L Lymph % (Auto) 11.6 L Haakon % (Auto) 7.4 H Lymph # 0.9 L Seg Neutrophils % 80.8 H Seg Neuts % (Manual) Lymphocytes % (Manual) Nucleated RBC % Seg Neutrophils # Man Lymphocytes # (Manual) PT INR POC ABG pH POC ABG pCO2 POC ABG pO2 Sodium Potassium Chloride Carbon Dioxide BUN Glucose POC Glucose < 40 L Lactic Acid Calcium Phosphorus 6.10 H Total Bilirubin AST ALT Alkaline Phosphatase Total Creatine Kinase C-Reactive Protein NT-Pro-B Natriuret Pep Total Protein Albumin TSH Free T4 Urine Creatinine 10/14/17 10/14/17 10/14/17 13:45 13:45 13:59 RBC Hgb Hct MCV MCH MCHC RDW Plt Count Lymph % (Auto) [place]ak[place] % (Auto) Lymph # Seg Neutrophils % Seg Neuts % (Manual) Lymphocytes % (Manual) Nucleated RBC % Seg Neutrophils # Man Lymphocytes # (Manual) PT INR POC ABG pH POC ABG pCO2 POC ABG pO2 Sodium Potassium Chloride Carbon Dioxide 17 L BUN 127 H Glucose POC Glucose 144 H Lactic Acid 13.30 H* Calcium 5.7 L* Phosphorus Total Bilirubin AST ALT Alkaline Phosphatase Total Creatine Kinase C-Reactive Protein NT-Pro-B Natriuret Pep Total Protein Albumin TSH Free T4 Urine Creatinine 10/14/17 10/14/17 10/14/17 14:43 15:57 17:12 RBC Hgb Hct MCV MCH MCHC RDW Plt Count Lymph % (Auto) [place] % (Auto) Lymph # Seg Neutrophils % Seg Neuts % (Manual) Lymphocytes % (Manual) Nucleated RBC % Seg Neutrophils # Man Lymphocytes # (Manual) PT INR POC ABG pH POC ABG pCO2 POC ABG pO2 Sodium Potassium Chloride Carbon Dioxide BUN Glucose POC Glucose 54 L Lactic Acid 15.10 H* 16.80 H* Calcium Phosphorus Total Bilirubin AST ALT Alkaline Phosphatase Total Creatine Kinase C-Reactive Protein NT-Pro-B Natriuret Pep Total Protein Albumin TSH Free T4 Urine Creatinine 10/14/17 10/14/17 10/14/17 17:31 21:00 21:00 RBC Hgb Hct MCV MCH MCHC RDW Plt Count Lymph % (Auto) Haak[place] % (Auto) Lymph # Seg Neutrophils % Seg Neuts % (Manual) Lymphocytes % (Manual) Nucleated RBC % Seg Neutrophils # Man Lymphocytes # (Manual) PT 22.7 H INR 1.87 H POC ABG pH 7.245 L POC ABG pCO2 32.8 L POC ABG pO2 Sodium Potassium Chloride Carbon Dioxide BUN Glucose POC Glucose Lactic Acid 14.90 H* Calcium Phosphorus Total Bilirubin AST ALT Alkaline Phosphatase Total Creatine Kinase C-Reactive Protein NT-Pro-B Natriuret Pep Total Protein Albumin TSH Free T4 Urine Creatinine 10/14/17 10/14/17 10/14/17 21:33 21:35 23:00 RBC Hgb Hct MCV MCH MCHC RDW Plt Count Lymph % (Auto) [place] % (Auto) Lymph # Seg Neutrophils % Seg Neuts % (Manual) Lymphocytes % (Manual) Nucleated RBC % Seg Neutrophils # Man Lymphocytes # (Manual) PT INR POC ABG pH POC ABG pCO2 POC ABG pO2 Sodium Potassium Chloride Carbon Dioxide BUN Glucose 35 L* POC Glucose < 40 L Lactic Acid 14.10 H* Calcium Phosphorus Total Bilirubin AST ALT Alkaline Phosphatase Total Creatine Kinase C-Reactive Protein NT-Pro-B Natriuret Pep Total Protein Albumin TSH Free T4 Urine Creatinine 10/15/17 10/15/17 10/15/17 03:50 06:00 06:00 RBC 2.85 L Hgb 9.7 L Hct 29.2 L MCV 102 H MCH 34 H MCHC RDW 19.1 H Plt Count 95 L Lymph % (Auto) 11.1 L Haakon % (Auto) Lymph # 0.9 L Seg Neutrophils % 83.7 H Seg Neuts % (Manual) Lymphocytes % (Manual) Nucleated RBC % Seg Neutrophils # Man Lymphocytes # (Manual) PT INR POC ABG pH POC ABG pCO2 POC ABG pO2 Sodium Potassium Chloride 91.0 L Carbon Dioxide BUN 118 H Glucose 319 H POC Glucose Lactic Acid 14.40 H* Calcium 5.6 L* Phosphorus Total Bilirubin AST ALT Alkaline Phosphatase Total Creatine Kinase C-Reactive Protein NT-Pro-B Natriuret Pep Total Protein Albumin TSH Free T4 Urine Creatinine 10/15/17 10/15/17 10/15/17 09:52 10:00 14:37 RBC Hgb Hct MCV MCH MCHC RDW Plt Count Lymph % (Auto) [place] % (Auto) Lymph # Seg Neutrophils % Seg Neuts % (Manual) Lymphocytes % (Manual) Nucleated RBC % Seg Neutrophils # Man Lymphocytes # (Manual) PT INR POC ABG pH 7.210 L POC ABG pCO2 28.9 L POC ABG pO2 115 H Sodium Potassium Chloride Carbon Dioxide BUN Glucose POC Glucose 119 H 53 L Lactic Acid Calcium Phosphorus Total Bilirubin AST ALT Alkaline Phosphatase Total Creatine Kinase C-Reactive Protein NT-Pro-B Natriuret Pep Total Protein Albumin TSH Free T4 Urine Creatinine 10/15/17 10/16/17 10/16/17 21:56 02:04 04:30 RBC 3.01 L Hgb 9.8 L Hct 32.5 L MCV 108 H MCH 33 H MCHC 30 L RDW 20.0 H Plt Count 110 L Lymph % (Auto) Haakon % (Auto) Lymph # Seg Neutrophils % Seg Neuts % (Manual) 87.0 H Lymphocytes % (Manual) 6.0 L Nucleated RBC % 1.0 H Seg Neutrophils # Man 8.4 H Lymphocytes # (Manual) 0.6 L PT INR POC ABG pH POC ABG pCO2 POC ABG pO2 Sodium Potassium Chloride Carbon Dioxide BUN Glucose POC Glucose 111 H 138 H Lactic Acid Calcium Phosphorus Total Bilirubin AST ALT Alkaline Phosphatase Total Creatine Kinase C-Reactive Protein NT-Pro-B Natriuret Pep Total Protein Albumin TSH Free T4 Urine Creatinine 10/16/17 10/16/17 04:30 05:36 RBC Hgb Hct MCV MCH MCHC RDW Plt Count Lymph % (Auto) [place] % (Auto) Lymph # Seg Neutrophils % Seg Neuts % (Manual) Lymphocytes % (Manual) Nucleated RBC % Seg Neutrophils # Man Lymphocytes # (Manual) PT INR POC ABG pH POC ABG pCO2 POC ABG pO2 Sodium Potassium Chloride 87.5 L Carbon Dioxide 8 L* D BUN 120 H Glucose 142 H POC Glucose 154 H Lactic Acid Calcium 6.8 L D Phosphorus Total Bilirubin AST ALT Alkaline Phosphatase Total Creatine Kinase C-Reactive Protein NT-Pro-B Natriuret Pep Total Protein Albumin TSH Free T4 Urine Creatinine Allied health notes reviewed: nursing
--- NOTE | 2017-10-16 11:42 | XRay Report ---
AP ABDOMEN: HISTORY: Dobbhoff tube placement. The Dobbhoff tube was then advanced to the mid stomach since earlier today at 0841 hours. The remainder of the examination is unchanged. IMPRESSION: Unremarkable abdomen.
[2017-10-16] MEDS: PEPCID PO SCH ×2 (12:13→21:56)
[2017-10-16] MEDS: SODIUM CHLORIDE FLUSH SYRINGE 10 ML IV SCH ×2 (12:13→22:01)
[2017-10-16] MEDS: MORPHINE IV PRN ×3 (12:29→23:08)
[2017-10-16] MEDS ORDERED: SODIUM BICARBONATE IV ONE (13:00)
[2017-10-16] MEDS: LEVOPHED DRIP 4 MG/NS 250 ML 4 MG/250 ML BAG IV SCH (14:29)
--- NOTE | 2017-10-16 16:09 | XRay Report ---
FINAL REPORT EXAM: XR CHEST 1V AP HISTORY: Hypoxemic Respiratory Failure TECHNIQUE: Frontal chest x-ray. PRIORS: Chest x-ray October 14, 2017. FINDINGS: Cardiac silhouette is within normal limits and stable. Aortic calcifications. Prominent bilateral perihilar central pulmonary markings with airspace opacities. No pneumothorax. Ill-defined opacities in both lung bases suggests small to moderate bilateral pleural effusions with adjacent areas of focal subsegmental atelectasis or infiltrate. No pneumothorax. There are no suspicious osseous lesions. Anterior cervical device noted. Enteric tube extends into the stomach with the tip beyond the margins of the film. IMPRESSION: Pulmonary findings may represent pulmonary vascular congestion with edema. Differential diagnosis would include acute pneumonitis. Small to moderate bilateral pleural effusions with adjacent areas of focal subsegmental atelectasis and or infiltrates.
[2017-10-16] MEDS: LEVOPHED 8 MG in NACL 0.9% 250ML 242 ML IV SCH ×2 (16:56→22:46)
[2017-10-16] MEDS: Vasostrict 20 UNIT in NACL 0.9% 100 ML IV SCH (17:27)
--- NOTE | 2017-10-16 19:49 | Progress Note ---
Assessment and Plan Assessment: 1) Severe Sepsis with septic shock: better Etiology - GPC bacteremia +/- pneumonia 2) MSSE bacteremia: ? real from PICC line infection 3) Recent Fecal peritonitis: From probably colon perforation. Likely polymicrobial. OR cx Ecoli, Klebsiella, Citrobacter and Tiff albicans - fully treated 3) Presumed pneumonia 4) Elevated LFTs 5) Presumed colon cancer with liver metastasis 6) IDANIA Plan: -continue cefazolin -f/u repeat blood cx -sputum cx -wound care -stop contact isolation -remove PICC Discussed with Dr Lula Silver MD Subjective Date of service: 10/16/17 Principal diagnosis: Severe Sepsis with Shock; Acute Encephalopathy; Persistent Hypoglycemia Interval history: No fever or hypothermia, off pressors. Microbiology: Blood cultures: 08/29 neg 10/12 MSSE 2 of 4 bottles Respiratory cultures: 08/28 neg OR cultures: 08/28 Ecoli, Klebsiella, Citrobacter and Tiff albicans Current Antimicrobials: cefepime 10/13 vanco 10/13 Previous Antimicrobials: Vancomycin 08/28-09/06 Zosyn 08/28-09/06 Fluconazole 08/28-09/10 levaquin 09/06-09/10 Objective - Exam Narrative Exam: General appearance:somnolent debilitated in mild resp distress Eyes: anicteric sclerae, moist conjunctivae; no lid-lag; PERRLA HENT: Atraumatic; oropharynx clear Neck: Trachea midline; supple, no thyromegaly or lymphadenopathy Lungs: CTA, with normal respiratory effort and no intercostal retractions CV: RRR, no murmurs Abdomen: Soft, non-tender; midline wound clear no drainage, ostomy bag with stools Extremities: amaya leg edema Skin: Normal temperature, turgor and texture; no rash, ulcers or subcutaneous nodules Psych: somnolent Neuro: somnolent Lines: old PICC ? - Constitutional Vitals: Vital Signs Temp Pulse Resp BP Pulse Ox 97.9 F 83 20 103/67 94 10/16/17 04:00 10/16/17 18:30 10/16/17 18:30 10/16/17 18:30 10/16/17 18:30 Temperature -Last 24 Hours Temperature 97.9 F Temperature 98.1 F Temperature 98.8 F - Labs CBC & Chem 7: 10/16/17 04:30 10/16/17 04:30 Labs: Abnormal lab results 10/15/17 10/16/17 10/16/17 Range/Units 21:56 02:04 04:30 RBC 3.01 L (3.65-5.03) M/mm3 Hgb 9.8 L (11.8-15.2) gm/dl Hct 32.5 L (35.5-45.6) % MCV 108 H (84-94) fl MCH 33 H (28-32) pg MCHC 30 L (32-34) % RDW 20.0 H (13.2-15.2) % Plt Count 110 L (140-440) K/mm3 Seg Neuts % (Manual) 87.0 H (40.0-70.0) % Lymphocytes % (Manual) 6.0 L (13.4-35.0) % Nucleated RBC % 1.0 H (0.0-0.9) % Seg Neutrophils # Man 8.4 H (1.8-7.7) K/mm3 Lymphocytes # (Manual) 0.6 L (1.2-5.4) K/mm3 POC ABG pH (7.35-7.45) POC ABG pCO2 (35-45) Chloride (98-107) mmol/L Carbon Dioxide (22-30) mmol/L BUN (9-20) mg/dL Glucose (75-100) mg/dL POC Glucose 111 H 138 H (70-105) Lactic Acid (0.7-2.0) mmol/L Calcium (8.4-10.2) mg/dL 10/16/17 10/16/17 10/16/17 Range/Units 04:30 05:36 10:41 RBC (3.65-5.03) M/mm3 Hgb (11.8-15.2) gm/dl Hct (35.5-45.6) % MCV (84-94) fl MCH (28-32) pg MCHC (32-34) % RDW (13.2-15.2) % Plt Count (140-440) K/mm3 Seg Neuts % (Manual) (40.0-70.0) % Lymphocytes % (Manual) (13.4-35.0) % Nucleated RBC % (0.0-0.9) % Seg Neutrophils # Man (1.8-7.7) K/mm3 Lymphocytes # (Manual) (1.2-5.4) K/mm3 POC ABG pH (7.35-7.45) POC ABG pCO2 (35-45) Chloride 87.5 L (98-107) mmol/L Carbon Dioxide 8 L* D (22-30) mmol/L BUN 120 H (9-20) mg/dL Glucose 142 H (75-100) mg/dL POC Glucose 154 H 193 H (70-105) Lactic Acid (0.7-2.0) mmol/L Calcium 6.8 L D (8.4-10.2) mg/dL 10/16/17 10/16/17 10/16/17 Range/Units 12:20 12:55 13:50 RBC (3.65-5.03) M/mm3 Hgb (11.8-15.2) gm/dl Hct (35.5-45.6) % MCV (84-94) fl MCH (28-32) pg MCHC (32-34) % RDW (13.2-15.2) % Plt Count (140-440) K/mm3 Seg Neuts % (Manual) (40.0-70.0) % Lymphocytes % (Manual) (13.4-35.0) % Nucleated RBC % (0.0-0.9) % Seg Neutrophils # Man (1.8-7.7) K/mm3 Lymphocytes # (Manual) (1.2-5.4) K/mm3 POC ABG pH 7.111 L (7.35-7.45) POC ABG pCO2 24.1 L (35-45) Chloride (98-107) mmol/L Carbon Dioxide (22-30) mmol/L BUN (9-20) mg/dL Glucose (75-100) mg/dL POC Glucose 222 H (70-105) Lactic Acid 28.90 H* (0.7-2.0) mmol/L Calcium (8.4-10.2) mg/dL 10/16/17 Range/Units 18:10 RBC (3.65-5.03) M/mm3 Hgb (11.8-15.2) gm/dl Hct (35.5-45.6) % MCV (84-94) fl MCH (28-32) pg MCHC (32-34) % RDW (13.2-15.2) % Plt Count (140-440) K/mm3 Seg Neuts % (Manual) (40.0-70.0) % Lymphocytes % (Manual) (13.4-35.0) % Nucleated RBC % (0.0-0.9) % Seg Neutrophils # Man (1.8-7.7) K/mm3 Lymphocytes # (Manual) (1.2-5.4) K/mm3 POC ABG pH (7.35-7.45) POC ABG pCO2 (35-45) Chloride (98-107) mmol/L Carbon Dioxide (22-30) mmol/L BUN (9-20) mg/dL Glucose (75-100) mg/dL POC Glucose 195 H (70-105) Lactic Acid (0.7-2.0) mmol/L Calcium (8.4-10.2) mg/dL
[2017-10-17] MEDS: ceFAZolin 2 GM in NACL 0.9% 20 ML IV SCH ×4 (00:12→15:32)
[2017-10-17] MEDS: Vasostrict 20 UNIT in NACL 0.9% 100 ML IV SCH ×2 (00:13→16:02)
[2017-10-17 03:56] LABS: BUN/Creatinine Ratio 92; Blood Urea Nitrogen 110 mg/dL (9-20); Calcium 6.4 mg/dL (8.4-10.2); Hemolysis Index 149
[2017-10-17 03:59] LABS: Mean Corpuscular HGB Conc 30 % (32-34); Mean Corpuscular Hemoglobin 32 pg (28-32); Mean Corpuscular Volume 108 fl (84-94); Red Blood Count 3.44 M/mm3 (3.65-5.03); Red Cell Distribution Width 19.1 % (13.2-15.2)
[2017-10-17 04:03] LABS: Hemoglobin 10.9 gm/dl (11.8-15.2)
[2017-10-17] MEDS: LEVOPHED 8 MG in NACL 0.9% 250ML 242 ML IV SCH ×4 (04:47→18:17)
[2017-10-17 05:15] LABS: Band Neutrophils # (Manual) 0.3 K/mm3; Basophils % (Manual) 0 % (0.0-1.8); Eosinophils % (Manual) 0 % (0.0-4.3); Myelocytes # (Manual) 0.1 K/mm3; Total Cells Counted 25
[2017-10-17 05:16] LABS: Crenated RBC 3+; Platelet Estimate Cons
[2017-10-17 05:18] LABS: Platelet Count 58 K/mm3 (140-440)
[2017-10-17] MEDS: SYNTHROID IV SCH (06:01)
[2017-10-17] MEDS: HEPARIN SUB-Q SCH (06:01)
[2017-10-17] MEDS: MORPHINE IV PRN ×2 (06:17→11:13)
--- NOTE | 2017-10-17 08:30 | Consultation ---
History of Present Illness - Reason for Consult Consult date: 10/17/17 Requesting physician: GIOVANNY MULTANI - History of Present Illness 56-year-old [facility] resident unable to give a history brought to the hospital because of increasing confusion and difficult to arouse. Patient found by EMS to be stuporous and was brought to the hospital. Was found to be hypoglycemic, hypothermic, hypernatremic with lactic acidosis and in myxedema coma. BUN and creatinine found to be elevated at 110/1.2 mg/dL. I'm consulted to assist in managing this. On presentation sodium was also high at 150 and potassium at 5.6 mmol per liter. Patient was just in the hospital admitted from August 28 till September 14 with abdominal for pain and he had free air and had emergent exploratory laparotomy, and colostomy, Akira pouch and bowel resection. Since this admission , he has being placed on empiric antibiotics, volume resuscitated and been seen by infectious disease system consultant. I'm not consulted to assist managing his renal failure with electrolyte abnormalities with the acid base disturbance which has not been improving despite bicarbonate infusion Past History Past Medical History: DVT, hypertension, pulmonary embolism, other (dementia, debility) Past Surgical History: bowel surgery, Other (cervical fusion) Social history: , other (unable to obtain). denies: smoking, alcohol abuse Family history: no significant family history (reviewed), other (unable to obtain) Medications and Allergies Allergies Allergy/AdvReac Type Severity Reaction Status Date / Time No Known Allergies Allergy Unverified 04/10/14 02:49 Home Medications Medication Instructions Recorded Confirmed Last Taken Type ALBUTEROL NEB's [Proventil 0.083% 2.5 mg IH Q6HRT PRN nebu 09/14/17 10/12/17 Unknown Rx NEBS] ALPRAZolam [Xanax TAB] 0.5 mg PO Q12H PRN tablet 09/14/17 10/12/17 Unknown Rx Lispro Insulin [Humalog] 0 unit SUB-Q Q6HR units 09/14/17 10/12/17 Unknown Rx Min Oil/Petrolatum [Artificial 1 applic OU Q4HR PRN tube 09/14/17 10/12/17 Unknown Rx Tears Ophth Oint] Ranitidine HCl [Zantac 150 MG TAB] 150 mg PO BID #60 tablet 09/14/17 10/12/17 Unknown Rx Active Meds: Active Medications Acetaminophen (Tylenol) 650 mg PO Q4H PRN PRN Reason: Pain MILD(1-3)/Fever >100.5/SINGH Last Admin: 10/13/17 21:56 Dose: 650 mg Albuterol (Proventil) 2.5 mg IH Q4HRT PRN PRN Reason: Shortness Of Breath Alprazolam (Xanax) 0.5 mg PO Q12H PRN PRN Reason: Anxiety Lipase/Protease/Amylase (Pancreaze Dr 10,500 Unit) 1 each FEEDTUBE PRN PRN PRN Reason: For Clogged Feeding Tube Dextrose (D50w (25gm) Syringe) 50 ml IV PRN PRN PRN Reason: Hypoglycemia Last Admin: 10/14/17 21:37 Dose: 50 ml Famotidine (Pepcid) 20 mg PO BID [facility] Last Admin: 10/16/17 21:56 Dose: 20 mg Heparin Sodium (Porcine) (Heparin) 5,000 unit SUB-Q Q8HR IAIN Last Admin: 10/17/17 06:01 Dose: 5,000 unit Sodium Bicarbonate 150 meq/ (Dextrose) 1,150 mls @ 75 mls/hr IV DIRECT IAIN Stop: 10/17/17 09:49 Last Admin: 10/16/17 13:56 Dose: 125 mls/hr Cefazolin Sodium 2 gm/ Sodium (Chloride) 20 mls @ 2 mls/min IV Q8H IAIN Last Admin: 10/17/17 08:27 Dose: 2 mls/min Dextrose (D10w) 1,000 mls @ 125 mls/hr IV DIRECT IAIN Last Admin: 10/16/17 13:25 Dose: 125 mls/hr Vasopressin 20 unit/ Sodium (Chloride) 101 mls @ 9.09 mls/hr IV TITR IAIN; Protocol Last Admin: 10/17/17 00:13 Dose: 0.03 units/min, 9.09 mls/hr Norepinephrine 8 mg/ Sodium (Chloride) 250 mls @ 3.75 mls/hr IV TITR IAIN; Protocol Last Admin: 10/17/17 04:47 Dose: 24 mcg/min, 45 mls/hr Levothyroxine Sodium (Synthroid) 100 mcg IV DAILY@0600 [facility] Last Admin: 10/17/17 06:01 Dose: 100 mcg Morphine Sulfate (Morphine) 1 mg IV Q4H PRN PRN Reason: Pain, Moderate (4-6) Last Admin: 10/17/17 06:17 Dose: 1 mg Ondansetron HCl (Zofran) 4 mg IV Q8H PRN PRN Reason: Nausea And Vomiting Last Admin: 10/13/17 22:45 Dose: 4 mg Simple Syrup (Simple Syrup) 15 ml FEEDTUBE PRN PRN PRN Reason: Hypoglycemia Simple Syrup (Simple Syrup) 30 ml FEEDTUBE PRN PRN PRN Reason: Hypoglycemia Sodium Bicarbonate (Sodium Bicarbonate) 325 mg FEEDTUBE PRN PRN PRN Reason: For Clogged Feeding Tube Sodium Chloride (Sodium Chloride Flush Syringe 10 Ml) 10 ml IV BID IAIN Last Admin: 10/16/17 22:01 Dose: 10 ml Sodium Chloride (Sodium Chloride Flush Syringe 10 Ml) 10 ml IV PRN PRN PRN Reason: LINE FLUSH Last Admin: 10/16/17 12:30 Dose: 10 ml Review of Systems ROS unobtainable: due to mental status Exam - Vital Signs Vital signs: Vital Signs Pulse Resp BP Pulse Ox 57 L 10 L 45/24 96 10/12/17 12:33 10/12/17 12:33 10/12/17 12:33 10/12/17 12:33 - Physical Exam Narrative exam: Frail middle-aged -[place] male lying in bed on BiPAP in no acute distress HEENT: NCAT, difficult to examine his mouth due to BiPAP Neck: Supple, no venous distention CVS: S1S2 RRR with no murmur, rub or gallop Chest: Bilateral rhonchi with use of accessory muscles of respiration Abdomen: Protuberant, soft, left lower quadrant ostomy, wound in the lower abdomen with dressing over it, nontender, no organomegaly, bowel sounds are present Extremities: 2+ edema Neuro: Opens eyes but not following commands Results - Lab Results 10/17/17 03:07 10/17/17 03:07 Most recent lab results Calcium 6.4 mg/dL (8.4-10.2) L 10/17/17 03:07 Phosphorus 6.10 mg/dL (2.5-4.5) H 10/14/17 13:45 Magnesium 2.10 mg/dL (1.7-2.3) 10/14/17 13:45 Urine Creatinine 34.6 mg/dL (0.1-20.0) H 10/13/17 12:40 Urine Sodium 11 mmol/L 10/13/17 12:40 Assessment and Plan - Patient Problems (1) Acute kidney failure with tubular necrosis Status: Acute Plan to address problem: Acute tubular necrosis secondary to hypotension/sepsis. We'll get urine studies. Continue following patient. Wean vasopressors maintaining mean arterial pressure more than 65 m/m. Follow-up electrolytes and renal function. (2) Severe sepsis with septic shock Status: Acute Plan to address problem: Continue antibiotics per infectious disease. Continue following patient. Continue vasopressors (3) Transaminasemia Status: Acute Plan to address problem: Follow-up liver function tests (4) Hyponatremia Status: Acute Plan to address problem: Continue following patient with isotonic saline and follow sodium (5) Lactic acid acidosis Status: Acute Plan to address problem: Lactic acidosis plus uremic acidosis plus bicarbonate loss with ostomy. Continue bicarbonate infusion for now. Patient's prognosis is poor.
--- NOTE | 2017-10-17 09:08 | Progress Note ---
Assessment and Plan Assessment: 1) Severe Sepsis with septic shock: worsening. Etiology - GPC bacteremia +/- pneumonia 2) MSSE bacteremia: ? real from PICC line infection 3) Recent Fecal peritonitis: From probably colon perforation. Likely polymicrobial. OR cx Ecoli, Klebsiella, Citrobacter and Tiff albicans - fully treated 3) Presumed pneumonia 4) Elevated LFTs 5) Presumed colon cancer with liver metastasis 6) IDANIA Plan: -continue cefazolin -add flagyl, fluconazole -f/u repeat blood cx -sputum cx -wound care -stop contact isolation consider palliative care Discussed with Dr Lula Silver MD Subjective Date of service: 10/17/17 Principal diagnosis: Severe Sepsis with Shock; Acute Encephalopathy; Persistent Hypoglycemia Interval history: Remains critically ill now on 2 pressors, No fever or hypothermia, somnolent on BIPAP Microbiology: Blood cultures: 08/29 neg 10/12 MSSE 2 of 4 bottles Respiratory cultures: 08/28 neg OR cultures: 08/28 Ecoli, Klebsiella, Citrobacter and Tiff albicans Current Antimicrobials: cefepime 10/13 vanco 10/13 Previous Antimicrobials: Vancomycin 08/28-09/06 Zosyn 08/28-09/06 Fluconazole 08/28-09/10 levaquin 09/06-09/10 Objective - Exam Narrative Exam: General appearance:somnolent debilitated in mild resp distress on CPAP Eyes: anicteric sclerae, moist conjunctivae; no lid-lag; PERRLA HENT: Atraumatic; oropharynx clear Neck: Trachea midline; supple, no thyromegaly or lymphadenopathy Lungs: CTA, with normal respiratory effort and no intercostal retractions CV: RRR, no murmurs Abdomen: Soft, non-tender; midline wound clear no drainage, ostomy bag with stools Extremities: amaya leg edema Skin: Normal temperature, turgor and texture; no rash, ulcers or subcutaneous nodules Psych: somnolent Neuro: somnolent Lines: - Constitutional Vitals: Vital Signs Temp Pulse Resp BP Pulse Ox 98.2 F 77 17 114/78 95 10/17/17 08:00 10/17/17 06:01 10/17/17 06:01 10/17/17 06:01 10/17/17 08:40 Temperature -Last 24 Hours Temperature 98.2 F Temperature 97.8 F Temperature 98.4 F Temperature 97.4 F - Labs CBC & Chem 7: 10/17/17 03:07 10/17/17 03:07 Labs: Abnormal lab results 10/16/17 10/16/17 10/16/17 Range/Units 10:41 12:20 12:55 WBC (4.5-11.0) K/mm3 RBC (3.65-5.03) M/mm3 Hgb (11.8-15.2) gm/dl MCV (84-94) fl MCHC (32-34) % RDW (13.2-15.2) % Plt Count (140-440) K/mm3 Lymphocytes % (Manual) (13.4-35.0) % Monocytes % (Manual) (0.0-7.3) % Seg Neutrophils # Man (1.8-7.7) K/mm3 Lymphocytes # (Manual) (1.2-5.4) K/mm3 POC ABG pH 7.111 L (7.35-7.45) POC ABG pCO2 24.1 L (35-45) Sodium (137-145) mmol/L Chloride (98-107) mmol/L Carbon Dioxide (22-30) mmol/L BUN (9-20) mg/dL Glucose (75-100) mg/dL POC Glucose 193 H (70-105) Lactic Acid 28.90 H* (0.7-2.0) mmol/L Calcium (8.4-10.2) mg/dL 10/16/17 10/16/17 10/16/17 Range/Units 13:50 18:10 21:56 WBC (4.5-11.0) K/mm3 RBC (3.65-5.03) M/mm3 Hgb (11.8-15.2) gm/dl MCV (84-94) fl MCHC (32-34) % RDW (13.2-15.2) % Plt Count (140-440) K/mm3 Lymphocytes % (Manual) (13.4-35.0) % Monocytes % (Manual) (0.0-7.3) % Seg Neutrophils # Man (1.8-7.7) K/mm3 Lymphocytes # (Manual) (1.2-5.4) K/mm3 POC ABG pH (7.35-7.45) POC ABG pCO2 (35-45) Sodium (137-145) mmol/L Chloride (98-107) mmol/L Carbon Dioxide (22-30) mmol/L BUN (9-20) mg/dL Glucose (75-100) mg/dL POC Glucose 222 H 195 H 181 H (70-105) Lactic Acid (0.7-2.0) mmol/L Calcium (8.4-10.2) mg/dL 10/17/17 10/17/17 10/17/17 Range/Units 01:52 03:07 03:07 WBC 1.3 L* (4.5-11.0) K/mm3 RBC 3.44 L (3.65-5.03) M/mm3 Hgb 10.9 L (11.8-15.2) gm/dl MCV 108 H (84-94) fl MCHC 30 L (32-34) % RDW 19.1 H (13.2-15.2) % Plt Count 58 L (140-440) K/mm3 Lymphocytes % (Manual) 8.0 L (13.4-35.0) % Monocytes % (Manual) 8.0 H (0.0-7.3) % Seg Neutrophils # Man 0.7 L (1.8-7.7) K/mm3 Lymphocytes # (Manual) 0.1 L (1.2-5.4) K/mm3 POC ABG pH (7.35-7.45) POC ABG pCO2 (35-45) Sodium 132 L D (137-145) mmol/L Chloride 77.8 L (98-107) mmol/L Carbon Dioxide 12 L (22-30) mmol/L BUN 110 H (9-20) mg/dL Glucose 308 H (75-100) mg/dL POC Glucose 193 H (70-105) Lactic Acid (0.7-2.0) mmol/L Calcium 6.4 L (8.4-10.2) mg/dL 10/17/17 Range/Units 05:38 WBC (4.5-11.0) K/mm3 RBC (3.65-5.03) M/mm3 Hgb (11.8-15.2) gm/dl MCV (84-94) fl MCHC (32-34) % RDW (13.2-15.2) % Plt Count (140-440) K/mm3 Lymphocytes % (Manual) (13.4-35.0) % Monocytes % (Manual) (0.0-7.3) % Seg Neutrophils # Man (1.8-7.7) K/mm3 Lymphocytes # (Manual) (1.2-5.4) K/mm3 POC ABG pH (7.35-7.45) POC ABG pCO2 (35-45) Sodium (137-145) mmol/L Chloride (98-107) mmol/L Carbon Dioxide (22-30) mmol/L BUN (9-20) mg/dL Glucose (75-100) mg/dL POC Glucose 153 H (70-105) Lactic Acid (0.7-2.0) mmol/L Calcium (8.4-10.2) mg/dL
--- NOTE | 2017-10-17 09:59 | Progress Note ---
Assessment and Plan Assessment and plan: - Septic shock with MODS. Coag-negative staph bacteremia. Blood cultures revealed coag-negative staph. Patient currently with vancomycin. Continue antibiotics per ID. - Severe leukopenia and thrombocytopenia: WBC trended down from 9.7-1.3, platelet count dropped from 110-58 - Metabolic acidosis: On Bicarbonate drip. Increased same. Trend lab, bicarbonate level this morning is 12 with a PSA today - Acute hypoxemic respiratory failure. Patient currently on BiPAP. As you likely secondary to #1. Pulmonary following. s/p perforated abdominal viscus with s/p exploratory lap, sigmoid colectomy, colostomy and Burnette's pouch on 08/28. Continue IV antibiotics - ? Myxedema coma. Continue Synthroid. Check thyroid panel. - Hypoglycemia. Continue IV dextrose. Monitor BMP. Toxic metabolic encephalopathy. Continue to treat underlying causes. - Elevated LFTs. Etiology likely secondary to ischemic hepatitis from #1. Continue to monitor LFTs. - Adenocarcinoma of the colon with liver metastasis. Patient with moderately differentiated adenocarcinoma of the sigmoid colon with invasion into the muscularis propria - Elevated BUN. Etiology may be secondary to GI. Check Hemoccult stool. Stool for hemocult. patient is a candidate for hospice care. Hospitalist Physical - Constitutional Vitals: Temp Pulse Resp BP Pulse Ox 98.2 F 77 17 114/78 95 10/17/17 08:00 10/17/17 06:01 10/17/17 06:01 10/17/17 06:01 10/17/17 08:40 General appearance: Present: no acute distress, well-nourished Results - Labs CBC & Chem 7: 10/17/17 03:07 10/17/17 03:07 Labs: Laboratory Last Values WBC 1.3 K/mm3 (4.5-11.0) L* 10/17/17 03:07 RBC 3.44 M/mm3 (3.65-5.03) L 10/17/17 03:07 Hgb 10.9 gm/dl (11.8-15.2) L 10/17/17 03:07 Hct 37.0 % (35.5-45.6) 10/17/17 03:07 MCV 108 fl (84-94) H 10/17/17 03:07 MCH 32 pg (28-32) 10/17/17 03:07 MCHC 30 % (32-34) L 10/17/17 03:07 RDW 19.1 % (13.2-15.2) H 10/17/17 03:07 Plt Count 58 K/mm3 (140-440) L 10/17/17 03:07 Lymph % (Auto) 11.1 % (13.4-35.0) L 10/15/17 06:00 Harvey % (Auto) Principal Clerk Typist 10/17/17 03:07 Eos % (Auto) 0.1 % (0.0-4.3) 10/15/17 06:00 Baso % (Auto) 0.5 % (0.0-1.8) 10/15/17 06:00 Lymph # 0.9 K/mm3 (1.2-5.4) L 10/15/17 06:00 Harvey # 0.4 K/mm3 (0.0-0.8) 10/15/17 06:00 Eos # 0.0 K/mm3 (0.0-0.4) 10/15/17 06:00 Baso # 0.0 K/mm3 (0.0-0.1) 10/15/17 06:00 Add Manual Diff Complete 10/17/17 03:07 Total Counted 25 10/17/17 03:07 Seg Neutrophils % 83.7 % (40.0-70.0) H 10/15/17 06:00 Seg Neuts % (Manual) 56.0 % (40.0-70.0) 10/17/17 03:07 Band Neutrophils % 24.0 % 10/17/17 03:07 Lymphocytes % (Manual) 8.0 % (13.4-35.0) L 10/17/17 03:07 Reactive Lymphs % (Man) 0 % 10/17/17 03:07 Monocytes % (Manual) 8.0 % (0.0-7.3) H 10/17/17 03:07 Eosinophils % (Manual) 0 % (0.0-4.3) 10/17/17 03:07 Basophils % (Manual) 0 % (0.0-1.8) 10/17/17 03:07 Metamyelocytes % 0 % 10/17/17 03:07 Myelocytes % 4.0 % 10/17/17 03:07 Promyelocytes % 0 % 10/17/17 03:07 Blast Cells % 0 % 10/17/17 03:07 Nucleated RBC % Not Reportable 10/17/17 03:07 Seg Neutrophils # 7.0 K/mm3 (1.8-7.7) 10/15/17 06:00 Seg Neutrophils # Man 0.7 K/mm3 (1.8-7.7) L 10/17/17 03:07 Band Neutrophils # 0.3 K/mm3 10/17/17 03:07 Lymphocytes # (Manual) 0.1 K/mm3 (1.2-5.4) L 10/17/17 03:07 Abs React Lymphs (Man) 0.0 K/mm3 10/17/17 03:07 Monocytes # (Manual) 0.1 K/mm3 (0.0-0.8) 10/17/17 03:07 Eosinophils # (Manual) 0.0 K/mm3 (0.0-0.4) 10/17/17 03:07 Basophils # (Manual) 0.0 K/mm3 (0.0-0.1) 10/17/17 03:07 Metamyelocytes # 0.0 K/mm3 10/17/17 03:07 Myelocytes # 0.1 K/mm3 10/17/17 03:07 Promyelocytes # 0.0 K/mm3 10/17/17 03:07 Blast Cells # 0.0 K/mm3 10/17/17 03:07 WBC Morphology Not Reportable 10/17/17 03:07 Hypersegmented Neuts Not Reportable 10/17/17 03:07 Hyposegmented Neuts Not Reportable 10/17/17 03:07 Hypogranular Neuts Not Reportable 10/17/17 03:07 Smudge Cells Not Reportable 10/17/17 03:07 Toxic Granulation Not Reportable 10/17/17 03:07 Toxic Vacuolation Not Reportable 10/17/17 03:07 Dohle Bodies Not Reportable 10/17/17 03:07 Pelger-Huet Anomaly Not Reportable 10/17/17 03:07 Hermila Rods Not Reportable 10/17/17 03:07 Platelet Estimate Cons 10/17/17 03:07 Clumped Platelets Not Reportable 10/17/17 03:07 Plt Clumps, EDTA Not Reportable 10/17/17 03:07 Large Platelets Not Reportable 10/17/17 03:07 Giant Platelets Not Reportable 10/17/17 03:07 Platelet Satelliting Not Reportable 10/17/17 03:07 Plt Morphology Comment Not Reportable 10/17/17 03:07 RBC Morphology Not Reportable 10/17/17 03:07 Dimorphic RBCs Not Reportable 10/17/17 03:07 Polychromasia Not Reportable 10/17/17 03:07 Hypochromasia Not Reportable 10/17/17 03:07 Poikilocytosis Not Reportable 10/17/17 03:07 Anisocytosis Not Reportable 10/17/17 03:07 Microcytosis Not Reportable 10/17/17 03:07 Macrocytosis Not Reportable 10/17/17 03:07 Spherocytes Not Reportable 10/17/17 03:07 Pappenheimer Bodies Not Reportable 10/17/17 03:07 Sickle Cells Not Reportable 10/17/17 03:07 Target Cells Not Reportable 10/17/17 03:07 Tear Drop Cells Not Reportable 10/17/17 03:07 Ovalocytes Not Reportable 10/17/17 03:07 Helmet Cells Not Reportable 10/17/17 03:07 [place] Bodies Not Reportable 10/17/17 03:07 [place] Rings Not Reportable 10/17/17 03:07 [place] Cells Not Reportable 10/17/17 03:07 Bite Cells Not Reportable 10/17/17 03:07 Crenated Cell 3+ 10/17/17 03:07 Elliptocytes Not Reportable 10/17/17 03:07 Acanthocytes (Spur) Not Reportable 10/17/17 03:07 Rouleaux Not Reportable 10/17/17 03:07 Hemoglobin C Crystals Not Reportable 10/17/17 03:07 Schistocytes Not Reportable 10/17/17 03:07 Malaria parasites Not Reportable 10/17/17 03:07 Jadon Bodies Not Reportable 10/17/17 03:07 Hem Pathologist Commnt No 10/17/17 03:07 PT 22.7 Sec. (12.2-14.9) H 10/14/17 21:00 INR 1.87 (0.87-1.13) H 10/14/17 21:00 APTT 29.2 Sec. (24.2-36.6) 10/12/17 13:10 POC ABG pH 7.111 (7.35-7.45) L 10/16/17 12:20 POC ABG pCO2 24.1 (35-45) L 10/16/17 12:20 POC ABG pO2 101 (80-105) 10/16/17 12:20 POC ABG HCO3 7.7 10/16/17 12:20 POC ABG Total CO2 8 10/16/17 12:20 POC ABG O2 Sat 95 10/16/17 12:20 POC ABG Base Excess -22 10/16/17 12:20 FiO2 28 % 10/16/17 12:20 Sodium 132 mmol/L (137-145) L D 10/17/17 03:07 Potassium 4.3 mmol/L (3.6-5.0) 10/17/17 03:07 Chloride 77.8 mmol/L (98-107) L 10/17/17 03:07 Carbon Dioxide 12 mmol/L (22-30) L 10/17/17 03:07 Anion Gap 47 mmol/L 10/17/17 03:07 BUN 110 mg/dL (9-20) H 10/17/17 03:07 Creatinine 1.2 mg/dL (0.8-1.5) 10/17/17 03:07 Estimated GFR > 60 ml/min 10/17/17 03:07 BUN/Creatinine Ratio 92 % 10/17/17 03:07 Glucose 308 mg/dL (75-100) H 10/17/17 03:07 POC Glucose 153 (70-105) H 10/17/17 05:38 Lactic Acid 28.90 mmol/L (0.7-2.0) H* 10/16/17 12:55 Calcium 6.4 mg/dL (8.4-10.2) L 10/17/17 03:07 Phosphorus 6.10 mg/dL (2.5-4.5) H 10/14/17 13:45 Magnesium 2.10 mg/dL (1.7-2.3) 10/14/17 13:45 Total Bilirubin 1.90 mg/dL (0.1-1.2) H 10/12/17 13:10 AST 120 units/L (5-40) H 10/12/17 13:10 ALT 77 units/L (7-56) H 10/12/17 13:10 Alkaline Phosphatase 716 units/L (35-129) H 10/12/17 13:10 Total Creatine Kinase 261 units/L (55-170) H 10/12/17 13:10 CK-MB (CK-2) 2.0 ng/mL (0.0-4.0) 10/12/17 13:10 CK-MB (CK-2) Rel Index 0.7 (0-4) 10/12/17 13:10 Troponin T < 0.010 ng/mL (0.00-0.029) 10/12/17 13:10 C-Reactive Protein 1.60 mg/dL (0.00-1.30) H 10/13/17 11:02 NT-Pro-B Natriuret Pep 1026 pg/mL (0-900) H 10/12/17 13:10 Total Protein 4.9 g/dL (6.3-8.2) L 10/12/17 13:10 Albumin 2.2 g/dL (3.9-5) L 10/12/17 13:10 Albumin/Globulin Ratio 0.8 % 10/12/17 13:10 TSH 5.130 mlU/mL (0.270-4.200) H 10/12/17 15:04 Free T4 0.32 ng/dL (0.76-1.46) L 10/12/17 15:04 Urine Color Yellow (Yellow) 10/12/17 16:20 Urine Turbidity Clear (Clear) 10/12/17 16:20 Urine pH 5.0 (5.0-7.0) 10/12/17 16:20 Ur Specific Boss 1.013 (1.003-1.030) 10/12/17 16:20 Urine Protein <15 mg/dl mg/dL (Negative) 10/12/17 16:20 Urine Glucose (UA) Neg mg/dL (Negative) 10/12/17 16:20 Urine Ketones Neg mg/dL (Negative) 10/12/17 16:20 Urine Blood Mod (Negative) 10/12/17 16:20 Urine Nitrite Neg (Negative) 10/12/17 16:20 Urine Bilirubin Neg (Negative) 10/12/17 16:20 Urine Urobilinogen < 2.0 mg/dL (<2.0) 10/12/17 16:20 Ur Leukocyte Esterase Neg (Negative) 10/12/17 16:20 Urine WBC (Auto) < 1.0 /HPF (0.0-6.0) 10/12/17 16:20 Urine RBC (Auto) < 1.0 /HPF (0.0-6.0) 10/12/17 16:20 U Epithel Cells (Auto) < 1.0 /HPF (0-13.0) 10/12/17 16:20 Urine Mucus Few /HPF 10/12/17 16:20 Urine Creatinine 34.6 mg/dL (0.1-20.0) H 10/13/17 12:40 Urine Sodium 11 mmol/L 10/13/17 12:40
--- NOTE | 2017-10-17 10:05 | XRay Report ---
AP CHEST: HISTORY: PICC placement A right arm PICC has been inserted which terminates near the cavoatrial junction. The remainder of the examination is unchanged since 10/16/17. IMPRESSION: Adequate right arm PICC placement
[2017-10-17] MEDS ORDERED: DIFLUCAN 200 MG/100 ML BAG IV SCH (11:00)
[2017-10-17] MEDS ORDERED: FLAGYL 500 MG/100 ML 500 MG/100 ML BAG IV SCH (11:00)
[2017-10-17] MEDS ORDERED: SODIUM BICARBONATE 150 MEQ in STERILE WATER 1,000 ML IV SCH (11:00)
[2017-10-17] MEDS: PEPCID PO SCH (11:16)
[2017-10-17] MEDS: SODIUM CHLORIDE FLUSH SYRINGE 10 ML IV SCH (11:17)
--- NOTE | 2017-10-17 11:23 | Progress Note ---
Assessment and Plan Severe Sepsis with Shock Acute Encephalopathy Persistent Hypoglycemia Lactic Acidosis (Suspect Type B element) Severe Sepsis with septic shock and MODS Hypoxemic Respiratory Failure IDANIA on CKD Colon cancer with liver metastasis - pull right PICC line and give 24-48 hour line holiday - get CXR re: pulmonary edema / aspiration - will do vasopressors in short if decompensates acutely while adhering to his goals of care wishes also - 2 large bore IV needles in meantime - continue enteral nutrition at 30mls/hr - continue bicarbonate drip - repeat ABG with pH 7.20 - off D10W and blood sugars holding - watch closely for pulmonary edema from third spacing - got nephrology consultation - continue cefepime and vancomycin - continue anti-infectives per ID recs - continue aspiration precautions - continue prn bronchodilators with pulmonary hygiene per RT - continue GI prophylaxis - hold on VTE prophylaxis re: coagulopathy - follow H&H - heme-onc evaluation is appropriate - continue to observe closely in ICU re: persistent hypoglycemia and sepsis - continue other care per attending / other consultants .... family has decided on hospice care but awaiting transfer; we will continue current care for now ... prognosis poor ...re-evaluate in am & prn ...30' CCT Subjective Date of service: 10/17/17 Principal diagnosis: Severe Sepsis with Shock; Acute Encephalopathy; Persistent Hypoglycemia Interval history: Patient is seen today for: Severe Sepsis with Shock; Acute Encephalopathy; Persistent Hypoglycemia Seen and examined at bedside; 24hour events reviewed; nursing and respiratory care staff consulted; no adverse overnight events reported to me; weaning off vasopressors but clinically no improvement; remains lethargic; no emesis or overt aspiration. Objective Vital Signs - 12hr 10/16/17 10/16/17 10/17/17 23:30 23:31 00:00 Temperature 98.4 F Pulse Rate 69 64 Respiratory 14 14 Rate Blood Pressure 95/69 95/69 O2 Sat by Pulse 96 96 Oximetry 10/17/17 10/17/17 10/17/17 00:01 00:30 01:00 Temperature Pulse Rate 81 80 82 Respiratory 14 14 15 Rate Blood Pressure 97/34 105/70 100/63 O2 Sat by Pulse 96 Oximetry 10/17/17 10/17/17 10/17/17 01:30 02:00 02:30 Temperature Pulse Rate 84 85 79 Respiratory 16 17 18 Rate Blood Pressure 90/67 111/70 112/58 O2 Sat by Pulse 93 94 98 Oximetry 10/17/17 10/17/17 10/17/17 03:00 03:31 03:33 Temperature 97.8 F Pulse Rate 79 82 Respiratory 18 17 Rate Blood Pressure 94/62 101/69 O2 Sat by Pulse 96 96 Oximetry 10/17/17 10/17/17 10/17/17 04:00 04:30 05:00 Temperature Pulse Rate 77 72 77 Respiratory 16 16 17 Rate Blood Pressure 103/69 103/65 110/62 O2 Sat by Pulse 90 98 89 Oximetry 10/17/17 10/17/17 10/17/17 05:31 06:01 08:00 Temperature 98.2 F Pulse Rate 80 77 Respiratory 19 17 Rate Blood Pressure 109/44 114/78 O2 Sat by Pulse 93 Oximetry 10/17/17 10/17/17 08:40 10:05 Temperature Pulse Rate Respiratory Rate Blood Pressure O2 Sat by Pulse 95 94 Oximetry Constitutional: lethargic, appears uncomfortable Eyes: non-icteric ENT: oropharynx moist, other (temporal wasting) Neck: supple, no lymphadenopathy, no JVD, other (no thyromegaly) Effort: mildly labored Ascultation: Bilateral: diminished breath sounds (bases), rhonchi Percussion: Right: dull, Left: not dull Cardiovascular: regular rate and rhythm, other (No R/M) Gastrointestinal: hypoactive bowel sounds, soft, non-tender, non-distended, other (mild wound dehiscence in lower abdominal wall sutures) Integumentary: other (poor turgor) Extremities: no cyanosis, pulses normal, no ischemia or petechiae, edema (2+) Neurologic: normal mental status, non-focal exam (grossly), pupils equal and round, CN II-XII normal, other (weak) Psychiatric: other (unable to assess) CBC and BMP: 10/17/17 03:07 10/17/17 03:07 ABG, PT/INR, D-dimer: ABG POC ABG pH 7.199 (7.35-7.45) L 10/17/17 10:08 POC ABG pCO2 33.0 (35-45) L 10/17/17 10:08 POC ABG pO2 75 (80-105) L 10/17/17 10:08 POC ABG HCO3 12.8 10/17/17 10:08 POC ABG Total CO2 14 10/17/17 10:08 POC ABG O2 Sat 91 10/17/17 10:08 PT/INR, D-dimer PT 22.7 Sec. (12.2-14.9) H 10/14/17 21:00 INR 1.87 (0.87-1.13) H 10/14/17 21:00 Abnormal lab findings: Abnormal Labs 10/12/17 10/12/17 10/12/17 12:45 12:57 13:10 WBC RBC 3.02 L Hgb 10.1 L Hct 30.7 L MCV 101 H MCH 33 H MCHC RDW 18.6 H Plt Count Lymph % (Auto) [place] % (Auto) Lymph # Seg Neutrophils % Seg Neuts % (Manual) 83.0 H Lymphocytes % (Manual) 13.0 L Monocytes % (Manual) Nucleated RBC % 2.0 H Seg Neutrophils # Man Lymphocytes # (Manual) 0.9 L PT INR POC ABG pH POC ABG pCO2 POC ABG pO2 Sodium Potassium Chloride Carbon Dioxide BUN Glucose POC Glucose < 40 L 192 H Lactic Acid Calcium Phosphorus Total Bilirubin AST ALT Alkaline Phosphatase Total Creatine Kinase C-Reactive Protein NT-Pro-B Natriuret Pep Total Protein Albumin TSH Free T4 Urine Creatinine 10/12/17 10/12/17 10/12/17 13:10 13:10 13:10 WBC RBC Hgb Hct MCV MCH MCHC RDW Plt Count Lymph % (Auto) [place] % (Auto) Lymph # Seg Neutrophils % Seg Neuts % (Manual) Lymphocytes % (Manual) Monocytes % (Manual) Nucleated RBC % Seg Neutrophils # Man Lymphocytes # (Manual) PT 21.0 H INR 1.70 H POC ABG pH POC ABG pCO2 POC ABG pO2 Sodium 150 H Potassium 5.6 H Chloride Carbon Dioxide 33 H BUN 143 H Glucose 173 H POC Glucose Lactic Acid Calcium 6.0 L Phosphorus Total Bilirubin 1.90 H AST 120 H ALT 77 H Alkaline Phosphatase 716 H Total Creatine Kinase 261 H C-Reactive Protein NT-Pro-B Natriuret Pep 1026 H Total Protein 4.9 L Albumin 2.2 L TSH Free T4 Urine Creatinine 10/12/17 10/12/17 10/12/17 13:36 14:22 14:45 WBC RBC Hgb Hct MCV MCH MCHC RDW Plt Count Lymph % (Auto) [place] % (Auto) Lymph # Seg Neutrophils % Seg Neuts % (Manual) Lymphocytes % (Manual) Monocytes % (Manual) Nucleated RBC % Seg Neutrophils # Man Lymphocytes # (Manual) PT INR POC ABG pH POC ABG pCO2 POC ABG pO2 Sodium Potassium Chloride Carbon Dioxide BUN Glucose POC Glucose 48 L Lactic Acid 5.90 H* 9.10 H* Calcium Phosphorus Total Bilirubin AST ALT Alkaline Phosphatase Total Creatine Kinase C-Reactive Protein NT-Pro-B Natriuret Pep Total Protein Albumin TSH Free T4 Urine Creatinine 10/12/17 10/12/17 10/12/17 14:59 15:04 16:11 WBC RBC Hgb Hct MCV MCH MCHC RDW Plt Count Lymph % (Auto) [place] % (Auto) Lymph # Seg Neutrophils % Seg Neuts % (Manual) Lymphocytes % (Manual) Monocytes % (Manual) Nucleated RBC % Seg Neutrophils # Man Lymphocytes # (Manual) PT INR POC ABG pH POC ABG pCO2 POC ABG pO2 Sodium Potassium Chloride Carbon Dioxide BUN Glucose POC Glucose 109 H Lactic Acid 9.10 H* Calcium Phosphorus Total Bilirubin AST ALT Alkaline Phosphatase Total Creatine Kinase C-Reactive Protein NT-Pro-B Natriuret Pep Total Protein Albumin TSH 5.130 H Free T4 0.32 L Urine Creatinine 10/12/17 10/12/17 10/12/17 17:23 18:41 19:34 WBC RBC Hgb Hct MCV MCH MCHC RDW Plt Count Lymph % (Auto) [place] % (Auto) Lymph # Seg Neutrophils % Seg Neuts % (Manual) Lymphocytes % (Manual) Monocytes % (Manual) Nucleated RBC % Seg Neutrophils # Man Lymphocytes # (Manual) PT INR POC ABG pH POC ABG pCO2 POC ABG pO2 Sodium 149 H Potassium Chloride Carbon Dioxide BUN 140 H Glucose POC Glucose 117 H Lactic Acid 10.20 H* Calcium 5.8 L* Phosphorus Total Bilirubin AST ALT Alkaline Phosphatase Total Creatine Kinase C-Reactive Protein NT-Pro-B Natriuret Pep Total Protein Albumin TSH Free T4 Urine Creatinine 10/12/17 10/12/17 10/12/17 19:40 22:34 Unknown WBC RBC Hgb Hct MCV MCH MCHC RDW Plt Count Lymph % (Auto) [place] % (Auto) Lymph # Seg Neutrophils % Seg Neuts % (Manual) Lymphocytes % (Manual) Monocytes % (Manual) Nucleated RBC % Seg Neutrophils # Man Lymphocytes # (Manual) PT INR POC ABG pH POC ABG pCO2 POC ABG pO2 Sodium Potassium Chloride Carbon Dioxide BUN Glucose POC Glucose 139 H 54 L Lactic Acid 9.90 H* Calcium Phosphorus Total Bilirubin AST ALT Alkaline Phosphatase Total Creatine Kinase C-Reactive Protein NT-Pro-B Natriuret Pep Total Protein Albumin TSH Free T4 Urine Creatinine 10/13/17 10/13/17 10/13/17 09:33 11:02 11:02 WBC RBC Hgb Hct MCV MCH MCHC RDW Plt Count Lymph % (Auto) [place] % (Auto) Lymph # Seg Neutrophils % Seg Neuts % (Manual) Lymphocytes % (Manual) Monocytes % (Manual) Nucleated RBC % Seg Neutrophils # Man Lymphocytes # (Manual) PT INR POC ABG pH POC ABG pCO2 POC ABG pO2 Sodium Potassium Chloride Carbon Dioxide BUN Glucose POC Glucose 44 L 58 L Lactic Acid Calcium Phosphorus Total Bilirubin AST ALT Alkaline Phosphatase Total Creatine Kinase C-Reactive Protein 1.60 H NT-Pro-B Natriuret Pep Total Protein Albumin TSH Free T4 Urine Creatinine 10/13/17 10/13/17 10/13/17 12:40 12:42 17:50 WBC RBC Hgb Hct MCV MCH MCHC RDW Plt Count Lymph % (Auto) [place] % (Auto) Lymph # Seg Neutrophils % Seg Neuts % (Manual) Lymphocytes % (Manual) Monocytes % (Manual) Nucleated RBC % Seg Neutrophils # Man Lymphocytes # (Manual) PT INR POC ABG pH POC ABG pCO2 POC ABG pO2 Sodium Potassium Chloride Carbon Dioxide BUN Glucose POC Glucose 108 H 50 L Lactic Acid Calcium Phosphorus Total Bilirubin AST ALT Alkaline Phosphatase Total Creatine Kinase C-Reactive Protein NT-Pro-B Natriuret Pep Total Protein Albumin TSH Free T4 Urine Creatinine 34.6 H 10/13/17 10/13/17 10/14/17 21:54 22:44 02:56 WBC RBC Hgb Hct MCV MCH MCHC RDW Plt Count Lymph % (Auto) [place] % (Auto) Lymph # Seg Neutrophils % Seg Neuts % (Manual) Lymphocytes % (Manual) Monocytes % (Manual) Nucleated RBC % Seg Neutrophils # Man Lymphocytes # (Manual) PT INR POC ABG pH POC ABG pCO2 POC ABG pO2 Sodium Potassium Chloride Carbon Dioxide BUN Glucose POC Glucose 69 L 125 H 66 L Lactic Acid Calcium Phosphorus Total Bilirubin AST ALT Alkaline Phosphatase Total Creatine Kinase C-Reactive Protein NT-Pro-B Natriuret Pep Total Protein Albumin TSH Free T4 Urine Creatinine 10/14/17 10/14/17 10/14/17 13:32 13:45 13:45 WBC RBC 2.93 L Hgb 10.0 L Hct 30.4 L MCV 104 H MCH 34 H MCHC RDW 19.5 H Plt Count 104 L Lymph % (Auto) 11.6 L [place] % (Auto) 7.4 H Lymph # 0.9 L Seg Neutrophils % 80.8 H Seg Neuts % (Manual) Lymphocytes % (Manual) Monocytes % (Manual) Nucleated RBC % Seg Neutrophils # Man Lymphocytes # (Manual) PT INR POC ABG pH POC ABG pCO2 POC ABG pO2 Sodium Potassium Chloride Carbon Dioxide BUN Glucose POC Glucose < 40 L Lactic Acid Calcium Phosphorus 6.10 H Total Bilirubin AST ALT Alkaline Phosphatase Total Creatine Kinase C-Reactive Protein NT-Pro-B Natriuret Pep Total Protein Albumin TSH Free T4 Urine Creatinine 10/14/17 10/14/17 10/14/17 13:45 13:45 13:59 WBC RBC Hgb Hct MCV MCH MCHC RDW Plt Count Lymph % (Auto) [place] % (Auto) Lymph # Seg Neutrophils % Seg Neuts % (Manual) Lymphocytes % (Manual) Monocytes % (Manual) Nucleated RBC % Seg Neutrophils # Man Lymphocytes # (Manual) PT INR POC ABG pH POC ABG pCO2 POC ABG pO2 Sodium Potassium Chloride Carbon Dioxide 17 L BUN 127 H Glucose POC Glucose 144 H Lactic Acid 13.30 H* Calcium 5.7 L* Phosphorus Total Bilirubin AST ALT Alkaline Phosphatase Total Creatine Kinase C-Reactive Protein NT-Pro-B Natriuret Pep Total Protein Albumin TSH Free T4 Urine Creatinine 10/14/17 10/14/17 10/14/17 14:43 15:57 17:12 WBC RBC Hgb Hct MCV MCH MCHC RDW Plt Count Lymph % (Auto) [place] % (Auto) Lymph # Seg Neutrophils % Seg Neuts % (Manual) Lymphocytes % (Manual) Monocytes % (Manual) Nucleated RBC % Seg Neutrophils # Man Lymphocytes # (Manual) PT INR POC ABG pH POC ABG pCO2 POC ABG pO2 Sodium Potassium Chloride Carbon Dioxide BUN Glucose POC Glucose 54 L Lactic Acid 15.10 H* 16.80 H* Calcium Phosphorus Total Bilirubin AST ALT Alkaline Phosphatase Total Creatine Kinase C-Reactive Protein NT-Pro-B Natriuret Pep Total Protein Albumin TSH Free T4 Urine Creatinine 10/14/17 10/14/17 10/14/17 17:31 21:00 21:00 WBC RBC Hgb Hct MCV MCH MCHC RDW Plt Count Lymph % (Auto) [place] % (Auto) Lymph # Seg Neutrophils % Seg Neuts % (Manual) Lymphocytes % (Manual) Monocytes % (Manual) Nucleated RBC % Seg Neutrophils # Man Lymphocytes # (Manual) PT 22.7 H INR 1.87 H POC ABG pH 7.245 L POC ABG pCO2 32.8 L POC ABG pO2 Sodium Potassium Chloride Carbon Dioxide BUN Glucose POC Glucose Lactic Acid 14.90 H* Calcium Phosphorus Total Bilirubin AST ALT Alkaline Phosphatase Total Creatine Kinase C-Reactive Protein NT-Pro-B Natriuret Pep Total Protein Albumin TSH Free T4 Urine Creatinine 10/14/17 10/14/17 10/14/17 21:33 21:35 23:00 WBC RBC Hgb Hct MCV MCH MCHC RDW Plt Count Lymph % (Auto) [place] % (Auto) Lymph # Seg Neutrophils % Seg Neuts % (Manual) Lymphocytes % (Manual) Monocytes % (Manual) Nucleated RBC % Seg Neutrophils # Man Lymphocytes # (Manual) PT INR POC ABG pH POC ABG pCO2 POC ABG pO2 Sodium Potassium Chloride Carbon Dioxide BUN Glucose 35 L* POC Glucose < 40 L Lactic Acid 14.10 H* Calcium Phosphorus Total Bilirubin AST ALT Alkaline Phosphatase Total Creatine Kinase C-Reactive Protein NT-Pro-B Natriuret Pep Total Protein Albumin TSH Free T4 Urine Creatinine 10/15/17 10/15/17 10/15/17 03:50 06:00 06:00 WBC RBC 2.85 L Hgb 9.7 L Hct 29.2 L MCV 102 H MCH 34 H MCHC RDW 19.1 H Plt Count 95 L Lymph % (Auto) 11.1 L [place] % (Auto) Lymph # 0.9 L Seg Neutrophils % 83.7 H Seg Neuts % (Manual) Lymphocytes % (Manual) Monocytes % (Manual) Nucleated RBC % Seg Neutrophils # Man Lymphocytes # (Manual) PT INR POC ABG pH POC ABG pCO2 POC ABG pO2 Sodium Potassium Chloride 91.0 L Carbon Dioxide BUN 118 H Glucose 319 H POC Glucose Lactic Acid 14.40 H* Calcium 5.6 L* Phosphorus Total Bilirubin AST ALT Alkaline Phosphatase Total Creatine Kinase C-Reactive Protein NT-Pro-B Natriuret Pep Total Protein Albumin TSH Free T4 Urine Creatinine 05/11/2710/15/17 10/15/17 09:52 10:00 14:37 WBC RBC Hgb Hct MCV MCH MCHC RDW Plt Count Lymph % (Auto) [place] % (Auto) Lymph # Seg Neutrophils % Seg Neuts % (Manual) Lymphocytes % (Manual) Monocytes % (Manual) Nucleated RBC % Seg Neutrophils # Man Lymphocytes # (Manual) PT INR POC ABG pH 7.210 L POC ABG pCO2 28.9 L POC ABG pO2 115 H Sodium Potassium Chloride Carbon Dioxide BUN Glucose POC Glucose 119 H 53 L Lactic Acid Calcium Phosphorus Total Bilirubin AST ALT Alkaline Phosphatase Total Creatine Kinase C-Reactive Protein NT-Pro-B Natriuret Pep Total Protein Albumin TSH Free T4 Urine Creatinine 10/15/17 10/16/17 10/16/17 21:56 02:04 04:30 WBC RBC 3.01 L Hgb 9.8 L Hct 32.5 L MCV 108 H MCH 33 H MCHC 30 L RDW 20.0 H Plt Count 110 L Lymph % (Auto) [place] % (Auto) Lymph # Seg Neutrophils % Seg Neuts % (Manual) 87.0 H Lymphocytes % (Manual) 6.0 L Monocytes % (Manual) Nucleated RBC % 1.0 H Seg Neutrophils # Man 8.4 H Lymphocytes # (Manual) 0.6 L PT INR POC ABG pH POC ABG pCO2 POC ABG pO2 Sodium Potassium Chloride Carbon Dioxide BUN Glucose POC Glucose 111 H 138 H Lactic Acid Calcium Phosphorus Total Bilirubin AST ALT Alkaline Phosphatase Total Creatine Kinase C-Reactive Protein NT-Pro-B Natriuret Pep Total Protein Albumin TSH Free T4 Urine Creatinine 10/16/17 10/16/17 10/16/17 04:30 05:36 10:41 WBC RBC Hgb Hct MCV MCH MCHC RDW Plt Count Lymph % (Auto) [place] % (Auto) Lymph # Seg Neutrophils % Seg Neuts % (Manual) Lymphocytes % (Manual) Monocytes % (Manual) Nucleated RBC % Seg Neutrophils # Man Lymphocytes # (Manual) PT INR POC ABG pH POC ABG pCO2 POC ABG pO2 Sodium Potassium Chloride 87.5 L Carbon Dioxide 8 L* D BUN 120 H Glucose 142 H POC Glucose 154 H 193 H Lactic Acid Calcium 6.8 L D Phosphorus Total Bilirubin AST ALT Alkaline Phosphatase Total Creatine Kinase C-Reactive Protein NT-Pro-B Natriuret Pep Total Protein Albumin TSH Free T4 Urine Creatinine 10/16/17 10/16/17 10/16/17 12:20 12:55 13:50 WBC RBC Hgb Hct MCV MCH MCHC RDW Plt Count Lymph % (Auto) [place] % (Auto) Lymph # Seg Neutrophils % Seg Neuts % (Manual) Lymphocytes % (Manual) Monocytes % (Manual) Nucleated RBC % Seg Neutrophils # Man Lymphocytes # (Manual) PT INR POC ABG pH 7.111 L POC ABG pCO2 24.1 L POC ABG pO2 Sodium Potassium Chloride Carbon Dioxide BUN Glucose POC Glucose 222 H Lactic Acid 28.90 H* Calcium Phosphorus Total Bilirubin AST ALT Alkaline Phosphatase Total Creatine Kinase C-Reactive Protein NT-Pro-B Natriuret Pep Total Protein Albumin TSH Free T4 Urine Creatinine 10/16/17 10/16/17 10/17/17 18:10 21:56 01:52 WBC RBC Hgb Hct MCV MCH MCHC RDW Plt Count Lymph % (Auto) [place] % (Auto) Lymph # Seg Neutrophils % Seg Neuts % (Manual) Lymphocytes % (Manual) Monocytes % (Manual) Nucleated RBC % Seg Neutrophils # Man Lymphocytes # (Manual) PT INR POC ABG pH POC ABG pCO2 POC ABG pO2 Sodium Potassium Chloride Carbon Dioxide BUN Glucose POC Glucose 195 H 181 H 193 H Lactic Acid Calcium Phosphorus Total Bilirubin AST ALT Alkaline Phosphatase Total Creatine Kinase C-Reactive Protein NT-Pro-B Natriuret Pep Total Protein Albumin TSH Free T4 Urine Creatinine 10/17/17 10/17/17 10/17/17 03:07 03:07 05:38 WBC 1.3 L* RBC 3.44 L Hgb 10.9 L Hct MCV 108 H MCH MCHC 30 L RDW 19.1 H Plt Count 58 L Lymph % (Auto) [place] % (Auto) Lymph # Seg Neutrophils % Seg Neuts % (Manual) Lymphocytes % (Manual) 8.0 L Monocytes % (Manual) 8.0 H Nucleated RBC % Seg Neutrophils # Man 0.7 L Lymphocytes # (Manual) 0.1 L PT INR POC ABG pH POC ABG pCO2 POC ABG pO2 Sodium 132 L D Potassium Chloride 77.8 L Carbon Dioxide 12 L BUN 110 H Glucose 308 H POC Glucose 153 H Lactic Acid Calcium 6.4 L Phosphorus Total Bilirubin AST ALT Alkaline Phosphatase Total Creatine Kinase C-Reactive Protein NT-Pro-B Natriuret Pep Total Protein Albumin TSH Free T4 Urine Creatinine 10/17/17 10/17/17 10:08 10:29 WBC RBC Hgb Hct MCV MCH MCHC RDW Plt Count Lymph % (Auto) [place] % (Auto) Lymph # Seg Neutrophils % Seg Neuts % (Manual) Lymphocytes % (Manual) Monocytes % (Manual) Nucleated RBC % Seg Neutrophils # Man Lymphocytes # (Manual) PT INR POC ABG pH 7.199 L POC ABG pCO2 33.0 L POC ABG pO2 75 L Sodium Potassium Chloride Carbon Dioxide BUN Glucose POC Glucose 107 H Lactic Acid Calcium Phosphorus Total Bilirubin AST ALT Alkaline Phosphatase Total Creatine Kinase C-Reactive Protein NT-Pro-B Natriuret Pep Total Protein Albumin TSH Free T4 Urine Creatinine Chest x-ray: image reviewed Allied health notes reviewed: nursing
[2017-10-17] MEDS: SODIUM CHLORIDE FLUSH SYRINGE 10 ML IV PRN ×4 (12:35→15:33)
[2017-10-17 12:40] LABS: Bacteria,Urine 2+ /HPF (Negative); Bilirubin,Urine NEG (Negative); Blood,Urine LG (Negative); Color,Urine Amber (Yellow); Mucus,Urine FEW /HPF; Urobilinogen,Urine < 2.0 mg/dL (<2.0)
[2017-10-17 13:24] LABS: Creatinine,Urine 27.3 mg/dL (0.1-20.0)
[2017-10-17] MEDS: SUBLIMAZE IV PRN ×2 (13:39→18:25)
[2017-10-17] MEDS: D50W (25GM) Syringe IV PRN (14:15)
[2017-10-17] MEDS: D10W 1,000 ML IV SCH (14:19)
--- NOTE | 2017-10-17 17:37 | Discharge Summary ---
Providers - Providers Date of Admission: 10/12/17 16:57 Attending physician: RADHA GATICA MD 10/12/17 19:13 Consult to Physician [CONS] Routine Comment: Consulting Provider: CARTER NAYAK Physician Instructions: Reason For Exam: CCU 10/13/17 02:20 Consult to Wound/ET Nurse [CONS] Routine Reason For Exam: wound eval - sacral wound, ostomy 10/13/17 11:55 Consult to Physician [CONS] Routine Comment: Consulting Provider: CHIKA CONNOLLY Physician Instructions: Reason For Exam: incision 10/13/17 12:15 Consult to Physician [CONS] Routine Comment: Consulting Provider: ELAN GLEZ Physician Instructions: Reason For Exam: abd wound infection, sepsis 10/14/17 15:59 Consult to Dietitian/Nutrition [CONS] Routine Physician Instructions: Assess nutrtn needs, initiate, modify, manage TF Reason For Exam: Reason for Consult: Write/Manage Tube Feeding Reason for Consult: Write/Manage Tube Feeding 10/14/17 19:29 Consult to Dietitian/Nutrition [CONS] Routine Physician Instructions: Assess nutrtn needs, initiate, modify, manage TF Reason For Exam: Reason for Consult: Write/Manage Tube Feeding Reason for Consult: Write/Manage Tube Feeding 10/16/17 13:08 Consult to Physician [CONS] Routine Comment: Consulting Provider: STEVEN PIERCE Physician Instructions: Reason For Exam: IDANIA 10/17/17 08:00 Consult to PICC Line RN [CONS] Routine Reason For Exam: hypotension Type Line:: PICC Primary care physician: MARK CALIXTO Hospitalization Reason for admission: septic shock, metastatic colon cancer Disposition: [id number] ([facility]) Time spent for discharge: 31 minutes - Discharge Diagnoses (1) Septic shock Status: Acute (2) Encephalopathy Status: Acute (3) Hypernatremia Status: Acute (4) Hypernatremia Status: Acute (5) Lactic acid acidosis Status: Acute (6) Mental status alteration Status: Acute (7) Myxedema coma Status: Acute (8) Acute hypoxemic respiratory failure Status: Acute (9) Colon cancer metastasized to liver Status: Acute (10) Perforated abdominal viscus Status: Acute (11) Sepsis Status: Acute (12) Malnutrition Status: Chronic Qualifiers: Protein-calorie malnutrition severity: unspecified severity Core Measure Documentation - Palliative Care Palliative Care/ Comfort Measures: Not Applicable - Core Measures Any of the following diagnoses?: none Exam - Physical Exam Narrative exam: Not in cardiopulmonary distress. The patient appeared emaciated. Vital signs as documented. Head exam is unremarkable. No scleral icterus . Neck is without jugular venous distension, thyromegaly, or carotid bruits. Lungs are clear to auscultation. Cardiac exam reveals regular rate and Rhythm. First and second heart sounds normal. No murmurs, rubs or gallops. Abdominal exam reveals dressing in the abdomen. Extremities are nonedematous and both femoral and pedal pulses are normal. OFFAL ICER POULTRY: Patient is noncommunicative. - Constitutional Vitals: Temp Pulse Resp BP Pulse Ox 98.6 F 82 21 41/26 87 10/17/17 16:00 10/17/17 16:01 10/17/17 16:01 10/17/17 16:01 10/17/17 16:01 Plan Activity: advance as tolerated Weight Bearing Status: Non-Weight Bearing Diet: per dietitian instruction Follow up with: MARK CALIXTO MD [Primary Care Provider] - 7 Days
[2017-10-17 18:11] VITALS: BP 96/61
== END 2017-10-17 19:15 | DRG 871 ==
LOC: ED 12:24 → 4A 16:57 → CC1 21:29
PROVIDERS: ADMIT Internal Medicine; ATTEND Internal Medicine
PROC: 4A033R1 Measurement of Arterial Saturation, Peripheral, Percutaneous Approach (ICD-10-PCS; 2017-10-12)
PROC: 5A09457 Assistance with Respiratory Ventilation, 24-96 Consecutive Hours, Continuous Positive Airway Pressure (ICD-10-PCS; 2017-10-15)
PROC: 02HV33Z Insertion of Infusion Device into Superior Vena Cava, Percutaneous Approach (ICD-10-PCS; principal; 2017-10-17)
DX: A41.9 Sepsis, unspecified organism (principal); E03.5 Myxedema coma; R65.21 Severe sepsis with septic shock; J96.01 Acute respiratory failure with hypoxia; E43 Unspecified severe protein-calorie malnutrition; N17.0 Acute kidney failure with tubular necrosis; G92 Toxic encephalopathy; E87.0 Hyperosmolality and hypernatremia; C18.9 Malignant neoplasm of colon, unspecified; C78.7 Secondary malignant neoplasm of liver and intrahepatic bile duct; L03.311 Cellulitis of abdominal wall; D68.9 Coagulation defect, unspecified; I10 Essential (primary) hypertension; E16.2 Hypoglycemia, unspecified; E86.0 Dehydration; F03.90 Unspecified dementia, unspecified severity, without behavioral disturbance, psychotic disturbance, mood disturbance, and anxiety; D64.9 Anemia, unspecified; K76.89 Other specified diseases of liver; R74.0 Nonspecific elevation of levels of transaminase and lactic acid dehydrogenase [LDH]; Z90.49 Acquired absence of other specified parts of digestive tract; Z86.718 Personal history of other venous thrombosis and embolism; Z68.21 Body mass index [BMI] 21.0-21.9, adult; Z86.711 Personal history of pulmonary embolism; Z79.899 Other long term (current) drug therapy
CPT/HCPCS: 36415; 36600; 70450; 71045; 74018; 74150; 80048; 80053; 81001; 82140; 82270; 82330; 82550; 82553; 82570; 82803; 82947; 82962; 83735; 83880; 84100; 84156; 84300; 84439; 84443; 84484; 85007; 85025; 85610; 85730; 86140; 87040; 87076; 87086; 87186; 93005; 93010; 94660; 94760; 96361; 96374; 96375; 96376; J0690; J0692; J1450; J1644; J2270; J2405; J3010; J3370; J7030; J7050; J7070